=== PATIENT | male | born 1940 | race African-American/Black ===

== ENCOUNTER 2017-12-08 18:24 | Inpatient (IN) | payer OTHER, MEDICARE ==
[~2017-12-08] VITALS: Ht 175.3 cm; Wt 74.8 kg
[~2017-12-08 18:24] MED LIST: AMLO10TA2 PO; CLON0.1T PO; GABA300C5 PO; NALOXONE HCL 0.4 MG/ML AMP IV PUSH PRN; SODIUM CHLORIDE 0.9% FLUSH 10 ML FLUSH IV FLUSH PRN; WARF-18 PO
[2017-12-08] MEDS ORDERED: GADODIAMIDE PF 287 MG/ML 5 ML VIAL (for RAD MRI) IVCONTRAST ONE (18:35)
--- NOTE | 2017-12-08 19:28 | RADRPT ---
EXAM DATE/TIME: 12/08/2017 18:53 [facility] COMPARISON: No previous studies available for comparison. INDICATIONS : Bilateral leg swelling. MEDICAL HISTORY : Hypertension. Anticoagulant therapy, coumadin. SURGICAL HISTORY : None. ENCOUNTER: Initial ACUITY: 1 week PAIN SCORE: 2/10 LOCATION: Bilateral legs. TECHNIQUE: Venous ultrasound of the left and right leg was performed from the inguinal ligament to the proximal calf. Real-time, color Doppler and spectral tracing, compression and augmentation techniques were us ed. FINDINGS: RIGHT LEG: There is normal compressibility of the deep venous system from the inguinal region to the proximal ca lf. No echogenic clot is seen in the lumen of the common femoral, femoral, popliteal, and posterior tibial veins. There is a normal response of the venous system to proximal and distal augmentation an d respiration. LEFT LEG: There is normal compressibility of the deep venous system from the inguinal region to the proximal ca lf. No echogenic clot is seen in the lumen of the common femoral, femoral, popliteal, and posterior tibial veins. There is a normal response of the venous system to proximal and distal augmentation an d respiration. CONCLUSION: Normal examination. Manuel Perez MD on December 08, 2017 at 19:26 Board Certified Radiologist. This report was verified electronically.
--- NOTE | 2017-12-08 20:22 | HHI.HP ---
[facility] Non-Staff Admission Diagnosis Diagnoses: Travel History International Travel<30 Days: No Contact w/Intl Traveler <30 Da: No Traveled to Known Affected Are: No History of Present Illness hx from patient, at the bedside, daughter at the bedside, and review of records. pt is transferred here from [place] er reports headaches and dizziness for past 2 days poor historian closing his eyes during interview bp was high in [place] and here as well 189/85 vison problems over past few months no fever no neck pain urinary incontinence for past 1 yr or so denies missing his meds fell down today fell down last month once as well it wasnt witnessed , he told his he fell he stated he fell on his bottom did not hit head no syncope otherwise denies other symptoms but again, closing his eyes during interview likely due to headaches or photosensitivity though he denies when asked Review of Systems Except as stated in HPI: all other systems reviewed are Neg Past Family Social History Past Medical History htn chronic anticoagulation on coumadin- started 2weeks ago stated for circulation for his foot-was started only 2 weeks ago by new pcp who he saw 2 weeks ago Past Surgical History none Allergies: Coded Allergies: No Known Allergies (Unverified , 12/08/17) Family History none that he knows of Social History still smokes 1.5 pack a day drinks only if he has drinks at home - but not every day no drugs Physical Exam Physical Exam GENERAL: This is a well-nourished, well-developed patient, in no apparent distress. SKIN: No rashes, ecchymoses or lesions. Cool and dry. HEAD: Atraumatic. Normocephalic. No temporal or scalp tenderness. EYES: No scleral icterus. No injection or drainage. ENT: Nose without bleeding, purulent drainage or septal hematoma. Airway patent. NECK: Trachea midline. No JVD. Supple, nontender, no meningeal signs. CARDIOVASCULAR: Regular rate and rhythm without murmurs, gallops, or rubs. RESPIRATORY: Clear to auscultation. Breath sounds equal bilaterally. No wheezes , rales, or rhonchi. GASTROINTESTINAL: Abdomen soft, non-tender, nondistended. . No guarding. MUSCULOSKELETAL: Extremities without clubbing, cyanosis, or edema. No calf tenderness. NEUROLOGICAL: Awake and alert. Motor and sensory grossly within normal limits. Normal speech. Laboratory labs from [place] reviewed Imaging ct brain from [place] er reviewed Caprini VTE Risk Assessment Caprini VTE Risk Assessment: Mod/High Risk (score >= 2) Caprini Risk Assessment Model Point Value = 1 Point Value = 2 Point Value = 3 Point Value = 5 Age 41-60 Minor surgery BMI > 25 kg/m2 Swollen legs Varicose veins or History of unexplained or recurrent spontaneous Oral contraceptives or hormone replacement Sepsis (< 1 month) Serious lung disease, including pneumonia (< 1 month) Abnormal pulmonary function Acute myocardial infarction Congestive heart failure (< 1 month) History of inflammatory bowel disease Medical patient at bed rest Age 61-74 Arthroscopic surgery Major open surgery (> 45 min) Laparoscopic surgery (> 45 min) Malignancy Confined to bed (> 72 hours) Immobilizing plaster cast Central venous access Age >= 75 History of VTE Family history of VTE Factor V Leiden Prothrombin [id number] Lupus anticoagulant Anticardiolipin antibodies Elevated serum homocysteine Heparin-induced thrombocytopenia Other congenital or acquired thrombophilia Stroke (< 1 month) Elective arthroplasty Hip, pelvis, or leg fracture Acute spinal cord injury (< 1 month) Prophylaxis Regimen Total Risk Factor Score Risk Level Prophylaxis Regimen 0-1 Low Early ambulation 2 Moderate Order ONE of the following: *Sequential Compression Device (SCD) *Heparin 5000 units SQ BID 3-4 Higher Order ONE of the following medications: *Heparin 5000 units SQ TID *Enoxaparin/Lovenox 40 mg SQ daily (WT < 150 kg, CrCl > 30 mL/min) *Enoxaparin/Lovenox 30 mg SQ daily (WT < 150 kg, CrCl > 10-29 mL/min) *Enoxaparin/Lovenox 30 mg SQ BID (WT < 150 kg, CrCl > 30 mL/min) AND/OR *Sequential Compression Device (SCD) 5 or more Highest Order ONE of the following medications: *Heparin 5000 units SQ TID (Preferred with Epidurals) *Enoxaparin/Lovenox 40 mg SQ daily (WT < 150 kg, CrCl > 30 mL/min) *Enoxaparin/Lovenox 30 mg SQ daily (WT < 150 kg, CrCl > 10-29 mL/min) *Enoxaparin/Lovenox 30 mg SQ BID (WT < 150 kg, CrCl > 30 mL/min) AND *Sequential Compression Device (SCD) Assessment and Plan Assessment and Plan Impression: hypertensive urgency with headaches- requiring several doses of iv meds in ER and still high currently sellar mass on CT with visual disturbance/ dizziness/ falls chronic anticoagulation on coumadin LE swelling per ER chronic venous stasis on exam Plan: mri of brain US of LE - no dvt clonidine 0.1mg po qhs now hydralazine 10mg iv q30min PRN for BP>160/90 hold coumadin for now will get info from pcp re coumadin neurosx consult for sellar mass resume home meds scd change to full admit pt daisha Discussed Condition With patient, family at bedside Carmen Keller MD Dec 08, 2017 20:22
[2017-12-08] MEDS ORDERED: cloNIDine HCL 0.1 MG TAB PO SCH (21:00)
[2017-12-08] MEDS: GABAPENTIN 300 MG CAP PO SCH (21:04)
[2017-12-08] MEDS: SODIUM CHLORIDE 0.9% FLUSH 10 ML FLUSH IV FLUSH SCH (21:04)
[2017-12-08] MEDS: hydrALAZINE HCL 20 MG/ML VIAL IV PUSH PRN (21:04)
--- NOTE | 2017-12-08 21:08 | RADRPT ---
EXAM DATE/TIME: 12/08/2017 20:38 [facility] COMPARISON: CHEST SINGLE AP, December 08, 2017, 17:09. INDICATIONS : Dyspnea. MEDICAL HISTORY : Hypertension. SURGICAL HISTORY : None. ENCOUNTER: Initial ACUITY: 1 day PAIN SCORE: 0/10 LOCATION: Bilateral chest FINDINGS: A single view of the chest demonstrates no focal dense consolidation. Minimal scattered opacity proba kenyetta atelectasis. No effusion. No pneumothorax. Heart size within normal limits. Tortuous aorta. CONCLUSION: 1. No focal consolidation or significant effusion. Tortuous aorta. Manuel Perez MD on December 08, 2017 at 21:03 Board Certified Radiologist. This report was verified electronically.
[2017-12-08 21:12] VITALS: BP 199/88; PULSE 91; RESP 18; O2SAT 100
[2017-12-08] MEDS ORDERED: LABETALOL HCL 100 MG/20 ML VIAL IV PUSH ONE (22:00)
[2017-12-08 23:00] VITALS: BP 168/59; PULSE 78; RESP 18; O2SAT 92
--- NOTE | 2017-12-08 23:41 | RADRPT ---
EXAM DATE/TIME: 12/08/2017 21:51 [facility] COMPARISON: No previous studies available for comparison. INDICATIONS : Mass. Sellar mass. CONTRAST: 16 cc Omniscan (gadodiamide) IV MEDICAL HISTORY : Hypertension. SURGICAL HISTORY : None. ENCOUNTER: Initial ACUITY: 1 day PAIN SCORE: Nonresponsive. LOCATION: Basal ganglia lacunar infarcts. cranial TECHNIQUE: Multiplanar, multisequence MRI of the brain was performed both prior to and following the administrat ion of paramagnetic contrast. FINDINGS: CEREBRUM: The ventricles are normal for age. No evidence of midline shift, mass lesion, hemorrhage or acute in farction. No extraaxial fluid collections are seen. There is a large sellar/suprasellar mass which i s of mixed signal intensity and contains high T2 signal. This measures 2.6 x 1.7 cm and does abut the optic chiasm. No significant enhancement identified although there is some motion artifact limiting evaluation. WHITE MATTER: Scattered T2 bright signal abnormalities are seen in the white matter. POSTERIOR FOSSA: The cerebellum and brainstem are intact. The 4th ventricle is midline. The cerebellopontine angle is unremarkable. The cerebellar tonsils are normal in position. DIFFUSION IMAGING: No focal areas of restricted diffusion are seen. No evidence of acute infarction. EXTRACRANIAL: The visualized portions of the orbits and paranasal sinuses are unremarkable. POST-CONTRAST: No abnormal areas of parenchymal or dural enhancement. No evidence of blood-brain barrier breakdown. CONCLUSION: 1. 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 This is of mixed signal intensity. No definite enh ancement. 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 Followup study in 3 months recommended for kandice bone. 2. Cerebral atrophy with old bilateral basal ganglia lacunar infarcts. 3. The Sean Rodriguez MD on December 08, 2017 at 23:34 Board Certified Radiologist. This report was verified electronically.
[2017-12-09] VITALS (13 sets, daily range): BP systolic 139–208; BP diastolic 67–88; PULSE 85–125; RESP 16–30; TEMP 102.2–102.3; O2SAT 90–98
[2017-12-09] MEDS: hydrALAZINE HCL 20 MG/ML VIAL IV PUSH PRN ×3 (05:05→18:29)
[2017-12-09 06:40] LABS: BASOPHIL % 0.5 % (0.0-2.0); EOSINOPHIL # 0.1 TH/MM3 (0-0.4); EOSINOPHIL % 1.7 % (0.0-4.0); HEMATOCRIT 36.4 % (39.0-51.0); LYMPH % 22.4 % (9.0-44.0); LYMPHOCYTE # 1.5 TH/MM3 (1.0-4.8); MEAN CELL VOLUME 84.9 FL (80.0-100.0); MEAN CORPUSCULAR HEMOGLOBIN 28.1 PG (27.0-34.0); MEAN CORPUSCULAR HGB CONC 33.1 % (32.0-36.0); MEAN PLATELET VOLUME 7.9 FL (7.0-11.0); MONO % 16.1 % (0.0-8.0); MONOCYTE # 1.1 TH/MM3 (0-0.9); NEUT % 59.3 % (16.0-70.0); PLATELET COUNT 215 TH/MM3 (150-450); RED BLOOD COUNT 4.29 MIL/MM3 (4.50-5.90); WHITE BLOOD COUNT 6.8 TH/MM3 (4.0-11.0)
[2017-12-09 07:02] LABS: BICARBONATE 26.8 MEQ/L (21.0-32.0); CALCIUM 9.2 MG/DL (8.5-10.1); CREATININE 1.71 MG/DL (0.60-1.30)
[2017-12-09] MEDS: SODIUM CHLORIDE 0.9% FLUSH 10 ML FLUSH IV FLUSH SCH ×2 (09:30→20:13)
[2017-12-09] MEDS: GABAPENTIN 300 MG CAP PO SCH ×3 (09:30→21:00)
--- NOTE | 2017-12-09 09:38 | PD.CONS ---
HPI Service neurosurgery Consult Requested By Dr Smith Reason for Consult Mass Primary Care Physician Non-Staff History of Present Illness This is a 77 years old Black man who presented to the ER with the history of headaches and dizziness 2 days prior to admission His work up was significant for a suprasellar mass consistent with a macroadenoma. He is currently unable to provide a good history and in fact is only able to open his eyes but not able to answer questions. A sepsis alert was just released on him. He was also found to have high blood pressureas a hypertensive urgency. Past Family Social History Allergies: Coded Allergies: No Known Allergies (Unverified , 12/08/17) Past Medical History chronic anticoagulation on coumadin stated for circulation for his foot-was started only 2 weeks ago by new pcp who he saw 2 weeks ago Past Surgical History none Active Ordered Medications Current Medications Sodium Chloride (NS Flush) 2 ml UNSCH PRN IV FLUSH FLUSH AFTER USING IV ACCESS ; Start 12/08/17 at 15:45 Sodium Chloride (NS Flush) 2 ml BID IV FLUSH Last administered on 12/11/17at 21: 19; Start 12/08/17 at 21:00 Naloxone HCl (Narcan Inj) 0.4 mg UNSCH PRN IV PUSH SEE LABEL COMMENTS; Start at 15:45; Stop 12/10/17 at 13:16; Status DC Amlodipine Besylate (Norvasc) 10 mg DAILY PO Last administered on 12/11/17at 14: 19; Start 12/09/17 at 09:00 Clonidine (Catapres) 0.1 mg HS PO Last administered on 12/08/17at 21:04; Start at 21:00; Stop 12/09/17 at 16:09; Status DC Gabapentin (Neurontin) 300 mg BID PO Last administered on 12/11/17at 21:18; Start 12/08/17 at 21:00 Hydralazine HCl (Apresoline Inj) 10 mg Q30M PRN IV PUSH bp>160/70 Last administered on 12/09/17at 18:29; Start 12/08/17 at 20:45 Labetalol HCl (Trandate Inj) 20 mg ONCE ONCE IV PUSH Last administered on at 22:49; Start 12/08/17 at 22:00; Stop 12/08/17 at 22:01; Status DC Gadodiamide (Omniscan Pf Inj) 16 ml STK-MED ONCE IVCONTRAST Last administered on 12/08/17at 22:30; Start 12/08/17 at 18:35; Stop 12/08/17 at 22:18; Status DC Acetaminophen (Tylenol) 650 mg Q6HR PRN PO headache/fever/pain1-4 Last administered on 12/11/17at 21:18; Start 12/09/17 at 15:15 Doxazosin Mesylate (Cardura) 2 mg DAILY PO Last administered on 12/11/17at 14:19 ; Start 12/10/17 at 09:00 Doxazosin Mesylate (Cardura) 2 mg ONCE ONCE PO Last administered on 12/09/17at 17:02; Start 12/09/17 at 16:15; Stop 12/09/17 at 16:16; Status DC Clonidine (Catapres) 0.1 mg Q8HR PO ; Start 12/09/17 at 22:00; Stop 12/09/17 at 22:00; Status DC Clonidine (Catapres) 0.1 mg Q8HR PO Last administered on 12/12/17at 05:17; Start 12/09/17 at 16:15 Labetalol HCl (Trandate Inj) 10 mg Q6H PRN IV PUSH SYS BP GREATER THAN 170 MMHG Last administered on 12/10/17at 05:22; Start 12/09/17 at 16:15 Acetaminophen 100 ml @ 400 mls/hr ONCE ONCE IV Last administered on at 21:39; Start 12/09/17 at 21:30; Stop 12/09/17 at 21:44; Status DC Acetaminophen (Tylenol Supp) 650 mg Q6H PRN RECTAL fever Last administered on at 01:32; Start 12/10/17 at 04:45 Clonidine (Catapres-Tts 0.1mg Patch.7d) 1 patch Q7D T-DERMAL Last administered on 12/10/17at 12:38; Start 12/10/17 at 13:00 Morphine Sulfate (Morphine Inj) 2 mg Q3H PRN IV PUSH Pain 3-5; if unable to take PO; Start 12/10/17 at 11:45 Morphine Sulfate (Morphine Inj) 4 mg Q3H PRN IV PUSH Pain 6-10;if unable to take PO; Start 12/10/17 at 11:45 Morphine Sulfate (Morphine Inj) 4 mg Q3H PRN IV PUSH BREAKTHROUGH PAIN; Start 12/10/17 at 11:45 Naloxone HCl (Narcan Inj) 0.4 mg UNSCH PRN IV PUSH SEE LABEL COMMENTS; Start at 11:45 Miscellaneous Information 1 Q7D T-DERMAL ; Start 12/17/17 at 13:00 Piperacillin Sod/ Tazobactam Sod 50 ml @ 100 mls/hr Q8H IV Last administered on 12/12/17at 05:17; Start 12/10/17 at 14:00 Acetaminophen (Tylenol Supp) 650 mg NOW ONCE RECTAL Last administered on at 18:04; Start 12/10/17 at 18:00; Stop 12/10/17 at 18:01; Status DC Dextrose/Sodium Chloride 1,000 ml @ 100 mls/hr Q10H IV Last administered on 08/18at 21:20; Start 12/11/17 at 08:30 Sodium Chloride 500 ml @ 500 mls/hr BOLUS ONCE IV Last administered on at 08:30; Start 12/11/17 at 08:30; Stop 12/11/17 at 09:29; Status DC Nystatin (Mycostatin Liq) 5 ml QID SWISH-SWAL Last administered on 12/11/17at 21:18; Start 12/11/17 at 13:00 Family History His family history was reviewed and noncontriutory to his current condition Social History He smokes 1.5 pack a day drinks alcohol, but not every day no ilicit drug use Physical Exam Vital Signs Vital Signs Date Time Temp Pulse Resp B/P (MAP) Pulse Ox O2 Delivery O2 Flow Rate FiO2 12/09/17 09:07 89 18 168/71 (103) 97 Room Air 12/09/17 05:03 85 16 191/88 (122) 96 Room Air 12/08/17 23:00 78 18 168/59 (95) 92 Room Air 12/08/17 21:12 91 18 199/88 (125) 100 Physical Exam Well-nourished, well-developed patient, in no apparent distress. HEAD: Atraumatic. Normocephalic. No temporal or scalp tenderness. NECK: Trachea midline. No JVD or lymphadenopathy. Supple, nontender, no meningeal signs. CARDIOVASCULAR: Regular rate and rhythm without murmurs, gallops, or rubs. RESPIRATORY: Clear to auscultation. Breath sounds equal bilaterally. No wheezes , rales, or rhonchi. GASTROINTESTINAL: Abdomen soft, non-tender, nondistended. No hepato-splenomegaly , or palpable masses. No guarding. MUSCULOSKELETAL: Extremities without clubbing, cyanosis, or edema. No joint tenderness, effusion, or edema noted. No calf tenderness. Negative Homans sign bilaterally. SKIN: No rashes, ecchymoses or lesions. Warm and dry. Cranial nerve examination: pupils to be equal, round and reactive to light. Extra-ocular movements are intact. Facial motor and sensory function are normal and symmetrical. Gross hearing appears intact. Sternocleidomastoid and trapezius muscles are symmetrical. Other cranial nerves are intact. Muscle strength is normal in all muscle groups of both upper and lower extremities. Sensory examination is intact to light touch and pin prick in both the upper and lower extremities. Deep tendon reflexes are symmetrical in both upper and lower extremities. There is a bilateral plantar flexion response. Cerebellar examination is unremarkable, without deficits. Laboratory Laboratory Tests Test 12/09/17 04:12 White Blood Count 6.8 Red Blood Count 4.29 Hemoglobin 12.0 Hematocrit 36.4 Mean Corpuscular Volume 84.9 Mean Corpuscular Hemoglobin 28.1 Mean Corpuscular Hemoglobin Concent 33.1 Red Cell Distribution Width 14.0 Platelet Count 215 Mean Platelet Volume 7.9 Neutrophils (%) (Auto) 59.3 Lymphocytes (%) (Auto) 22.4 Monocytes (%) (Auto) 16.1 Eosinophils (%) (Auto) 1.7 Basophils (%) (Auto) 0.5 Neutrophils # (Auto) 4.0 Lymphocytes # (Auto) 1.5 Monocytes # (Auto) 1.1 Eosinophils # (Auto) 0.1 Basophils # (Auto) 0.0 CBC Comment DIFF FINAL Differential Comment Blood Urea Nitrogen 16 Creatinine 1.71 Random Glucose 91 Calcium Level 9.2 Sodium Level 136 Potassium Level 4.5 Chloride Level 101 Carbon Dioxide Level 26.8 Anion Gap 8 Estimat Glomerular Filtration Rate 48 Result Diagram: 12/09/1741112/09/17411 Imaging Last 48 hours Impressions Lower Extremity Ultrasound 12/08/171907 Signed Impressions: Service Date/Time: Friday, December 08, 2017 18:53 - CONCLUSION: Normal examination. Manuel Perez MD Brain MRI 12/08/171907 Signed Impressions: Service Date/Time: Friday, December 08, 2017 21:51 - CONCLUSION: 1. 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 This is of mixed signal intensity. No definite enhancement. 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 Followup study in 3 months recommended for stability. 2. Cerebral atrophy with old bilateral basal ganglia lacunar infarcts. 3. The Sean Rodriguez MD Chest X-Ray 12/08/17 0000 Signed Impressions: Service Date/Time: Friday, December 08, 2017 20:38 - CONCLUSION: 1. No focal consolidation or significant effusion. Tortuous aorta. Manuel Perez MD Attending Statement This is a 77 year old male with hypertensive urgency with headaches sellar mass chronic anticoagulation on coumadin LE swelling per ER, rule out DVT I reviewed her radiological studies Lower Extremity Ultrasound 12/08/171907 Signed Impressions: Service Date/Time: Friday, December 08, 2017 18:53 - CONCLUSION: Normal examination. Manuel Perez MD Brain MRI 12/08/171907 Signed Impressions: Service Date/Time: Friday, December 08, 2017 21:51 - CONCLUSION: 1. 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 This is of mixed signal intensity. No definite enhancement. 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 Followup study in 3 months recommended for stability. 2. Cerebral atrophy with old bilateral basal ganglia lacunar infarcts. 3. The Sean Rodriguez MD Chest X-Ray 12/08/17 0000 Signed Impressions: Service Date/Time: Friday, December 08, 2017 20:38 - CONCLUSION: 1. No focal consolidation or significant effusion. Tortuous aorta. Manuel Perez MD I do not see any evidence of pituitary apoplexy. Recommend neuro checks in a serial fashion. She will benefit by a formal ophalmological evaluation Consult endocrinilogy for eval of AM cortisol, TSH, T3, T4, ACTH, PROLACTINE, SOMATOMEDIN C, TESTOSTERONE, FSH, LH The patient is encephalopathic. In my opinion his encephalopathy is multifactorial. He has sepsis, likely urosepsis and encephalopathy related to hypertensive crisis In addition I suspect an aspiration pneumonia Hypertensive crisis. Aggressive treatment with intrtavenous meds,consider drip Consult endocrinology for full hormonal endocrinological workup He is on coumadin. Follow up PT and INR Pulmonary.aggressive pulmonary toilette, nasotracheal suction, and breathing treatments with nebulizers. Renal. monitor closely urine output, BUN and creatinine Endocrine. Monitor serial Acu checks and SSI as needed in detail ID Panculture and treat with antibiotics Protonix for stress ulcer prophylaxis Lower extremity ultrasound, rule out deep venous thrombosis Russell jones and SCD's for DVT prophylaxis Caprini VTE Risk Assessment Caprini Risk Assessment Model Point Value = 1 Point Value = 2 Point Value = 3 Point Value = 5 Age 41-60 Minor surgery BMI > 25 kg/m2 Swollen legs Varicose veins or History of unexplained or recurrent spontaneous Oral contraceptives or hormone replacement Sepsis (< 1 month) Serious lung disease, including pneumonia (< 1 month) Abnormal pulmonary function Acute myocardial infarction Congestive heart failure (< 1 month) History of inflammatory bowel disease Medical patient at bed rest Age 61-74 Arthroscopic surgery Major open surgery (> 45 min) Laparoscopic surgery (> 45 min) Malignancy Confined to bed (> 72 hours) Immobilizing plaster cast Central venous access Age >= 75 History of VTE Family history of VTE Factor V Leiden Prothrombin [id number] Lupus anticoagulant Anticardiolipin antibodies Elevated serum homocysteine Heparin-induced thrombocytopenia Other congenital or acquired thrombophilia Stroke (< 1 month) Elective arthroplasty Hip, pelvis, or leg fracture Acute spinal cord injury (< 1 month) Prophylaxis Regimen Total Risk Factor Score Risk Level Prophylaxis Regimen 0-1 Low Early ambulation 2 Moderate Order ONE of the following: *Sequential Compression Device (SCD) *Heparin 5000 units SQ BID 3-4 Higher Order ONE of the following medications: *Heparin 5000 units SQ TID *Enoxaparin/Lovenox 40 mg SQ daily (WT < 150 kg, CrCl > 30 mL/min) *Enoxaparin/Lovenox 30 mg SQ daily (WT < 150 kg, CrCl > 10-29 mL/min) *Enoxaparin/Lovenox 30 mg SQ BID (WT < 150 kg, CrCl > 30 mL/min) AND/OR *Sequential Compression Device (SCD) 5 or more Highest Order ONE of the following medications: *Heparin 5000 units SQ TID (Preferred with Epidurals) *Enoxaparin/Lovenox 40 mg SQ daily (WT < 150 kg, CrCl > 30 mL/min) *Enoxaparin/Lovenox 30 mg SQ daily (WT < 150 kg, CrCl > 10-29 mL/min) *Enoxaparin/Lovenox 30 mg SQ BID (WT < 150 kg, CrCl > 30 mL/min) AND *Sequential Compression Device (SCD) Aleksander Machado MD Dec 09, 2017 09:38
[2017-12-09] MEDS ORDERED: DOXAZOSIN MESYLATE 2 MG TAB PO ONE (16:15)
[2017-12-09] MEDS: cloNIDine HCL 0.1 MG TAB PO SCH ×3 (17:02→22:00)
--- NOTE | 2017-12-09 17:22 | HHI.PR ---
Subjective Remarks Patient denies cp/sob Denies headache BP severely elevated Objective Vitals Vital Signs Date Time Temp Pulse Resp B/P (MAP) Pulse Ox O2 Delivery O2 Flow Rate FiO2 12/09/17 16:06 78 18 170/70 (103) 97 12/09/17 15:53 104 18 196/86 (122) 98 Room Air 12/09/17 14:16 98 16 176/85 (115) 98 Room Air 12/09/17 09:07 89 18 168/71 (103) 97 Room Air 12/09/17 05:03 85 16 191/88 (122) 96 Room Air 12/08/17 23:00 78 18 168/59 (95) 92 Room Air 12/08/17 21:12 91 18 199/88 (125) 100 Result Diagram: 12/09/1741112/09/17411 Imaging Last Impressions Lower Extremity Ultrasound 12/08/171907 Signed Impressions: Service Date/Time: Friday, December 08, 2017 18:53 - CONCLUSION: Normal examination. Manuel Perez MD Brain MRI 12/08/171907 Signed Impressions: Service Date/Time: Friday, December 08, 2017 21:51 - CONCLUSION: 1. 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 This is of mixed signal intensity. No definite enhancement. 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 Followup study in 3 months recommended for stability. 2. Cerebral atrophy with old bilateral basal ganglia lacunar infarcts. 3. The Sean Rodriguez MD Chest X-Ray 12/08/17 0000 Signed Impressions: Service Date/Time: Friday, December 08, 2017 20:38 - CONCLUSION: 1. No focal consolidation or significant effusion. Tortuous aorta. Manuel Perez MD Objective Remarks Awake and alert nad PERRLA S1S2 RR, systolic III/ murmur, no rubs or gallops no edema in lower extremities Medications and IVs Current Medications Medications (Trade) Dose Ordered Sig/Karli Route Start Time Stop Time Status Last Admin (NS Flush) 2 ml UNSCH PRN IV FLUSH 12/08/17 15:45 (NS Flush) 2 ml BID IV FLUSH 12/08/17 21:00 12/09/17 09:30 (Narcan Inj) 0.4 mg UNSCH PRN IV PUSH 12/08/17 15:45 (Norvasc) 10 mg DAILY PO 12/09/17 09:00 12/09/17 09:30 (Neurontin) 300 mg BID PO 12/08/17 21:00 12/09/17 09:30 (Apresoline Inj) 10 mg Q30M PRN IV PUSH 12/08/17 20:45 12/09/17 15:52 (Tylenol) 650 mg Q6HR PRN PO 12/09/17 15:15 (Cardura) 2 mg DAILY PO 12/10/17 09:00 (Catapres) 0.1 mg Q8HR PO 12/09/17 16:15 12/09/17 17:02 (Trandate Inj) 10 mg Q6H PRN IV PUSH 12/09/17 16:15 A/P Assessment and Plan hypertensive urgency with headaches- requiring several doses of iv meds in ER and still high currently sellar mass with visual disturbance/ dizziness/ falls chronic anticoagulation on coumadin LE swelling per ER chronic venous stasis on exam JING Transfer patient to Step down/Intermediate care since BP severely elevated IV Labetalol and IV hydralazine as needed. avoid Patrice due to elevated creatinine no previous records of creatinine - monitor BUN Creatinine/avoid nephrotoxins. doppler negative ophtalmology consultation fu BMp - Creatinine elevated - no previous records available. Discharge Planning transfer patient to step down unit Mike Hennessy MD Dec 09, 2017 17:22
[2017-12-09] MEDS: ACETAMINOPHEN 325 MG TAB PO PRN ×2 (18:31→20:09)
[2017-12-09] MEDS: LABETALOL HCL 100 MG/20 ML VIAL IV PUSH PRN (20:10)
[2017-12-09] MEDS ORDERED: ACETAMINOPHEN 1000 MG/100 ML 100 ML IV ONE (21:30)
[2017-12-09] MEDS ORDERED: cloNIDine HCL 0.1 MG TAB PO SCH (22:00)
[2017-12-10] VITALS (27 sets, daily range): BP systolic 141–186; BP diastolic 58–81; PULSE 96–110; RESP 20–30; TEMP 99.9–101.8; O2SAT 94–99
[2017-12-10] MEDS: cloNIDine HCL 0.1 MG TAB PO SCH ×3 (05:16→22:10)
[2017-12-10] MEDS: LABETALOL HCL 100 MG/20 ML VIAL IV PUSH PRN (05:22)
[2017-12-10] MEDS: DOXAZOSIN MESYLATE 2 MG TAB PO SCH (09:00)
[2017-12-10] MEDS: GABAPENTIN 300 MG CAP PO SCH ×2 (09:00→22:10)
[2017-12-10] MEDS: SODIUM CHLORIDE 0.9% FLUSH 10 ML FLUSH IV FLUSH SCH ×2 (09:00→22:10)
[2017-12-10 11:25] LABS: AUTOMATED NEUTROPHIL # 6.3 TH/MM3 (1.8-7.7); BASOPHIL # 0.1 TH/MM3 (0-0.2); BASOPHIL % 0.7 % (0.0-2.0); EOSINOPHIL % 0.5 % (0.0-4.0); LYMPH % 13.3 % (9.0-44.0); LYMPHOCYTE # 1.2 TH/MM3 (1.0-4.8); MEAN CELL VOLUME 85.3 FL (80.0-100.0); MEAN CORPUSCULAR HEMOGLOBIN 28.3 PG (27.0-34.0); MEAN CORPUSCULAR HGB CONC 33.2 % (32.0-36.0); MEAN PLATELET VOLUME 8.1 FL (7.0-11.0); MONO % 14.4 % (0.0-8.0); MONOCYTE # 1.3 TH/MM3 (0-0.9); NEUT % 71.1 % (16.0-70.0); PLATELET COUNT 204 TH/MM3 (150-450); RED BLOOD COUNT 4.58 MIL/MM3 (4.50-5.90); RED CELL DISTRIBUTION WIDTH 14.1 % (11.6-17.2); WHITE BLOOD COUNT 8.8 TH/MM3 (4.0-11.0)
[2017-12-10] MEDS ORDERED: MORPHINE SULFATE 2 MG/ML SYRINGE IV PUSH PRN (11:45)
[2017-12-10] MEDS ORDERED: NALOXONE HCL 0.4 MG/ML AMP IV PUSH PRN (11:45)
[2017-12-10] MEDS ORDERED: MORPHINE SULFATE 4 MG/ML INJ IV PUSH PRN ×2 (11:45)
[2017-12-10 12:20] LABS: ALBUMIN 3.2 GM/DL (3.4-5.0); ALT (GPT) 30 U/L (12-78); AST (GOT) 67 U/L (15-37); BICARBONATE 21.5 MEQ/L (21.0-32.0); BLOOD UREA NITROGEN 22 MG/DL (7-18); CALCIUM 9.4 MG/DL (8.5-10.1); CHLORIDE 101 MEQ/L (98-107); CREATININE 2.19 MG/DL (0.60-1.30); GLOMERULAR FILTRATION RATE 36 ML/MIN (>89); GLUCOSE,RANDOM 100 MG/DL (74-106); MAGNESIUM 2.2 MG/DL (1.5-2.5); PHOSPHORUS 3.8 MG/DL (2.5-4.9); SODIUM (NA) 134 MEQ/L (136-145)
[2017-12-10] MEDS: ACETAMINOPHEN 650 MG SUPP RECTAL PRN (12:25)
[2017-12-10 12:29] LABS: ALKALINE PHOSPHATASE 74 U/L (45-117); FREE T4 1.06 NG/DL (0.76-1.46); TOTAL BILIRUBIN ADULT 1.4 MG/DL (0.2-1.0); TOTAL PROTEIN 7.7 GM/DL (6.4-8.2)
--- NOTE | 2017-12-10 12:40 | PD.CONS ---
History of Present Illness Service Ophthalmology Consult Requested By Reason for Consult visual disturbance Primary Care Physician Non-Staff Diagnoses: History of Present Illness 77 yo BM presented to ED with headaches x 2 days. Diagnosed with hypertensive urgency. Also c/o visual disturbance per notes. 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 Pt is currently not cooperative with questions or exam - refuses to wake up. Past Family Social History Allergies: Coded Allergies: No Known Allergies (Unverified , 12/08/17) Physical Exam Vital Signs Vital Signs Date Time Temp Pulse Resp B/P (MAP) Pulse Ox O2 Delivery O2 Flow Rate FiO2 12/10/17 07:37 100.3 102 24 160/77 (104) 96 12/10/17 06:50 96 12/10/17 06:00 101 12/10/17 05:29 101 141/75 (97) 97 12/10/17 05:18 100.6 106 20 186/79 (114) 96 12/10/17 05:00 106 12/10/17 04:00 101.8 107 30 148/70 (96) 94 12/10/17 04:00 106 12/10/17 03:00 106 12/10/17 02:00 100 12/10/17 01:00 104 12/10/17 00:00 100.7 101 20 149/58 (88) 99 12/10/17 00:00 98 12/09/17 23:00 104 12/09/17 22:00 104 12/09/17 21:00 106 12/09/17 20:15 102 20 139/67 (91) 96 12/09/17 20:00 121 12/09/17 20:00 102.2 125 30 169/79 (109) 95 12/09/17 18:11 117 20 182/77 (112) 12/09/17 17:15 108 12/09/17 16:16 102.3 104 19 208/88 (128) 90 12/09/17 16:06 78 18 170/70 (103) 97 12/09/17 15:53 104 18 196/86 (122) 98 Room Air 12/09/17 14:16 98 16 176/85 (115) 98 Room Air Physical Exam Va unable EOM unable CVF unable Pupils 2-1 no APD OU IOP normal to palpation OU Anterior exam OD - normal eyelid, C/S W&Q, K clear, AC deep, pupil round, cataract OS - normal eyelid, C/S W&Q, K clear, AC deep, pupil round, cataract Laboratory Laboratory Tests Test 12/10/17 09:45 White Blood Count 8.8 Red Blood Count 4.58 Hemoglobin 13.0 Hematocrit 39.0 Mean Corpuscular Volume 85.3 Mean Corpuscular Hemoglobin 28.3 Mean Corpuscular Hemoglobin Concent 33.2 Red Cell Distribution Width 14.1 Platelet Count 204 Mean Platelet Volume 8.1 Neutrophils (%) (Auto) 71.1 Lymphocytes (%) (Auto) 13.3 Monocytes (%) (Auto) 14.4 Eosinophils (%) (Auto) 0.5 Basophils (%) (Auto) 0.7 Neutrophils # (Auto) 6.3 Lymphocytes # (Auto) 1.2 Monocytes # (Auto) 1.3 Eosinophils # (Auto) 0.0 Basophils # (Auto) 0.1 CBC Comment DIFF FINAL Differential Comment Blood Urea Nitrogen 22 Creatinine 2.19 Random Glucose 100 Total Protein 7.7 Albumin 3.2 Calcium Level 9.4 Phosphorus Level 3.8 Magnesium Level 2.2 Alkaline Phosphatase 74 Aspartate Amino Transf (AST/SGOT) 67 Alanine Aminotransferase (ALT/SGPT) 30 Total Bilirubin 1.4 Sodium Level 134 Potassium Level 4.8 Chloride Level 101 Carbon Dioxide Level 21.5 Anion Gap 12 Estimat Glomerular Filtration Rate 36 Free Thyroxine 1.06 Thyroid Stimulating Hormone 3rd Gen 0.534 Result Diagram: 12/10/1745 12/10/1745 Assessment and Plan Problem List: (1) Suprasellar mass ICD Codes: R22.0 - Localized swelling, mass and lump, head Plan: Follow up as outpatient for dilated exam and formal Rivera visual field test. Office address and phone number given to family. Ximena Parada MD Dec 10, 2017 12:40
--- NOTE | 2017-12-10 12:51 | HHI.PR ---
Subjective Remarks headaches and dizziness for past 2 days poor historian closing his eyes during interview bp was high in [place] and here as well 189/85 vison problems over past few months no fever no neck pain urinary incontinence for past 1 yr or so denies missing his meds fell down today fell down last month once as well it wasn't witnessed , he told his he fell he stated he fell on his bottom did not hit head no syncope 4- Patient denies cp/sob Denies headache BP severely elevated 4- PATIENT REMAINS CONFUSED AND VERY LETHARGIC -NOT WAKING UP WELL DW RN AND PT AND CM AND FAMILY TO HAVE REPEAT CAT SCAN OF HEAD NOT ABLE TO SWALLOW WELL POCKETING FOOD DW FAMILY AT BEDSIDE PT AND OT AWAIT NEUROSURGERY CLEARANCE BP NOT AT GOAL YET ADD CATAPRES PATCH Q7D AM LABS Objective Vitals Vital Signs Date Time Temp Pulse Resp B/P (MAP) Pulse Ox O2 Delivery O2 Flow Rate FiO2 12/10/17 07:37 100.3 102 24 160/77 (104) 96 12/10/17 06:50 96 12/10/17 06:00 101 12/10/17 05:29 101 141/75 (97) 97 12/10/17 05:18 100.6 106 20 186/79 (114) 96 12/10/17 05:00 106 12/10/17 04:00 101.8 107 30 148/70 (96) 94 12/10/17 04:00 106 12/10/17 03:00 106 12/10/17 02:00 100 12/10/17 01:00 104 12/10/17 00:00 100.7 101 20 149/58 (88) 99 12/10/17 00:00 98 12/09/17 23:00 104 12/09/17 22:00 104 12/09/17 21:00 106 12/09/17 20:15 102 20 139/67 (91) 96 12/09/17 20:00 121 12/09/17 20:00 102.2 125 30 169/79 (109) 95 12/09/17 18:11 117 20 182/77 (112) 12/09/17 17:15 108 12/09/17 16:16 102.3 104 19 208/88 (128) 90 12/09/17 16:06 78 18 170/70 (103) 97 12/09/17 15:53 104 18 196/86 (122) 98 Room Air 12/09/17 14:16 98 16 176/85 (115) 98 Room Air I/O 12/09/17 12/09/17 12/09/17 12/10/17 12/10/17 12/10/17 07:00 15:00 23:00 07:00 15:00 23:00 Intake Total 240 ml Balance 240 ml Intake Oral 240 ml # Voids 2 Result Diagram: 12/10/17 0945 12/10/17 0945 Other Results Laboratory Tests Test 12/09/17 04:12 12/10/17 09:45 White Blood Count 6.8 TH/MM3 8.8 TH/MM3 Red Blood Count 4.29 MIL/MM3 4.58 MIL/MM3 Hemoglobin 12.0 GM/DL 13.0 GM/DL Hematocrit 36.4 % 39.0 % Mean Corpuscular Volume 84.9 FL 85.3 FL Mean Corpuscular Hemoglobin 28.1 PG 28.3 PG Mean Corpuscular Hemoglobin Concent 33.1 % 33.2 % Red Cell Distribution Width 14.0 % 14.1 % Platelet Count 215 TH/MM3 204 TH/MM3 Mean Platelet Volume 7.9 FL 8.1 FL Neutrophils (%) (Auto) 59.3 % 71.1 % Lymphocytes (%) (Auto) 22.4 % 13.3 % Monocytes (%) (Auto) 16.1 % 14.4 % Eosinophils (%) (Auto) 1.7 % 0.5 % Basophils (%) (Auto) 0.5 % 0.7 % Neutrophils # (Auto) 4.0 TH/MM3 6.3 TH/MM3 Lymphocytes # (Auto) 1.5 TH/MM3 1.2 TH/MM3 Monocytes # (Auto) 1.1 TH/MM3 1.3 TH/MM3 Eosinophils # (Auto) 0.1 TH/MM3 0.0 TH/MM3 Basophils # (Auto) 0.0 TH/MM3 0.1 TH/MM3 CBC Comment DIFF FINAL DIFF FINAL Differential Comment Blood Urea Nitrogen 16 MG/DL 22 MG/DL Creatinine 1.71 MG/DL 2.19 MG/DL Random Glucose 91 MG/DL 100 MG/DL Calcium Level 9.2 MG/DL 9.4 MG/DL Sodium Level 136 MEQ/L 134 MEQ/L Potassium Level 4.5 MEQ/L 4.8 MEQ/L Chloride Level 101 MEQ/L 101 MEQ/L Carbon Dioxide Level 26.8 MEQ/L 21.5 MEQ/L Anion Gap 8 MEQ/L 12 MEQ/L Estimat Glomerular Filtration Rate 48 ML/MIN 36 ML/MIN Total Protein 7.7 GM/DL Albumin 3.2 GM/DL Phosphorus Level 3.8 MG/DL Magnesium Level 2.2 MG/DL Alkaline Phosphatase 74 U/L Aspartate Amino Transf (AST/SGOT) 67 U/L Alanine Aminotransferase (ALT/SGPT) 30 U/L Total Bilirubin 1.4 MG/DL Free Thyroxine 1.06 NG/DL Thyroid Stimulating Hormone 3rd Gen 0.534 uIU/ML Imaging Last Impressions Lower Extremity Ultrasound 12/08/171907 Signed Impressions: Service Date/Time: Friday, December 08, 2017 18:53 - CONCLUSION: Normal examination. Manuel Perez MD Brain MRI [id number]/08/[id number] Signed Impressions: Service Date/Time: Friday, December 08, 2017 21:51 - CONCLUSION: 1. 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 This is of mixed signal intensity. No definite enhancement. 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 Followup study in 3 months recommended for stability. 2. Cerebral atrophy with old bilateral basal ganglia lacunar infarcts. 3. The Sean Rodriguez MD Chest X-Ray 12/08/17 0000 Signed Impressions: Service Date/Time: Friday, December 08, 2017 20:38 - CONCLUSION: 1. No focal consolidation or significant effusion. Tortuous aorta. Manuel Perez MD Objective Remarks GENERAL: Very lethargic only opens his left eye not very talkative and cooperative at this time we will get a CAT scan of his head SKIN: Warm and dry. HEAD: Atraumatic. Normocephalic. EYES: Pupils equal and round. No scleral icterus. No injection or drainage. OpenS left pupil ENT: No nasal bleeding or discharge. Mucous membranes pink and moist. NECK: Trachea midline. No JVD. CARDIOVASCULAR: Regular rate and rhythm. S1-S2 no S3 or S4 RESPIRATORY: No accessory muscle use. Clear to auscultation. Breath sounds equal bilaterally. GASTROINTESTINAL: Abdomen soft, non-tender, nondistended. Hepatic and splenic margins not palpable. MUSCULOSKELETAL: Extremities without clubbing, cyanosis, or edema. No obvious deformities. NEUROLOGICAL: NOT Awake and alert. No obvious cranial nerve deficits. Only opening left eye at this time. Motor grossly within normal limits. 3 out of 5 muscle strength in the arms and legs. ABNormal speech. PSYCHIATRIC: INAppropriate mood and affect; insight and judgment ABnormal. Medications and IVs Current Medications Sodium Chloride (NS Flush) 2 ml UNSCH PRN IV FLUSH FLUSH AFTER USING IV ACCESS ; Start 12/08/17 at 15:45 Sodium Chloride (NS Flush) 2 ml BID IV FLUSH Last administered on 12/09/17at 20: 13; Start 12/08/17 at 21:00 Naloxone HCl (Narcan Inj) 0.4 mg UNSCH PRN IV PUSH SEE LABEL COMMENTS; Start at 15:45 Amlodipine Besylate (Norvasc) 10 mg DAILY PO Last administered on 12/09/17 09: 30; Start 12/09/17 at 09:00 Clonidine (Catapres) 0.1 mg HS PO Last administered on 12/08/17at 21:04; Start at 21:00; Stop 12/09/17 at 16:09; Status DC Gabapentin (Neurontin) 300 mg BID PO Last administered on 12/09/17 09:30; Start 12/08/17 at 21:00 Hydralazine HCl (Apresoline Inj) 10 mg Q30M PRN IV PUSH bp>160/70 Last administered on 12/09/17at 18:29; Start 12/08/17 at 20:45 Labetalol HCl (Trandate Inj) 20 mg ONCE ONCE IV PUSH Last administered on at 22:49; Start 12/08/17 at 22:00; Stop 12/08/17 at 22:01; Status DC Gadodiamide (Omniscan Pf Inj) 16 ml STK-MED ONCE IVCONTRAST Last administered on 12/08/17at 22:30; Start 12/08/17 at 18:35; Stop 12/08/17 at 22:18; Status DC Acetaminophen (Tylenol) 650 mg Q6HR PRN PO headache/fever/pain1-4; Start at 15:15 Doxazosin Mesylate (Cardura) 2 mg DAILY PO ; Start 12/10/17 at 09:00 Doxazosin Mesylate (Cardura) 2 mg ONCE ONCE PO Last administered on 12/09/17at 17:02; Start 12/09/17 at 16:15; Stop 12/09/17 at 16:16; Status DC Clonidine (Catapres) 0.1 mg Q8HR PO ; Start 12/09/17 at 22:00; Stop 12/09/17 at 22:00; Status DC Clonidine (Catapres) 0.1 mg Q8HR PO Last administered on 12/09/17at 17:02; Start 12/09/17 at 16:15 Labetalol HCl (Trandate Inj) 10 mg Q6H PRN IV PUSH SYS BP GREATER THAN 170 MMHG Last administered on 12/10/17at 05:22; Start 12/09/17 at 16:15 Acetaminophen 100 ml @ 400 mls/hr ONCE ONCE IV Last administered on at 21:39; Start 12/09/17 at 21:30; Stop 12/09/17 at 21:44; Status DC Acetaminophen (Tylenol Supp) 650 mg Q6H PRN RECTAL fever Last administered on at 12:25; Start 12/10/17 at 04:45 Clonidine (Catapres-Tts 0.1mg Patch.7d) 1 patch Q7D T-DERMAL Last administered on 12/10/17at 12:38; Start 12/10/17 at 13:00 Morphine Sulfate (Morphine Inj) 2 mg Q3H PRN IV PUSH Pain 3-5; if unable to take PO; Start 12/10/17 at 11:45 Morphine Sulfate (Morphine Inj) 4 mg Q3H PRN IV PUSH Pain 6-10;if unable to take PO; Start 12/10/17 at 11:45 Morphine Sulfate (Morphine Inj) 4 mg Q3H PRN IV PUSH BREAKTHROUGH PAIN; Start 12/10/17 at 11:45 Naloxone HCl (Narcan Inj) 0.4 mg UNSCH PRN IV PUSH SEE LABEL COMMENTS; Start at 11:45 Miscellaneous Information 1 Q7D T-DERMAL ; Start 12/17/17 at 13:00 A/P Assessment and Plan hypertensive urgency with headaches- requiring several doses of iv meds in ER and still high currently sellar mass with visual disturbance/ dizziness/ falls chronic anticoagulation on coumadin LE swelling per ER chronic venous stasis on exam JING Fevers Transfer patient to Step down/Intermediate care since BP severely elevated IV Labetalol and IV hydralazine as needed. avoid Patrice due to elevated creatinine no previous records of creatinine - monitor BUN Creatinine/avoid nephrotoxins. doppler negative ophthalmology consultation fu BMp - Creatinine elevated - no previous records available. A.m. labs Physical therapy and occupational therapy to eval and treat discussed with family Speech for swallow evaluation appears to be pocketing food Discussed with patient and RN and case management Discharge Planning Full admission at this time not cleared for disc Bernardino Bonilla DO Dec 10, 2017 12:51
[2017-12-10] MEDS ORDERED: cloNIDine HCL 0.1 MG/24 HR PATCH T-DERMAL SCH (13:00)
--- NOTE | 2017-12-10 13:39 | RADRPT ---
EXAM DATE/TIME: 12/10/2017 12:58 [facility] COMPARISON: MRI BRAIN W & W/O CONTRAST, December 08, 2017, 21:51. CT BRAIN W/O CONTRAST, December 08, 2017, 13:05. INDICATIONS : Altered mental status RADIATION DOSE: 40.01 CTDIvol (mGy) MEDICAL HISTORY : Cardiovascular disease. Hypertension. SURGICAL HISTORY : None. ENCOUNTER: Initial ACUITY: 1 day PAIN SCALE: Non-responsive LOCATION: cranial TECHNIQUE: Multiple contiguous axial images were obtained of the head. Using automated exposure control and adj ustment of the mA and/or kV according to patient size, radiation dose was kept as low as reasonably a chievable to obtain optimal diagnostic quality images. DICOM format image data is available electro nically for review and comparison. FINDINGS: There is a sellar/suprasellar mass which has been described on recent studies including MRI of the br ain. Old lacunar infarcts are noted within the bilateral basal ganglia. Cerebral atrophy and moderate periventricular/subcortical white matter small vessel ischemic changes are stable. No acute infarct, acute hemorrhage or midline shift is noted. No extra-axial bleed is noted. CONCLUSION: 1. Sellar/suprasellar mass which has been described on recent studies including MRI of the brain. 2. Stable cerebral atrophy and moderate periventricular/subcortical white matter small vessel ischemi c changes bilaterally. 3. 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 4. No acute infarct, acute hemorrhage, midline shift or extra-axial bleed. Thien Elkins MD on December 10, 2017 at 13:34 Board Certified Radiologist. This report was verified electronically.
--- NOTE | 2017-12-10 13:52 | PD.CONS ---
History of Present Illness Service Endocrinology Consult Requested By Admitting Provider Reason for Consult Pituitary Tumor Primary Care Physician Non-Staff Diagnoses: History of Present Illness This is a 77 years old Black man who presented to the ER with the history of headaches and dizziness for the last 2 days prior to admission His work up was significant for a suprasellar mass consistent with a macroadenoma. He is currently unable to provide a good history and in fact is only able to open his eyes but not able to answer questions. His I understand has just left for lunch. Otherwise a sepsis allert was just released on him. He was also found to have high blood pressure readings in the emergency departmen wt whic his being handled as a hypertensive urgency. Review of Systems ROS Limitations: Unresponsive (patient is not able to give a history and there are no family members at the bedside at this point. ) Past Family Social History Allergies: Coded Allergies: No Known Allergies (Unverified , 12/08/17) Past Medical History Per chart review the patient has a history of HTN, chronic anticoagulation and venous stasis. Past Surgical History Per chart review negative/unknown Reported Medications Patient unable to give history at this point. Per chart review was on Coumadin at home. Active Ordered Medications Please see chart Family History Unknown. Patient unable to provide history and family member not available at this point Social History patient is . His is currently not available. Per chart review he still smokes about 1 and 1/2 packs per day and otherwise history of ETOH abuse or recreational drug use is not available. Unknown if he is currently or what type of previous employment he had. Physical Exam Vital Signs Vital Signs Date Time Temp Pulse Resp B/P (MAP) Pulse Ox O2 Delivery O2 Flow Rate FiO2 12/10/17 07:37 100.3 102 24 160/77 (104) 96 12/10/17 06:50 96 12/10/17 06:00 101 12/10/17 05:29 101 141/75 (97) 97 12/10/17 05:18 100.6 106 20 186/79 (114) 96 12/10/17 05:00 106 12/10/17 04:00 101.8 107 30 148/70 (96) 94 12/10/17 04:00 106 12/10/17 03:00 106 12/10/17 02:00 100 12/10/17 01:00 104 12/10/17 00:00 100.7 101 20 149/58 (88) 99 12/10/17 00:00 98 12/09/17 23:00 104 12/09/17 22:00 104 12/09/17 21:00 106 12/09/17 20:15 102 20 139/67 (91) 96 12/09/17 20:00 121 12/09/17 20:00 102.2 125 30 169/79 (109) 95 12/09/17 18:11 117 20 182/77 (112) 12/09/17 17:15 108 12/09/17 16:16 102.3 104 19 208/88 (128) 90 12/09/17 16:06 78 18 170/70 (103) 97 12/09/17 15:53 104 18 196/86 (122) 98 Room Air 12/09/17 14:16 98 16 176/85 (115) 98 Room Air Physical Exam GENERAL: This is a somnolent Black man not able to provide a history. He is not able to answer questions and when I wake him up he goes back to sleep. Otherwise he does not seem to be in no apparent distress. SKIN: No rashes, ecchymoses or lesions. Cool and dry. HEAD: Atraumatic. Normocephalic. There is a foul smell when he opens his mouth. EYES: extraocular movements are hard to evaluate. No scleral icterus. No injection or drainage. ENT: Nose without bleeding, purulent drainage. Throat: patient unable to cooperate. NECK: Trachea midline. No JVD or lymphadenopathy. . CARDIOVASCULAR: Regular rate and rhythm. The patient has a systolic murmur on the left precordium 2/6 but has no gallops or rubs. RESPIRATORY: Clear to auscultation. Breath sounds equal bilaterally. No wheezes , rales, or rhonchi. GASTROINTESTINAL: Abdomen soft, non-tender, nondistended. No hepato-splenomegaly , or palpable masses. No guarding. MUSCULOSKELETAL: Extremities without clubbing, cyanosis, or edema. No joint tenderness, effusion, or edema noted. The lower extremities show very significant hyperpigmented discoloration reminiscent of venous insufficiency. . NEUROLOGICAL: patient is somnolent not able to give a history. His deep tendon reflexes on his upper extremities are present and normal. He is not able to cooperate with the rest of the examination. Laboratory Laboratory Tests Test 12/10/17 09:45 White Blood Count 8.8 Red Blood Count 4.58 Hemoglobin 13.0 Hematocrit 39.0 Mean Corpuscular Volume 85.3 Mean Corpuscular Hemoglobin 28.3 Mean Corpuscular Hemoglobin Concent 33.2 Red Cell Distribution Width 14.1 Platelet Count 204 Mean Platelet Volume 8.1 Neutrophils (%) (Auto) 71.1 Lymphocytes (%) (Auto) 13.3 Monocytes (%) (Auto) 14.4 Eosinophils (%) (Auto) 0.5 Basophils (%) (Auto) 0.7 Neutrophils # (Auto) 6.3 Lymphocytes # (Auto) 1.2 Monocytes # (Auto) 1.3 Eosinophils # (Auto) 0.0 Basophils # (Auto) 0.1 CBC Comment DIFF FINAL Differential Comment Blood Urea Nitrogen 22 Creatinine 2.19 Random Glucose 100 Total Protein 7.7 Albumin 3.2 Calcium Level 9.4 Phosphorus Level 3.8 Magnesium Level 2.2 Alkaline Phosphatase 74 Aspartate Amino Transf (AST/SGOT) 67 Alanine Aminotransferase (ALT/SGPT) 30 Total Bilirubin 1.4 Sodium Level 134 Potassium Level 4.8 Chloride Level 101 Carbon Dioxide Level 21.5 Anion Gap 12 Estimat Glomerular Filtration Rate 36 Free Thyroxine 1.06 Thyroid Stimulating Hormone 3rd Gen 0.534 Result Diagram: 12/10/1794412/10/17944 Assessment and Plan Assessment and Plan Suprasellar Pituitary Mass Hyponatremia Abnormal BMP Mental status changes History of Headaches In his case the patient seems to be euthyroid at the moment. I will obtain a IGF -1, prolactiin level, total and free testosterone, LH, FSH and morning cortisol for evaluation. From an endocrine perspective recommend to continue with general medicine work up and supportive management. Will follow. Edmar Perez MD Dec 10, 2017 13:52
--- NOTE | 2017-12-10 13:56 | RADRPT ---
EXAM DATE/TIME: 12/10/2017 13:30 [facility] COMPARISON: CHEST SINGLE AP, December 08, 2017, 20:38. INDICATIONS : Shortness of breath. MEDICAL HISTORY : Cardiovascular disease. Hypertension. SURGICAL HISTORY : None. ENCOUNTER: Subsequent ACUITY: 3 days PAIN SCORE: Non-responsive. LOCATION: Bilateral chest FINDINGS: Minimal parenchymal changes left base new from the interval. Right lung clear.. The cardiomediastin al contours are unremarkable. Osseous structures are intact. CONCLUSION: New parenchymal changes right base Bernardino Santo MD FACR on December 10, 2017 at 13:52 Board Certified Radiologist. This report was verified electronically.
[2017-12-10] MEDS: PIPERACIL-TAZO 3.375 GM PREMIX 50 ML IV SCH ×2 (15:37→22:10)
--- NOTE | 2017-12-10 16:12 | HHI.NSPN ---
(Jeanie Llanes) Note Status Status: Progress Note (Jeanie Llanes) Interval History Interval History This is a 77 years old Black man who presented to the ER with the history of headaches and dizziness 2 days prior to admission His work up was significant for a suprasellar mass consistent with a macroadenoma. He is currently unable to provide a good history and in fact is only able to open his eyes but not able to answer questions. A sepsis alert was just released on him. He was also found to have high blood pressure a hypertensive urgency. 12/10: continues to appear lethargic, opens eyes and follows intermittent only few simple commands then falls back asleep. (Jeanie Llanes) Labs, Micro, & Vital Signs Results Date Time Temp Pulse Resp B/P (MAP) Pulse Ox O2 Delivery O2 Flow Rate FiO2 12/10/17 15:00 101.0 102 24 164/81 (108) 99 12/10/17 14:00 102 12/10/17 13:00 110 12/10/17 11:37 100.2 109 24 160/79 (106) 96 12/10/17 11:00 100 12/10/17 10:00 108 12/10/17 09:00 106 12/10/17 08:00 104 12/10/17 07:37 100.3 102 24 160/77 (104) 96 12/10/17 07:00 96 12/10/17 06:50 96 12/10/17 06:00 101 12/10/17 05:29 101 141/75 (97) 97 12/10/17 05:18 100.6 106 20 186/79 (114) 96 12/10/17 05:00 106 12/10/17 04:00 101.8 107 30 148/70 (96) 94 12/10/17 04:00 106 12/10/17 03:00 106 12/10/17 02:00 100 12/10/17 01:00 104 12/10/17 00:00 100.7 101 20 149/58 (88) 99 12/10/17 00:00 98 12/09/17 23:00 104 12/09/17 22:00 104 12/09/17 21:00 106 12/09/17 20:15 102 20 139/67 (91) 96 12/09/17 20:00 121 12/09/17 20:00 102.2 125 30 169/79 (109) 95 12/09/17 18:11 117 20 182/77 (112) 12/09/17 17:15 108 12/09/17 16:16 102.3 104 19 208/88 (128) 90 12/09/17 16:06 78 18 170/70 (103) 97 Constitutional Vital Signs Date Time Temp Pulse Resp B/P (MAP) Pulse Ox O2 Delivery O2 Flow Rate FiO2 12/10/17 15:00 101.0 102 24 164/81 (108) 99 12/10/17 14:00 102 12/10/17 13:00 110 12/10/17 11:37 100.2 109 24 160/79 (106) 96 12/10/17 11:00 100 12/10/17 10:00 108 12/10/17 09:00 106 12/10/17 08:00 104 12/10/17 07:37 100.3 102 24 160/77 (104) 96 12/10/17 07:00 96 12/10/17 06:50 96 12/10/17 06:00 101 12/10/17 05:29 101 141/75 (97) 97 12/10/17 05:18 100.6 106 20 186/79 (114) 96 12/10/17 05:00 106 12/10/17 04:00 101.8 107 30 148/70 (96) 94 12/10/17 04:00 106 12/10/17 03:00 106 12/10/17 02:00 100 12/10/17 01:00 104 12/10/17 00:00 100.7 101 20 149/58 (88) 99 12/10/17 00:00 98 12/09/17 23:00 104 12/09/17 22:00 104 12/09/17 21:00 106 12/09/17 20:15 102 20 139/67 (91) 96 12/09/17 20:00 121 12/09/17 20:00 102.2 125 30 169/79 (109) 95 12/09/17 18:11 117 20 182/77 (112) 12/09/17 17:15 108 12/09/17 16:16 102.3 104 19 208/88 (128) 90 12/09/17 16:06 78 18 170/70 (103) 97 (Jeanie Llanes) Review of Systems ROS Limitations: Altered Mental Status (Jeanie Llanes) Physical Exam Mr. Molina is an elderly -[place] male. HEENT: Normocephalic, nonicteric sclera Neuro: lethargic, drowsy, only says few words, not really answering questions nor consistently following commands. Cranial nerve examination: pupils equal, round. Facial motor function appears symmetrical at rest. Right ptosis. Face sensation, hearing, visual thacker, and olfaction can not be assessed properly due to the patients condition. Neck is soft and supple. Motor: raised his arms above the bed to command, withdrew his legs to pain stimuli. Otherwise exam limited due to his clinical condition Cerebellar examination is limited due to the patient condition, but no obvious deficits are noted. Heart: Regular rate rhythm Lungs: Clear no wheezes (Jeanie Llanes) Mr. Molina is an elderly -[place] male. HEENT: Normocephalic, nonicteric sclera Neuro: lethargic, drowsy, only says few words, not really answering questions nor consistently following commands. Cranial nerve examination: pupils equal, round. Facial motor function appears symmetrical at rest. Right ptosis. Face sensation, hearing, visual thacker, and olfaction can not be assessed properly due to the patients condition. Neck is soft and supple. Motor: raised his arms above the bed to command, withdrew his legs to pain stimuli. Otherwise exam limited due to his clinical condition Cerebellar examination is limited due to the patient condition, but no obvious deficits are noted. Heart: Regular rate rhythm Lungs: Clear no wheezes (Aleksander Machado MD) Medications Current Medications Current Medications Medications (Trade) Dose Ordered Sig/Karli Route PRN Reason Start Time Stop Time Status Last Admin Dose Admin Sodium Chloride (NS Flush) 2 ml UNSCH PRN IV FLUSH FLUSH AFTER USING IV ACCESS 12/08/17 15:45 Sodium Chloride (NS Flush) 2 ml BID IV FLUSH 12/08/17 21:00 12/10/17 09:00 Amlodipine Besylate (Norvasc) 10 mg DAILY PO 12/09/17 09:00 12/09/17 09:30 Gabapentin (Neurontin) 300 mg BID PO 12/08/17 21:00 12/09/17 09:30 Hydralazine HCl (Apresoline Inj) 10 mg Q30M PRN IV PUSH bp>160/70 12/08/17 20:45 12/09/17 18:29 Acetaminophen (Tylenol) 650 mg Q6HR PRN PO headache/fever/pain1-4 12/09/17 15:15 Doxazosin Mesylate (Cardura) 2 mg DAILY PO 12/10/17 09:00 Clonidine (Catapres) 0.1 mg Q8HR PO 12/09/17 16:15 12/09/17 17:02 Labetalol HCl (Trandate Inj) 10 mg Q6H PRN IV PUSH SYS BP GREATER THAN 170 MMHG 12/09/17 16:15 12/10/17 05:22 Acetaminophen (Tylenol Supp) 650 mg Q6H PRN RECTAL fever 12/10/17 04:45 12/10/17 12:25 Clonidine (Catapres-Tts 0.1mg Patch.7d) 1 patch Q7D T-DERMAL 12/10/17 13:00 12/10/17 12:38 Morphine Sulfate (Morphine Inj) 2 mg Q3H PRN IV PUSH Pain 3-5; if unable to take PO 12/10/17 11:45 Morphine Sulfate (Morphine Inj) 4 mg Q3H PRN IV PUSH Pain 6-10;if unable to take PO 12/10/17 11:45 Morphine Sulfate (Morphine Inj) 4 mg Q3H PRN IV PUSH BREAKTHROUGH PAIN 12/10/17 11:45 Naloxone HCl (Narcan Inj) 0.4 mg UNSCH PRN IV PUSH SEE LABEL COMMENTS 12/10/17 11:45 Miscellaneous Information 1 Q7D T-DERMAL 12/17/17 13:00 Piperacillin Sod/ Tazobactam Sod 50 ml @ 100 mls/hr Q8H IV 12/10/17 14:00 12/10/17 15:37 (Jeanie Llanes) Current Medications Current Medications Sodium Chloride (NS Flush) 2 ml UNSCH PRN IV FLUSH FLUSH AFTER USING IV ACCESS ; Start 12/08/17 at 15:45 Sodium Chloride (NS Flush) 2 ml BID IV FLUSH Last administered on 12/14/17at 08: 37; Start 12/08/17 at 21:00 Naloxone HCl (Narcan Inj) 0.4 mg UNSCH PRN IV PUSH SEE LABEL COMMENTS; Start at 15:45; Stop 12/10/17 at 13:16; Status DC Amlodipine Besylate (Norvasc) 10 mg DAILY PO Last administered on 12/14/17at 08: 37; Start 12/09/17 at 09:00 Clonidine (Catapres) 0.1 mg HS PO Last administered on 12/08/17at 21:04; Start at 21:00; Stop 12/09/17 at 16:09; Status DC Gabapentin (Neurontin) 300 mg BID PO Last administered on 12/14/17at 08:37; Start 12/08/17 at 21:00 Hydralazine HCl (Apresoline Inj) 10 mg Q30M PRN IV PUSH bp>160/70 Last administered on 12/13/17at 18:06; Start 12/08/17 at 20:45 Labetalol HCl (Trandate Inj) 20 mg ONCE ONCE IV PUSH Last administered on at 22:49; Start 12/08/17 at 22:00; Stop 12/08/17 at 22:01; Status DC Gadodiamide (Omniscan Pf Inj) 16 ml STK-MED ONCE IVCONTRAST Last administered on 12/08/17at 22:30; Start 12/08/17 at 18:35; Stop 12/08/17 at 22:18; Status DC Acetaminophen (Tylenol) 650 mg Q6HR PRN PO headache/fever/pain1-4 Last administered on 12/14/17at 12:38; Start 12/09/17 at 15:15 Doxazosin Mesylate (Cardura) 2 mg DAILY PO Last administered on 12/14/17at 08:37 ; Start 12/10/17 at 09:00 Doxazosin Mesylate (Cardura) 2 mg ONCE ONCE PO Last administered on 12/09/17at 17:02; Start 12/09/17 at 16:15; Stop 12/09/17 at 16:16; Status DC Clonidine (Catapres) 0.1 mg Q8HR PO ; Start 12/09/17 at 22:00; Stop 12/09/17 at 22:00; Status DC Clonidine (Catapres) 0.1 mg Q8HR PO Last administered on 12/12/17at 14:37; Start 12/09/17 at 16:15; Stop 12/12/17 at 15:46; Status DC Labetalol HCl (Trandate Inj) 10 mg Q6H PRN IV PUSH SYS BP GREATER THAN 170 MMHG Last administered on 12/13/17at 18:49; Start 12/09/17 at 16:15 Acetaminophen 100 ml @ 400 mls/hr ONCE ONCE IV Last administered on at 21:39; Start 12/09/17 at 21:30; Stop 12/09/17 at 21:44; Status DC Acetaminophen (Tylenol Supp) 650 mg Q6H PRN RECTAL fever Last administered on at 01:32; Start 12/10/17 at 04:45 Clonidine (Catapres-Tts 0.1mg Patch.7d) 1 patch Q7D T-DERMAL Last administered on 12/10/17at 12:38; Start 12/10/17 at 13:00; Stop 12/12/17 at 15:47; Status DC Morphine Sulfate (Morphine Inj) 2 mg Q3H PRN IV PUSH Pain 3-5; if unable to take PO; Start 12/10/17 at 11:45; Status Cancel Morphine Sulfate (Morphine Inj) 4 mg Q3H PRN IV PUSH Pain 6-10;if unable to take PO; Start 12/10/17 at 11:45; Status Cancel Morphine Sulfate (Morphine Inj) 4 mg Q3H PRN IV PUSH BREAKTHROUGH PAIN; Start 12/10/17 at 11:45; Status Cancel Naloxone HCl (Narcan Inj) 0.4 mg UNSCH PRN IV PUSH SEE LABEL COMMENTS; Start at 11:45; Status Cancel Miscellaneous Information 1 Q7D T-DERMAL ; Start 12/17/17 at 13:00; Status Cancel Piperacillin Sod/ Tazobactam Sod 50 ml @ 100 mls/hr Q8H IV Last administered on 12/14/17at 12:38; Start 12/10/17 at 14:00 Acetaminophen (Tylenol Supp) 650 mg NOW ONCE RECTAL Last administered on at 18:04; Start 12/10/17 at 18:00; Stop 12/10/17 at 18:01; Status DC Dextrose/Sodium Chloride 1,000 ml @ 50 mls/hr Q20H IV Last administered on at 05:09; Start 12/11/17 at 08:30 Sodium Chloride 500 ml @ 500 mls/hr BOLUS ONCE IV Last administered on at 08:30; Start 12/11/17 at 08:30; Stop 12/11/17 at 09:29; Status DC Nystatin (Mycostatin Liq) 5 ml QID SWISH-SWAL Last administered on 12/14/17at 16:09; Start 12/11/17 at 13:00 Metoprolol Tartrate (Lopressor) 25 mg Q8H PO Last administered on 12/14/17at 16: 08; Start 12/12/17 at 16:00 Clonidine (Catapres) 0.1 mg Q6H PRN PO SBP>160, DBP>90 Last administered on at 08:51; Start 12/12/17 at 15:45 (Aleksander Machado MD) Medical Decision Making MDM Remarks 77-year-old male who presented with headaches, altered mental status MRI showed pituitary macroadenoma (Jeanie Llanes) Plan Plan Remarks Continue nonsurgical management of pituitary macroadenoma Evaluation with ophthalmology and endocrinology Dr. Machado also request evaluation with neurologist for headaches (Jeanie Llanes) Attending Statement 77-year-old male who presented with headaches, altered mental status MRI showed pituitary macroadenoma Toxic Metabolic Encephalopathy due to multifactorial- Sepsis, UTI, aspiration pneumonia continue nonsurgical management of pituitary macroadenoma Evaluation with ophthalmology pending Fever and abnormal urinalysis in a patient presenting with headache and dizziness. His lumbar puncture revealing 3 white cells and normal glucose with elevated protein. known pituitary massconsistent with a pituitary adenoma. Continue nonoperative management. Endocrinological workup in progress Pneumonia based on abnormal chest x-ray with parenchymal changes at the right base. Possibly this could be from aspiration pneumonia. Acute renal disease careful fluid hydration, monitor BUN and creatinine ID Continue piperacillin/tazobactam. Repeat the urine culture since the current culture just shows mixed organisms. Continue Protonix for stress ulcer prophylaxis HANNY hose and SCDs for DVT prophylaxis 77-year-old male who presented with headaches, altered mental status MRI showed pituitary macroadenoma Toxic Metabolic Encephalopathy due to multifactorial- Sepsis, UTI, aspiration pneumonia continue nonsurgical management of pituitary macroadenoma Evaluation with ophthalmology pending Fever and abnormal urinalysis in a patient presenting with headache and dizziness. His lumbar puncture revealing 3 white cells and normal glucose with elevated protein. known pituitary massconsistent with a pituitary adenoma. Continue nonoperative management. Endocrinological workup in progress Pneumonia based on abnormal chest x-ray with parenchymal changes at the right base. Possibly this could be from aspiration pneumonia. Acute renal disease careful fluid hydration, monitor BUN and creatinine ID Continue piperacillin/tazobactam. Repeat the urine culture since the current culture just shows mixed organisms. Continue Protonix for stress ulcer prophylaxis HANNY hose and SCDs for DVT prophylaxis The exam, history, and the medical decision-making described in the above note were completed with the assistance of the mid-level provider. I reviewed and agree with the findings presented. I attest that I had a [id number] encounter with the patient on the same day, and personally performed and documented my assessment and findings in the medical record. (Aleksander Machado MD) Jeanie Llanes Dec 10, 2017 16:12 Aleksander Machado MD Dec 14, 2017 21:02
--- NOTE | 2017-12-10 16:19 | MB ---
cc: Spencer Rodney MD DATE: 12/10/2017 HISTORY OF PRESENT ILLNESS: He is a 77-year-old seen in neurological consultation in regards to altered mental status. The patient was brought to the hospital, apparently with a few day history of headaches, dizziness and some visual complaints going on for months. He is unable to provide history. Cooperation is limited. His was at bedside and provided some additional information, though she is not a good historian either. The patient apparently smokes but no longer drinking, says his last drink was months ago. He does not drive. He walks without assistive device. He came in with hypertensive urgency. He was treated emergently in the emergency room. A sellar mass was discovered, unclear if this is new or old. He takes Coumadin, was vague about this, unclear if he takes it for DVTs or not. No apparent history of stroke. When questioning the admits that he usually uses diapers as he is unable to control his bladder well. NEUROLOGIC EXAM: Shows the patient to be asleep, somewhat lethargic, poor participant. Upon awakening with moderate stimulation he often was quiet but sometimes randomly answered questions that his asked or the nurse and I really needed to stimulate his chest moderately in order to get some response. He did follow some commands. He moves all 4 extremities. His reflexes were trace but present at the elbows and knees, probably absent at the ankles. Plantar responses are equivocal versus flexor. His pupils seem to be reactive. He will not open his eyes enough to respond or to follow commands about any visual field testing. No obvious facial asymmetry. Neck appeared to be free when I did range of motion. LABORATORY DATA: He had an MRI brain and CT brain showing a suprasellar mass measuring 2.6 versus 1.7 cm without distinct enhancement. The bilateral basal ganglia lacunar, is old. Labs include moderate elevation of BUN and creatinine, 22 and 2.19 today. Sodium 134 today, glucose 100. Blood cultures drawn and pending. ASSESSMENT AND PLAN: Encephalopathy. Very poor historian and also does not provide a lot of information. A suprasellar mass. The headaches, dizziness and some visual complaints. The visual symptoms apparently have been present for months and may be from the suprasellar mass. The neurosurgeon is following him. I am going to check an INR and if in normal range, we will suggest a lumbar puncture for completeness of the evaluation. He is on antibiotics for possible sepsis and blood cultures are pending. It does not appear to be meningitis per se but a lumbar puncture will be of value in excluding this possibility. Thank you for asking us to assist in his care. Spencer Rodney MD OFC/TL , 03:47 PM , 04:18 PM
[2017-12-10 17:07] LABS: HEMOGLOBIN A1C 5.7 % (4.3-6.0)
[2017-12-10] MEDS ORDERED: ACETAMINOPHEN 650 MG SUPP RECTAL ONE (18:00)
[2017-12-10 18:09] LABS: AMORPHOUS SEDIMENT, URINE RARE; BACTERIA, URINE FEW /hpf; BILIRUBIN, URINE NEG (NEG); BLOOD, URINE MOD (NEG); GLUCOSE,URINE NEG (NEG); KETONE, URINE NEG (NEG); MUCUS URINE FEW /lpf (OCC); NITRITE,URINE NEG (NEG); PH, URINE 6.5 (5.0-8.5); SQUAMOUS EPITHELIAL CELL URINE <1 /hpf (0-5); URINE COLOR YELLOW (YELLW/STRAW); URINE LEUKOCYTE ESTERASE MOD (NEG)
[2017-12-10 19:16] LABS: INTERNATIONAL NORMALIZED RATIO 1.1 RATIO; PROTHROMBIN TIME - PATIENT 11.5 SEC (9.8-11.6)
[2017-12-11] VITALS (19 sets, daily range): BP systolic 143–165; BP diastolic 69–82; PULSE 90–109; RESP 18–24; TEMP 99.3–101.7; O2SAT 94–100
[2017-12-11] MEDS: ACETAMINOPHEN 650 MG SUPP RECTAL PRN (04:46)
[2017-12-11] MEDS: cloNIDine HCL 0.1 MG TAB PO SCH ×3 (04:52→21:18)
[2017-12-11] MEDS: PIPERACIL-TAZO 3.375 GM PREMIX 50 ML IV SCH ×3 (04:52→22:45)
[2017-12-11 07:39] LABS: AUTOMATED NEUTROPHIL # 5.5 TH/MM3 (1.8-7.7); BASOPHIL % 0.5 % (0.0-2.0); EOSINOPHIL # 0.1 TH/MM3 (0-0.4); EOSINOPHIL % 1.2 % (0.0-4.0); HEMATOCRIT 34.1 % (39.0-51.0); HEMOGLOBIN 11.5 GM/DL (13.0-17.0); LYMPH % 12.3 % (9.0-44.0); LYMPHOCYTE # 0.9 TH/MM3 (1.0-4.8); MEAN CELL VOLUME 83.9 FL (80.0-100.0); MEAN CORPUSCULAR HEMOGLOBIN 28.4 PG (27.0-34.0); MEAN CORPUSCULAR HGB CONC 33.8 % (32.0-36.0); MEAN PLATELET VOLUME 7.6 FL (7.0-11.0); MONO % 11.7 % (0.0-8.0); MONOCYTE # 0.9 TH/MM3 (0-0.9); NEUT % 74.3 % (16.0-70.0); PLATELET COUNT 217 TH/MM3 (150-450); RED BLOOD COUNT 4.06 MIL/MM3 (4.50-5.90); RED CELL DISTRIBUTION WIDTH 13.7 % (11.6-17.2); WHITE BLOOD COUNT 7.4 TH/MM3 (4.0-11.0)
[2017-12-11 07:58] LABS: ALBUMIN 3.1 GM/DL (3.4-5.0); AST (GOT) 93 U/L (15-37); BICARBONATE 27.3 MEQ/L (21.0-32.0); BLOOD UREA NITROGEN 25 MG/DL (7-18); CALCIUM 8.7 MG/DL (8.5-10.1); CHLORIDE 100 MEQ/L (98-107); CREATININE 2.39 MG/DL (0.60-1.30); GLOMERULAR FILTRATION RATE 32 ML/MIN (>89); GLUCOSE,RANDOM 108 MG/DL (74-106); MAGNESIUM 2.5 MG/DL (1.5-2.5); SODIUM (NA) 136 MEQ/L (136-145)
[2017-12-11 08:07] LABS: ALKALINE PHOSPHATASE 67 U/L (45-117); ALT (GPT) 40 U/L (12-78); FREE T4 1.03 NG/DL (0.76-1.46); LUTEINIZING HORMONE 2.2 mIU/mL (1.2-10.6); PHOSPHORUS 4.2 MG/DL (2.5-4.9); TOTAL BILIRUBIN ADULT 1.7 MG/DL (0.2-1.0); TOTAL PROTEIN 7.5 GM/DL (6.4-8.2)
[2017-12-11] MEDS ORDERED: SODIUM CHLORID 0.9% 500 ML INJ 500 ML IV ONE (08:30)
--- NOTE | 2017-12-11 09:05 | HHI.PR ---
Subjective Remarks awake but kept eyes closed during exam, complains of thirst oriented to person and place and year denies any headache , neck pain, ear ache Objective Vitals Vital Signs Date Time Temp Pulse Resp B/P (MAP) Pulse Ox O2 Delivery O2 Flow Rate FiO2 12/11/17 07:30 101.2 101 18 143/82 (102) 98 12/11/17 06:00 101 12/11/17 05:42 109 12/11/17 04:00 101.7 109 20 160/73 (102) 100 12/11/17 04:00 109 12/11/17 01:00 109 12/11/17 00:00 109 12/11/17 00:00 100.1 107 20 143/75 (97) 100 12/10/17 20:00 102 12/10/17 20:00 99.9 102 20 170/71 (104) 99 12/10/17 19:00 102 12/10/17 18:00 100 12/10/17 17:20 101.1 12/10/17 17:00 106 12/10/17 16:00 100 12/10/17 15:37 101.0 102 24 164/81 (108) 99 12/10/17 15:00 101.0 102 24 164/81 (108) 99 12/10/17 15:00 104 12/10/17 14:00 102 12/10/17 13:00 110 12/10/17 11:37 100.2 109 24 160/79 (106) 96 12/10/17 11:00 100 12/10/17 10:00 108 12/10/17 09:00 106 I/O 12/10/17 12/10/17 12/10/17 12/11/17 12/11/17 12/11/17 07:00 15:00 23:00 07:00 15:00 23:00 Intake Total 240 ml 670 ml 50 ml Output Total 200 ml Balance 240 ml 670 ml -150 ml Intake Oral 240 ml 620 ml 50 ml IV Total 50 ml Output Urine Total 200 ml # Voids 2 3 2 Result Diagram: 12/11/17 0651 12/11/17 0651 Imaging Last Impressions Head CT 12/10/17 0000 Signed Impressions: Service Date/Time: Sunday, December 10, 2017 12:58 - CONCLUSION: 1. Sellar/suprasellar mass which has been described on recent studies including MRI of the brain. 2. Stable cerebral atrophy and moderate periventricular/subcortical white matter small vessel ischemic changes bilaterally. 3. 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 4. No acute infarct, acute hemorrhage, midline shift or extra-axial bleed. Thien Elkins MD Chest X-Ray 12/10/17 0000 Signed Impressions: Service Date/Time: Sunday, December 10, 2017 13:30 - CONCLUSION: New parenchymal changes right base Bernardino Santo MD FACR Lower Extremity Ultrasound [id number]/08/171907 Signed Impressions: Service Date/Time: Friday, December 08, 2017 18:53 - CONCLUSION: Normal examination. Manuel Perez MD Brain MRI [id number]/08/171907 Signed Impressions: Service Date/Time: Friday, December 08, 2017 21:51 - CONCLUSION: 1. 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 This is of mixed signal intensity. No definite enhancement. 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 Followup study in 3 months recommended for stability. 2. Cerebral atrophy with old bilateral basal ganglia lacunar infarcts. 3. The Sean Rodriguez MD Objective Remarks oriented to place , person and year, responds appropraitely but kept eyes close most of the time speech soft but clear anicteric, pupils equally reactive very dry oral mucosa, + oral thrush neck supple, no resistance to flexion no rales or wheezes regular rhythm- occasional PACs abdomen soft, nontender extremities no edema neuro exam_ awake, oriented c 3, speech sfot but clear pupils equally reactive no facial asymmetry + gag moves all extremities spontaneously grossly no sensory deficit absent Babinski DTrs + A/P Assessment and Plan 77 male Sepsis with encephalopathy- multiple etiology Urinary tract Infection New Lung infiltrate possible aspiration r/o encephalitis - for stat LP with studies - ff Blood cultures - lactic acid protocol - ID consult. d/w Neurology - continue on zosyn Acute Kidney insury secondary to Sepsis and poor po -start IVF hypertensive urgency with headaches- requiring several doses of iv meds - on admission - monitor - prn Labetalol Oral thrush - Nystatin qid sellar mass with visual disturbance/ dizziness/ falls chronic anticoagulation on coumadin - INR 1.1 on admission - neurology ff ? History of arrhytmia- ? a fib vs SR with freq PACs On coumadin on med review- -get EKG now Speech for swallow evaluation appears to be pocketing food Teds/SCDs PT eval and treat in am- after work up/LP no chemical prophylaxis - plan for LP Prabhjot Armenta MD Dec 11, 2017 09:05
[2017-12-11] MEDS: DEXT 5%-NACL 0.9% 1000 ML INJ 1,000 ML IV SCH ×2 (10:00→21:20)
[2017-12-11] MEDS: SODIUM CHLORIDE 0.9% FLUSH 10 ML FLUSH IV FLUSH SCH ×2 (10:00→21:19)
--- NOTE | 2017-12-11 11:54 | RADRPT ---
EXAM DATE/TIME: 12/11/2017 11:03 [facility] COMPARISON: No previous studies available for comparison. INDICATIONS : Patient presents with altered mental status and fever in need of lumbar puncture to rule out meningi tis. MEDICAL HISTORY : HTN Chronic anticoagulation on coumadin stated for circulation for his foot-was started only 2 weeks ago by new pcp who he saw 2 weeks ago SURGICAL HISTORY : N/A ENCOUNTER: Initial ACUITY: 3 days PAIN SCORE: Non-responsive LOCATION: N/A LUMBAR PUNCTURE TIME: 10:58 hours FLUORO TIME: 0.3 minutes 0 ACCESS LEVEL: L3-4 OPENING PRESSURE: 24.5 cm of water CLOSING PRESSURE: Not requested. FLUID: 10 cc of clear CSF was collected and sent to the laboratory for analysis. PROCEDURE : 1. Fluoroscopic guided lumbar puncture. 2. Recording of opening pressure. The risks, benefits and alternatives to the procedure were explained and verbal and written consent w as obtained. The site was prepped in sterile fashion. Full sterile technique was used, including ca p, mask, sterile gloves and gown and a large sterile sheet. Hand hygiene and 2% chlorhexidine and/or betadine/alcohol prep was utilized per protocol for cutaneous antisepsis. The skin and subcutaneous tissues were infiltrated with local anesthetic solution. With fluoroscopic guidance the lumbar thecal sac was punctured at the above level described above and the opening pressure was recorded. The above described fluid was removed without difficulty. The patient tolerated the procedure well and there were no complications. CONCLUSION: Uncomplicated fluoroscopically guided lumbar puncture with pressures as above. Michael Eisenberg MD on December 11, 2017 at 11:51 Board Certified Radiologist. This report was verified electronically.
[2017-12-11 12:19] LABS: TOTAL PROTEIN,CSF 91.4 MG/DL (15.0-45.0)
[2017-12-11 12:41] LABS: RBC TUBE #1 46 /MM3; SUPERNATE COLOR TUBE #1 CLEAR (CLEAR); VOLUME TUBE # 1 2.1 ML; WBC TUBE #1 3 /MM3 (0-10)
[2017-12-11 12:42] LABS: CSF HISTIOCYTES 8 %; CSF LYMPHOCYTES 10 %; CSF NEUTROPHILS 82 %
[2017-12-11 12:43] LABS: CSF HISTIOCYTES 7 %; CSF LYMPHOCYTES 17 %; CSF NEUTROPHILS 76 %; RBC TUBE #4 31 /MM3; WBC TUBE #4 3 /MM3 (0-10)
--- NOTE | 2017-12-11 13:25 | HHI.PR ---
Subjective Remarks Patient is still unable to give a history. Per his he seems to be doing better. Per chart review is being suspected of encephalopathy due to sepsis with UTI and possible new lung infiltrate. Otherwise the rest of the endocrine work up is still pending. Objective Vital Signs Date Time Temp Pulse Resp B/P (MAP) Pulse Ox O2 Delivery O2 Flow Rate FiO2 12/11/17 12:05 99.3 100 20 157/69 (98) 100 12/11/17 08:00 101.2 101 18 143/82 (102) 98 12/11/17 07:30 101.2 101 18 143/82 (102) 98 12/11/17 07:00 100 12/11/17 06:00 101 12/11/17 05:42 109 12/11/17 04:00 101.7 109 20 160/73 (102) 100 12/11/17 04:00 109 12/11/17 01:00 109 12/11/17 00:00 109 12/11/17 00:00 100.1 107 20 143/75 (97) 100 12/10/17 20:00 102 12/10/17 20:00 99.9 102 20 170/71 (104) 99 12/10/17 19:00 102 12/10/17 18:00 100 12/10/17 17:20 101.1 12/10/17 17:00 106 12/10/17 16:00 100 12/10/17 15:37 101.0 102 24 164/81 (108) 99 12/10/17 15:00 101.0 102 24 164/81 (108) 99 12/10/17 15:00 104 12/10/17 14:00 102 I/O 12/10/17 12/10/17 12/10/17 12/11/17 12/11/17 12/11/17 07:00 15:00 23:00 07:00 15:00 23:00 Intake Total 240 ml 670 ml 50 ml 550 ml Output Total 200 ml Balance 240 ml 670 ml -150 ml 550 ml Intake Oral 240 ml 620 ml 50 ml IV Total 50 ml 550 ml Output Urine Total 200 ml # Voids 2 3 2 Result Diagram: 12/11/1751 12/11/17 0651 Objective Remarks Patient in bed sleeping with eyes closed. at bedside. Assessment and Plan Assessment and Plan Suprasellar Pituitary Mass Hyponatremia Abnormal BMP Mental status changes History of Headaches Currently he is being treated for encephalopathy due to infectious process. His TSH is slightly low but his Free T4 continues to be normal. Otherwise his Cortisol is in a normal range. Currently the rest of his labs are pending. I have discussed the pituitary findings with his today and the endocrine work up that is pending including the possibility of medical therapy may this nocturnist to be a functional adenoma. At this point will continue to wait for the rest of the results of his labs. Otherwise will follow. His electrolyte abnormalities have resolved. His cortisol is normal. Edmar Perez MD Dec 11, 2017 13:25
[2017-12-11] MEDS: GABAPENTIN 300 MG CAP PO SCH ×2 (14:19→21:18)
[2017-12-11] MEDS: NYSTATIN SUSP 500,000 U/5 ML CUP SWISH-SWAL SCH ×3 (14:19→21:18)
[2017-12-11] MEDS: DOXAZOSIN MESYLATE 2 MG TAB PO SCH (14:19)
[2017-12-11] MEDS: ACETAMINOPHEN 325 MG TAB PO PRN ×2 (14:20→21:18)
[2017-12-11 15:31] LABS: HEMOGLOBIN A1C 5.6 % (4.3-6.0)
--- NOTE | 2017-12-11 16:08 | HHI.NSPN ---
(Jeanie Llanes) Note Status Status: Progress Note (Jeanie Llanes) Status: Progress Note (Aleksander Machado MD) Interval History Interval History This is a 77 years old Black man who presented to the ER with the history of headaches and dizziness 2 days prior to admission His work up was significant for a suprasellar mass consistent with a macroadenoma. He is currently unable to provide a good history and in fact is only able to open his eyes but not able to answer questions. A sepsis alert was just released on him. He was also found to have high blood pressure a hypertensive urgency. 12/10: continues to appear lethargic, opens eyes and follows intermittent only few simple commands then falls back asleep. 12/11: s/p LP, currently flat in bed following procedure. repeat CT Brain yesterday with stable findings. (Jeanie Llanes) Diagnosis Sepsis Interval History This is a 77 years old Black man who presented to the ER with the history of headaches and dizziness 2 days prior to admission His work up was significant for a suprasellar mass consistent with a macroadenoma. He is currently unable to provide a good history and in fact is only able to open his eyes but not able to answer questions. A sepsis alert was just released on him. He was also found to have high blood pressure a hypertensive urgency. 12/10: continues to appear lethargic, opens eyes and follows intermittent only few simple commands then falls back asleep. 12/11: s/p LP, currently flat in bed following procedure. repeat CT Brain yesterday with stable findings. (Aleksander Machado MD) Labs, Micro, & Vital Signs Results Date Time Temp Pulse Resp B/P (MAP) Pulse Ox O2 Delivery O2 Flow Rate FiO2 12/11/17 12:05 99.3 100 20 157/69 (98) 100 12/11/17 08:00 101.2 101 18 143/82 (102) 98 12/11/17 07:30 101.2 101 18 143/82 (102) 98 12/11/17 07:00 100 12/11/17 06:00 101 12/11/17 05:42 109 12/11/17 04:00 101.7 109 20 160/73 (102) 100 12/11/17 04:00 109 12/11/17 01:00 109 12/11/17 00:00 109 12/11/17 00:00 100.1 107 20 143/75 (97) 100 12/10/17 20:00 102 12/10/17 20:00 99.9 102 20 170/71 (104) 99 12/10/17 19:00 102 12/10/17 18:00 100 12/10/17 17:20 101.1 12/10/17 17:00 106 12/12/17 07:00 Intake Total 550 ml Balance 550 ml Constitutional Vital Signs Date Time Temp Pulse Resp B/P (MAP) Pulse Ox O2 Delivery O2 Flow Rate FiO2 12/11/17 12:05 99.3 100 20 157/69 (98) 100 12/11/17 08:00 101.2 101 18 143/82 (102) 98 12/11/17 07:30 101.2 101 18 143/82 (102) 98 12/11/17 07:00 100 12/11/17 06:00 101 12/11/17 05:42 109 12/11/17 04:00 101.7 109 20 160/73 (102) 100 12/11/17 04:00 109 12/11/17 01:00 109 12/11/17 00:00 109 12/11/17 00:00 100.1 107 20 143/75 (97) 100 12/10/17 20:00 102 12/10/17 20:00 99.9 102 20 170/71 (104) 99 12/10/17 19:00 102 12/10/17 18:00 100 12/10/17 17:20 101.1 12/10/17 17:00 106 12/12/17 07:00 Intake Total 550 ml Balance 550 ml (Jeanie Llanes) Physical Exam Mr. Molina is an elderly -[place] male. HEENT: Normocephalic, nonicteric sclera Neuro: lethargic, drowsy, only says few words, not really answering questions nor consistently following commands. Cranial nerve examination: pupils equal, round. Facial motor function appears symmetrical at rest. Right ptosis. Face sensation, hearing, visual thacker, and olfaction can not be assessed properly due to the patients condition. Neck is soft and supple. Motor: raised his arms above the bed to command, withdrew his legs to pain stimuli. Otherwise exam limited due to his clinical condition Cerebellar examination is limited due to the patient condition, but no obvious deficits are noted. Heart: Regular rate rhythm Lungs: Clear no wheezes (Jeanie Llanes) Mr. Molina is an elderly -[place] male in no acute distress. HEENT: Normocephalic, nonicteric sclera Neuro: lethargic, drowsy, only says few words, not really answering questions nor consistently following commands. Cranial nerve examination: pupils equal, round. Facial motor function appears symmetrical at rest. Right ptosis. Face sensation, hearing, visual thacker, and olfaction can not be assessed properly due to the patients condition. Neck is soft and supple. Motor: raised his arms above the bed to command, withdrew his legs to pain stimuli. Otherwise exam limited due to his clinical condition Cerebellar examination is limited due to the patient condition, but no obvious deficits are noted. Heart: Regular rate rhythm Lungs: Clear no wheezes (Aleksander Machado MD) Medications Current Medications Current Medications Medications (Trade) Dose Ordered Sig/Karli Route PRN Reason Start Time Stop Time Status Last Admin Dose Admin Sodium Chloride (NS Flush) 2 ml UNSCH PRN IV FLUSH FLUSH AFTER USING IV ACCESS 12/08/17 15:45 Sodium Chloride (NS Flush) 2 ml BID IV FLUSH 12/08/17 21:00 12/11/17 10:00 Amlodipine Besylate (Norvasc) 10 mg DAILY PO 12/09/17 09:00 12/11/17 14:19 Gabapentin (Neurontin) 300 mg BID PO 12/08/17 21:00 12/11/17 14:19 Hydralazine HCl (Apresoline Inj) 10 mg Q30M PRN IV PUSH bp>160/70 12/08/17 20:45 12/09/17 18:29 Acetaminophen (Tylenol) 650 mg Q6HR PRN PO headache/fever/pain1-4 12/09/17 15:15 12/11/17 14:20 Doxazosin Mesylate (Cardura) 2 mg DAILY PO 12/10/17 09:00 12/11/17 14:19 Clonidine (Catapres) 0.1 mg Q8HR PO 12/09/17 16:15 12/11/17 14:20 Labetalol HCl (Trandate Inj) 10 mg Q6H PRN IV PUSH SYS BP GREATER THAN 170 MMHG 12/09/17 16:15 12/10/17 05:22 Acetaminophen (Tylenol Supp) 650 mg Q6H PRN RECTAL fever 12/10/17 04:45 12/11/17 04:46 Clonidine (Catapres-Tts 0.1mg Patch.7d) 1 patch Q7D T-DERMAL 12/10/17 13:00 12/10/17 12:38 Morphine Sulfate (Morphine Inj) 2 mg Q3H PRN IV PUSH Pain 3-5; if unable to take PO 12/10/17 11:45 Morphine Sulfate (Morphine Inj) 4 mg Q3H PRN IV PUSH Pain 6-10;if unable to take PO 12/10/17 11:45 Morphine Sulfate (Morphine Inj) 4 mg Q3H PRN IV PUSH BREAKTHROUGH PAIN 12/10/17 11:45 Naloxone HCl (Narcan Inj) 0.4 mg UNSCH PRN IV PUSH SEE LABEL COMMENTS 12/10/17 11:45 Miscellaneous Information 1 Q7D T-DERMAL 12/17/17 13:00 Piperacillin Sod/ Tazobactam Sod 50 ml @ 100 mls/hr Q8H IV 12/10/17 14:00 12/11/17 14:20 Dextrose/Sodium Chloride 1,000 ml @ 100 mls/hr Q10H IV 12/11/17 08:30 12/11/17 10:00 Nystatin (Mycostatin Liq) 5 ml QID SWISH-SWAL 12/11/17 13:00 12/11/17 14:19 (Jeaine Llanes) Current Medications Current Medications Sodium Chloride (NS Flush) 2 ml UNSCH PRN IV FLUSH FLUSH AFTER USING IV ACCESS ; Start 12/08/17 at 15:45 Sodium Chloride (NS Flush) 2 ml BID IV FLUSH Last administered on 12/13/17at 09: 21; Start 12/08/17 at 21:00 Naloxone HCl (Narcan Inj) 0.4 mg UNSCH PRN IV PUSH SEE LABEL COMMENTS; Start at 15:45; Stop 12/10/17 at 13:16; Status DC Amlodipine Besylate (Norvasc) 10 mg DAILY PO Last administered on 12/13/17at 09: 21; Start 12/09/17 at 09:00 Clonidine (Catapres) 0.1 mg HS PO Last administered on 12/08/17at 21:04; Start at 21:00; Stop 12/09/17 at 16:09; Status DC Gabapentin (Neurontin) 300 mg BID PO Last administered on 12/13/17at 09:21; Start 12/08/17 at 21:00 Hydralazine HCl (Apresoline Inj) 10 mg Q30M PRN IV PUSH bp>160/70 Last administered on 12/09/17at 18:29; Start 12/08/17 at 20:45 Labetalol HCl (Trandate Inj) 20 mg ONCE ONCE IV PUSH Last administered on at 22:49; Start 12/08/17 at 22:00; Stop 12/08/17 at 22:01; Status DC Gadodiamide (Omniscan Pf Inj) 16 ml STK-MED ONCE IVCONTRAST Last administered on 12/08/17at 22:30; Start 12/08/17 at 18:35; Stop 12/08/17 at 22:18; Status DC Acetaminophen (Tylenol) 650 mg Q6HR PRN PO headache/fever/pain1-4 Last administered on 12/13/17at 03:23; Start 12/09/17 at 15:15 Doxazosin Mesylate (Cardura) 2 mg DAILY PO Last administered on 12/13/17at 09:21 ; Start 12/10/17 at 09:00 Doxazosin Mesylate (Cardura) 2 mg ONCE ONCE PO Last administered on 12/09/17at 17:02; Start 12/09/17 at 16:15; Stop 12/09/17 at 16:16; Status DC Clonidine (Catapres) 0.1 mg Q8HR PO ; Start 12/09/17 at 22:00; Stop 12/09/17 at 22:00; Status DC Clonidine (Catapres) 0.1 mg Q8HR PO Last administered on 12/12/17at 14:37; Start 12/09/17 at 16:15; Stop 12/12/17 at 15:46; Status DC Labetalol HCl (Trandate Inj) 10 mg Q6H PRN IV PUSH SYS BP GREATER THAN 170 MMHG Last administered on 12/10/17at 05:22; Start 12/09/17 at 16:15 Acetaminophen 100 ml @ 400 mls/hr ONCE ONCE IV Last administered on at 21:39; Start 12/09/17 at 21:30; Stop 12/09/17 at 21:44; Status DC Acetaminophen (Tylenol Supp) 650 mg Q6H PRN RECTAL fever Last administered on at 01:32; Start 12/10/17 at 04:45 Clonidine (Catapres-Tts 0.1mg Patch.7d) 1 patch Q7D T-DERMAL Last administered on 12/10/17at 12:38; Start 12/10/17 at 13:00; Stop 12/12/17 at 15:47; Status DC Morphine Sulfate (Morphine Inj) 2 mg Q3H PRN IV PUSH Pain 3-5; if unable to take PO; Start 12/10/17 at 11:45; Status Cancel Morphine Sulfate (Morphine Inj) 4 mg Q3H PRN IV PUSH Pain 6-10;if unable to take PO; Start 12/10/17 at 11:45; Status Cancel Morphine Sulfate (Morphine Inj) 4 mg Q3H PRN IV PUSH BREAKTHROUGH PAIN; Start 12/10/17 at 11:45; Status Cancel Naloxone HCl (Narcan Inj) 0.4 mg UNSCH PRN IV PUSH SEE LABEL COMMENTS; Start at 11:45; Status Cancel Miscellaneous Information 1 Q7D T-DERMAL ; Start 12/17/17 at 13:00; Status Cancel Piperacillin Sod/ Tazobactam Sod 50 ml @ 100 mls/hr Q8H IV Last administered on 12/13/17at 13:09; Start 12/10/17 at 14:00 Acetaminophen (Tylenol Supp) 650 mg NOW ONCE RECTAL Last administered on at 18:04; Start 12/10/17 at 18:00; Stop 12/10/17 at 18:01; Status DC Dextrose/Sodium Chloride 1,000 ml @ 50 mls/hr Q20H IV Last administered on at 13:11; Start 12/11/17 at 08:30 Sodium Chloride 500 ml @ 500 mls/hr BOLUS ONCE IV Last administered on at 08:30; Start 12/11/17 at 08:30; Stop 12/11/17 at 09:29; Status DC Nystatin (Mycostatin Liq) 5 ml QID SWISH-SWAL Last administered on 12/13/17at 13:09; Start 12/11/17 at 13:00 Metoprolol Tartrate (Lopressor) 25 mg Q8H PO Last administered on 12/13/17at 09: 21; Start 12/12/17 at 16:00 Clonidine (Catapres) 0.1 mg Q6H PRN PO SBP>160, DBP>90; Start 12/12/17 at 15:45 (Aleksander Machado MD) Medical Decision Making MDM Remarks 77-year-old male who presented with headaches, altered mental status MRI showed pituitary macroadenoma Toxic Metabolic Encephalopathy due to multifactorial- Sepsis, UTI, aspiration pneumonia (Jeanie Llanes) Plan Plan Remarks continue nonsurgical management of pituitary macroadenoma Evaluation with ophthalmology and endocrinology LP cultures pending ID consulted (Jeanie Llanes) Attending Statement Assessment 77-year-old male who presented with headaches, altered mental status MRI showed pituitary macroadenoma Toxic Metabolic Encephalopathy due to multifactorial- Sepsis, UTI, aspiration pneumonia Fever and abnormal urinalysis in a patient presenting with headache and dizziness. His lumbar puncture revealing 3 white cells and normal glucose with elevated protein. Initial cultures negative known pituitary massconsistent with a pituitary adenoma. Continue nonoperative management. Endocrinological workup in progress Pneumonia based on abnormal chest x-ray with parenchymal changes at the right base. Possibly this could be from aspiration pneumonia. Acute renal disease careful fluid hydration, monitor BUN and creatinine ID Continue piperacillin/tazobactam. Repeat the urine culture since the current culture just shows mixed organisms. s continue nonsurgical management of pituitary macroadenoma Evaluation with ophthalmology pending Continue Protonix for stress ulcer prophylaxis HANNY hose and SCDs for DVT prophylaxis The exam, history, and the medical decision-making described in the above note were completed with the assistance of the mid-level provider. I reviewed and agree with the findings presented. I attest that I had a [id number] encounter with the patient on the same day, and personally performed and documented my assessment and findings in the medical record. (Aleksander Machado MD) Jeanie lLanes Dec 11, 2017 16:08 Aleksander Machado MD Dec 13, 2017 13:35
--- NOTE | 2017-12-11 16:47 | MB ---
cc: Ghulam Ascnecio MD DATE: 12/11/2017 REQUESTING PHYSICIAN: Dr. Armenta REASON: High fever. Change in mental status. Sellar mass. Urinary tract infection/pneumonia. Questionable encephalitis. HISTORY OF PRESENT ILLNESS: This is a 77-year-old white male who was admitted to the hospital after he presented with altered mental status. The patient's notes that he was having difficulty with ambulation and he fell at home. He was initially brought to [facility] ED and then over to [facility]. He was evaluated on 12/08/2017. The patient apparently was having headache and dizziness for 2 days. When he first arrived, he was noted to be closing his eyes during the interview and that he was a poor historian. He also was noted to have a high systolic blood pressure. The patient is a poor historian and therefore I cannot get adequate information from him. His is in the room and she was able to give me information regarding his recent physical and clinical condition. She notes that he had complained of headaches off and on, but that he had at most sustained headaches for a couple days before admission and that he was starting to develop dizziness. She also reports that he was having frequent urination, although he wears a diaper. On admission, he had temperature of 102.3 degrees. His white count was normal. Urinalysis revealed 66 white cells and 32 red cells. He also has acute renal failure based on laboratory information on admission. His heart rate was 91 when he presented and the lactic acid level was 1.2. Urine culture was obtained and it shows 50,000 to 100,000 colonies of mixed gram-positive mathew. Blood cultures obtained on 12/10/[address] scan of the brain was performed on 12/08/2017 and it showed suprasellar/sellar mass measuring 2.1 x 1.7 cm, likely related to a microadenoma. Cerebral atrophy with old bilateral basal ganglia lacunar infarct was noted. Lumbar puncture was performed today. The CSF reveals 3 white cells, 46 red cells, 82% neutrophils, 10% lymphocytes. Total protein was 91 and CSF glucose 61. Gram's stain showed a few white cells and no organisms. CSF culture and HSV and other studies are pending. Chest x-ray shows new parenchymal changes at the right base. Chest x-ray from 12/08/2017 showed no focal consolidation or effusion. The patient's tells me that she did not notice any problems with agitated behavior or unusual social behavior in the patient before he was brought to the emergency department. She states that he is usually alert and that he keeps up with the news and watches television without difficulty. She does not recall him having any complaints of vision. He was felt to have hypertensive urgency and has been treated for that. The patient was noted to have much difficulty awakening including this morning before he went for the lumbar puncture. When I evaluated him, he was attempting to answer my questions and seemed appropriate with his short answers. He is waking up to me and answering my questions appropriately. He keeps his right eye closed. His notes that he has been doing so since he had a fall and was mostly doing so for convenience. When I asked him to open his eyes, I finally was able to get it open with my fingers and he tells me that his vision in the right eye was okay. He denies pain. He states that he has a slight headache, approximately 2/10 scale currently. He has had no nausea or vomiting and no shortness of breath. His notes that when he would walk, he would have some difficulty because he has calluses at the bottoms of his feet, which cause him to walk slowly, but he has had no problems with his gait otherwise. The notes that he did not have any trouble with fevers, but that he was having episodes of sweating in the days prior to admission. PAST MEDICAL HISTORY: Unremarkable per the patient's . Hypertension. Noted to be on chronic anticoagulation which reportedly started within the recent weeks. ALLERGIES: No known drug allergies. MEDICATIONS: 1. Nystatin swish and swallow. 2. Piperacillin/tazobactam. 3. Clonidine patch. 4. Cardura. 5. Tylenol. 6. Norvasc. 7. Neurontin. SOCIAL HISTORY: The patient was born in [place]. Positive tobacco use, 1 pack a day. No alcohol. No illicit drugs. The patient is . FAMILY HISTORY: Noncontributory. REVIEW OF SYSTEMS: Difficult to obtain. The patient awakens but does not stay fully alert for a significant length of time. PHYSICAL EXAMINATION: GENERAL: This is a slender, well-developed male in no acute distress. He awakens easily, but does not remain fully awake on arousal. However, he does answer my questions appropriately when awakened. He is in no acute distress. The patient is oriented to person and place, but not oriented to time. VITAL SIGNS: Temperature 99.3, BP 157/69, respirations 20, heart rate 100. HEENT: The head reveals mild ecchymosis at the superior orbital region at the right frontal aspect of the head and also at the area below the right orbit. Extraocular movements appear grossly intact. Pupils reactive to light. No icterus. Oropharynx : Positive thrush. No other lesions. The mucosa is slightly dry. NECK: Supple without adenopathy or swelling. LUNGS: Decreased breath sounds throughout. HEART: Regular S1, S2, without murmurs, rubs or gallops. ABDOMEN: Bowel sounds diminished but present. Soft, no tenderness appreciated. RECTAL: Not performed. EXTREMITIES: No clubbing, no cyanosis, no edema. The patient has dry skin of the lower extremities. He has several calluses at the plantar aspect of the foot. On the left side, he has one lateral at the base of the fifth toe and then there is one at the base of the great toe and on the right side he also has one at the base of the great toe and these at the plantar aspect. SKIN: No diffuse rash. NEUROLOGIC: No gross focal finding. The patient responds appropriately. [id number] is intact. He moves all extremities. Decreased strength in all extremities. PSYCHIATRIC: The patient is calm and cooperative. LABORATORY DATA: WBC 7.4, platelets 217, 74% neutrophils, hemoglobin 11.5. Creatinine 2.39, BUN 25, sodium 136, estimated GFR 32, AST 93, ALT 40, alkaline phosphatase 67. IMPRESSION: 1. Fever and abnormal urinalysis in a patient presenting with headache and dizziness. 2. Lumbar puncture revealing 3 white cells and normal glucose with elevated protein. 3. Abnormality on MRI. The patient with known pituitary mass. This is felt to be a pituitary adenoma. 4. Pneumonia based on abnormal chest x-ray with parenchymal changes at the right base. However, the patient does not appear to be coughing or producing sputum and possibly this could be from aspiration. 5. Acute renal disease based on chemistry studies. It appears that changes in the spinal fluid may not reflect infection. However, we should continue to monitor the Gram's stain and culture from the CSF. RECOMMENDATIONS: 1. Continue piperacillin/tazobactam. 2. Repeat the urine culture since the current culture just shows mixed organisms. 3. Monitor temperature. 4. Monitor clinical status. 5. Monitor the chest x-ray periodically. 6. Continue to monitor the patient's clinical response. From my evaluation, it appears that he is more awake than previously and possibly could be responding to the current treatment with antibiotics for infection. Thank you for this consultation. I will monitor the patient's progress with you. I have discussed the plans with the patient's at bedside. MD LOULOU Michaud/OTF , 02:06 PM , 04:46 PM
--- NOTE | 2017-12-11 18:26 | HHI.PR ---
Review/Management Daily Summary 12/[address] Kathi arthuris am spoke to his this evening spoke to RN CSF just reviewed, essentially negative sepsis management, call neuro prn Subjective Subjective Comments LP done Active Medications Current Medications Medications (Trade) Dose Ordered Sig/Karli Route Start Time Stop Time Status Last Admin (NS Flush) 2 ml UNSCH PRN IV FLUSH 12/08/17 15:45 (NS Flush) 2 ml BID IV FLUSH 12/08/17 21:00 12/11/17 10:00 (Norvasc) 10 mg DAILY PO 12/09/17 09:00 12/11/17 14:19 (Neurontin) 300 mg BID PO 12/08/17 21:00 12/11/17 14:19 (Apresoline Inj) 10 mg Q30M PRN IV PUSH 12/08/17 20:45 12/09/17 18:29 (Tylenol) 650 mg Q6HR PRN PO 12/09/17 15:15 12/11/17 14:20 (Cardura) 2 mg DAILY PO 12/10/17 09:00 12/11/17 14:19 (Catapres) 0.1 mg Q8HR PO 12/09/17 16:15 12/11/17 14:20 (Trandate Inj) 10 mg Q6H PRN IV PUSH 12/09/17 16:15 12/10/17 05:22 (Tylenol Supp) 650 mg Q6H PRN RECTAL 12/10/17 04:45 12/11/17 04:46 (Catapres-Tts 0.1mg Patch.7d) 1 patch Q7D T-DERMAL 12/10/17 13:00 12/10/17 12:38 (Morphine Inj) 2 mg Q3H PRN IV PUSH 12/10/17 11:45 (Morphine Inj) 4 mg Q3H PRN IV PUSH 12/10/17 11:45 (Morphine Inj) 4 mg Q3H PRN IV PUSH 12/10/17 11:45 (Narcan Inj) 0.4 mg UNSCH PRN IV PUSH 12/10/17 11:45 Miscellaneous Information 1 Q7D T-DERMAL 12/17/17 13:00 Piperacillin Sod/ Tazobactam Sod 50 ml @ 100 mls/hr Q8H IV 4/11/18 14:00 12/11/17 14:20 Dextrose/Sodium Chloride 1,000 ml @ 100 mls/hr Q10H IV 12/11/17 08:30 12/11/17 10:00 (Mycostatin Liq) 5 ml QID SWISH-SWAL 12/11/17 13:00 12/11/17 18:18 Allergies Allergies Coded Allergies No Known Allergies (Unverified12/08/17) Exam I&O / VS 12/11/17 12/11/17 12/12/17 15:00 23:00 07:00 Intake Total 550 ml Balance 550 ml IV Total 550 ml Vital Signs Date Time Temp Pulse Resp B/P (MAP) Pulse Ox O2 Delivery O2 Flow Rate FiO2 12/11/17 12:05 99.3 100 20 157/69 (98) 100 12/11/17 08:00 101.2 101 18 143/82 (102) 98 12/11/17 07:30 101.2 101 18 143/82 (102) 98 12/11/17 07:00 100 12/11/17 06:00 101 12/11/17 05:42 109 12/11/17 04:00 101.7 109 20 160/73 (102) 100 12/11/17 04:00 109 12/11/17 01:00 109 12/11/17 00:00 109 12/11/17 00:00 100.1 107 20 143/75 (97) 100 12/10/17 20:00 102 12/10/17 20:00 99.9 102 20 170/71 (104) 99 12/10/17 19:00 102 Objective Micro and Labs Laboratory Tests Test 12/10/17 18:30 12/11/17 06:51 12/11/17 08:25 12/11/17 09:30 Prothrombin Time 11.5 Prothromb Time International Ratio 1.1 Activated Partial Thromboplast Time 24.7 White Blood Count 7.4 Red Blood Count 4.06 Hemoglobin 11.5 Hematocrit 34.1 Mean Corpuscular Volume 83.9 Mean Corpuscular Hemoglobin 28.4 Mean Corpuscular Hemoglobin Concent 33.8 Red Cell Distribution Width 13.7 Platelet Count 217 Mean Platelet Volume 7.6 Neutrophils (%) (Auto) 74.3 Lymphocytes (%) (Auto) 12.3 Monocytes (%) (Auto) 11.7 Eosinophils (%) (Auto) 1.2 Basophils (%) (Auto) 0.5 Neutrophils # (Auto) 5.5 Lymphocytes # (Auto) 0.9 Monocytes # (Auto) 0.9 Eosinophils # (Auto) 0.1 Basophils # (Auto) 0.0 CBC Comment DIFF FINAL Differential Comment Blood Urea Nitrogen 25 Creatinine 2.39 Random Glucose 108 Total Protein 7.5 Albumin 3.1 Calcium Level 8.7 Phosphorus Level 4.2 Magnesium Level 2.5 Alkaline Phosphatase 67 Aspartate Amino Transf (AST/SGOT) 93 Alanine Aminotransferase (ALT/SGPT) 40 Total Bilirubin 1.7 Sodium Level 136 Potassium Level 4.2 Chloride Level 100 Carbon Dioxide Level 27.3 Anion Gap 9 Estimat Glomerular Filtration Rate 32 Hemoglobin A1c 5.6 Free Thyroxine 1.03 Thyroid Stimulating Hormone 3rd Gen 0.249 Follicle Stimulating Hormone 4.3 Luteinizing Hormone 2.2 Random Cortisol 15.6 Blood Gas Puncture Site RT RADIAL Blood Gas Patient Temperature 98.6 Blood Gas HCO3 25 Blood Gas Base Excess 1.6 Blood Gas Oxygen Saturation 94 Arterial Blood pH 7.45 Arterial Blood Partial Pressure CO2 37 Arterial Blood Partial Pressure O2 86 Arterial Blood Oxygen Content 15.2 Arterial Blood Carboxyhemoglobin 1.0 Arterial Blood Methemoglobin 1.3 Blood Gas Hemoglobin 11.4 Oxygen Delivery Device NASAL CANNULA Blood Gas Liter Flow 2 Lactic Acid Level 1.2 Test 12/11/17 10:58 CSF Volume (Tube 1) 2.1 CSF Supernatant Color (tube 1) CLEAR CSF Gross Blood (Tube 1) TRACE CSF WBC (Tube 1) 3 CSF RBC (Tube 1) 46 CSF Volume (Tube 2) 2.0 CSF Supernatant Color (tube 2) CLEAR CSF Gross Blood (Tube 2) TRACE CSF Volume (Tube 3) 2.4 CSF Supernatant Color (tube 3) CLEAR CSF Gross Blood (Tube 3) TRACE CSF Volume (Tube 4) 3.1 CSF Supernatant Color (tube 4) CLEAR CSF Gross Blood (Tube 4) TRACE CSF WBC (Tube 4) 3 CSF RBC (Tube 4) 31 CSF Neutrophils 76 CSF Lymphocytes 17 CSF Histiocytes 7 CSF Glucose 61 CSF Lactate Dehydrogenase 27 CSF Lactic Acid 2.2 CSF Total Protein 91.4 Date/Time Source Procedure Growth Status 12/10/17 14:40 Blood Peripheral Aerobic Blood Culture - Preliminary NO GROWTH IN 1 DAY Resulted 12/10/17 14:40 Blood Peripheral Anaerobic Blood Culture - Preliminary NO GROWTH IN 1 DAY Resulted 12/11/17 10:58 Cerebral Spinal Fluid Lumbar Puncture Fungal Smear - Final NO FUNGAL ELEMENTS SEEN. Resulted 12/11/17 10:58 Cerebral Spinal Fluid Lumbar Puncture Fungal Culture Pending Resulted 12/10/17 15:00 Urine Clean Catch Urine Culture - Final 50-100,000 CFU/ML MIXED GRAM POSITIVE... Complete Spencer Rodney MD Dec 11, 2017 18:26
--- NOTE | 2017-12-11 18:42 | EKG ---
Date Performed: 12/11/2017 Time Performed: 09:24:46 PTAGE: 77 years EKG: Sinus rhythm with PAC(s) Possible left ventricular hypertrophy Anterolateral ST-T changes may be due to hypertrop hy and/or ischemia Abnormal ECG NO PREVIOUS TRACING DOCTOR: Johnson Mo Interpretating Date/Time 12/11/2017 18:41:07
[2017-12-12] VITALS (23 sets, daily range): BP systolic 133–170; BP diastolic 65–78; PULSE 81–106; RESP 20–24; TEMP 98.5–102; O2SAT 97–99
[2017-12-12] MEDS: ACETAMINOPHEN 650 MG SUPP RECTAL PRN (01:32)
[2017-12-12 05:08] LABS: BICARBONATE 28.4 MEQ/L (21.0-32.0); CREATININE 1.99 MG/DL (0.60-1.30)
[2017-12-12] MEDS: cloNIDine HCL 0.1 MG TAB PO SCH ×2 (05:17→14:37)
[2017-12-12] MEDS: PIPERACIL-TAZO 3.375 GM PREMIX 50 ML IV SCH ×3 (05:17→21:47)
[2017-12-12] MEDS: SODIUM CHLORIDE 0.9% FLUSH 10 ML FLUSH IV FLUSH SCH ×2 (09:00→20:31)
[2017-12-12 09:50] LABS: HSV 1,PCR Negative (Negative)
[2017-12-12] MEDS: NYSTATIN SUSP 500,000 U/5 ML CUP SWISH-SWAL SCH ×4 (10:29→20:22)
[2017-12-12] MEDS: DOXAZOSIN MESYLATE 2 MG TAB PO SCH (10:29)
[2017-12-12] MEDS: GABAPENTIN 300 MG CAP PO SCH ×2 (10:29→20:22)
--- NOTE | 2017-12-12 15:38 | HHI.PR ---
Subjective Remarks patient is more awake and alert, oriented c 2- interactive and spontaneous in speech ate well for lunch moves ced xtremities and ff all commands T max 102 this MN Objective Vitals Vital Signs Date Time Temp Pulse Resp B/P (MAP) Pulse Ox O2 Delivery O2 Flow Rate FiO2 12/12/17 13:00 99 12/12/17 12:00 99.5 95 20 170/69 (102) 99 12/12/17 12:00 106 12/12/17 11:00 98 12/12/17 10:00 100 12/12/17 09:00 102 12/12/17 08:00 98.5 96 20 151/67 (95) 98 12/12/17 05:14 99.9 94 22 158/78 (104) 99 12/12/17 04:07 90 12/12/17 02:58 99.5 12/12/17 00:22 102.0 96 24 142/65 (90) 98 12/11/17 21:29 101.6 109 22 165/70 (101) 94 12/11/17 20:10 103 12/11/17 16:00 90 12/11/17 16:00 100.9 104 24 163/76 (105) 100 I/O 12/11/17 12/11/17 12/11/17 12/12/17 12/12/17 12/12/17 07:00 15:00 23:00 07:00 15:00 23:00 Intake Total 50 ml 550 ml 1240 ml 290 ml Output Total 200 ml 550 ml 400 ml Balance -150 ml 550 ml 690 ml -110 ml Intake Oral 50 ml 240 ml 240 ml IV Total 550 ml 1000 ml 50 ml Output Urine Total 200 ml 550 ml 400 ml # Voids 2 Result Diagram: 12/11/17 0651 12/12/17 0344 Imaging Last Impressions Lumbar Puncture Fluoroscopy 12/11/17 0000 Signed Impressions: Service Date/Time: November 11:03 - CONCLUSION: Uncomplicated fluoroscopically guided lumbar puncture with pressures as above. Michael Eisenberg MD Head CT 12/10/17 0000 Signed Impressions: Service Date/Time: Sunday, December 10, 2017 12:58 - CONCLUSION: 1. Sellar/suprasellar mass which has been described on recent studies including MRI of the brain. 2. Stable cerebral atrophy and moderate periventricular/subcortical white matter small vessel ischemic changes bilaterally. 3. 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 4. No acute infarct, acute hemorrhage, midline shift or extra-axial bleed. Thien Elkins MD Chest X-Ray 12/10/17 0000 Signed Impressions: Service Date/Time: Sunday, December 10, 2017 13:30 - CONCLUSION: New parenchymal changes right base Bernardino Santo MD FACR Lower Extremity Ultrasound [id number]/08/171907 Signed Impressions: Service Date/Time: Friday, December 08, 2017 18:53 - CONCLUSION: Normal examination. Manuel Perez MD Brain MRI [id number]/08/171907 Signed Impressions: Service Date/Time: Friday, December 08, 2017 21:51 - CONCLUSION: 1. 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 This is of mixed signal intensity. No definite enhancement. 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 Followup study in 3 months recommended for stability. 2. Cerebral atrophy with old bilateral basal ganglia lacunar infarcts. 3. The Sean Rodriguez MD Objective Remarks oriented to place , person and year, responds appropraitely but kept eyes close most of the time speech soft but clear anicteric, pupils equally reactive very dry oral mucosa, + oral thrush neck supple, no resistance to flexion no rales or wheezes regular rhythm- occasional PACs abdomen soft, nontender extremities no edema neuro exam_ awake, oriented c 3, speech sfot but clear pupils equally reactive no facial asymmetry + gag moves all extremities spontaneously grossly no sensory deficit absent Babinski DTrs + Procedures 12/11- LP A/P Assessment and Plan 77 male Sepsis with encephalopathy- multiple etiology Urinary tract Infection- Pyuria New Lung infiltrate possible aspiration - S/P LP with studies- unremarkable , negative gram stain, pending final culture - ff Blood cultures- negative so far - urine culture - no growth-- repeat UA in am - lactic acid protocol - ID ff - continue on zosyn Acute Kidney insury secondary to Sepsis and poor po -renal function improving- non oliguric --decrease IVF rate - needs to be fed hypertensive urgency with headaches- requiring several doses of iv meds - on admission - start on Lopressor 25 mg po q 8 - continue on Amlodipine - change Clondiine to prn Oral thrush - Nystatin qid sellar mass with visual disturbance/ dizziness/ falls chronic anticoagulation on coumadin - INR 1.1 on admission - neurology ff History of arrhytmia- ? a fib vs SR with freq PACs On coumadin on med review- -get EKG now Speech for swallow evaluation appears to be pocketing food Teds/SCDs PT eval and treat no chemical prophylaxis - S/p LP CM DC planning- will need skilled Prabhjot Armenta MD Dec 12, 2017 15:38
[2017-12-12] MEDS: METOPROLOL TARTRATE 25 MG TAB PO SCH (15:50)
--- NOTE | 2017-12-12 20:09 | HHI.IDPN ---
Note Infectious Disease Note Patient is laying in bed. Wakes up and answers my questions with very short answers. He is somnolent. Temperature is improved throughout today. T-max of 102 early this morning. He denies headache. Presented with altered mental status. The patient's notes that he was having difficulty with ambulation and he fell at home. He was initially brought to [facility] ED and then over to [facility]. He was evaluated on 12/08/2017. The patient apparently was having headache and dizziness for 2 days. When he first arrived, he was noted to be closing his eyes during the interview and that he was a poor historian. He also was noted to have a high systolic blood pressure. She notes that he had complained of headaches off and on, but that he had at most sustained headaches for a couple days before admission and that he was starting to develop dizziness. She also reports that he was having frequent urination, although he wears a diaper. PAST MEDICAL HISTORY: Hypertension. Noted to be on chronic anticoagulation which reportedly started within the recent weeks. ALLERGIES: No known drug allergies. MEDICATIONS: Current Medications Medications (Trade) Dose Ordered Sig/Karli Route PRN Reason Start Time Stop Time Status Last Admin Dose Admin Sodium Chloride (NS Flush) 2 ml UNSCH PRN IV FLUSH FLUSH AFTER USING IV ACCESS 12/08/17 15:45 Sodium Chloride (NS Flush) 2 ml BID IV FLUSH 12/08/17 21:00 12/12/17 09:00 Amlodipine Besylate (Norvasc) 10 mg DAILY PO 12/09/17 09:00 12/12/17 10:29 Gabapentin (Neurontin) 300 mg BID PO 12/08/17 21:00 12/12/17 10:29 Hydralazine HCl (Apresoline Inj) 10 mg Q30M PRN IV PUSH bp>160/70 12/08/17 20:45 12/09/17 18:29 Acetaminophen (Tylenol) 650 mg Q6HR PRN PO headache/fever/pain1-4 12/09/17 15:15 12/11/17 21:18 Doxazosin Mesylate (Cardura) 2 mg DAILY PO 12/10/17 09:00 12/12/17 10:29 Labetalol HCl (Trandate Inj) 10 mg Q6H PRN IV PUSH SYS BP GREATER THAN 170 MMHG 12/09/17 16:15 12/10/17 05:22 Acetaminophen (Tylenol Supp) 650 mg Q6H PRN RECTAL fever 12/10/17 04:45 12/12/17 01:32 Piperacillin Sod/ Tazobactam Sod 50 ml @ 100 mls/hr Q8H IV 12/10/17 14:00 12/12/17 14:37 Dextrose/Sodium Chloride 1,000 ml @ 50 mls/hr Q20H IV 12/11/17 08:30 12/11/17 21:20 Nystatin (Mycostatin Liq) 5 ml QID SWISH-SWAL 12/11/17 13:00 12/12/17 14:37 Metoprolol Tartrate (Lopressor) 25 mg Q8H PO 12/12/17 16:00 12/12/17 15:50 Clonidine (Catapres) 0.1 mg Q6H PRN PO SBP>160, DBP>90 12/12/17 15:45 SOCIAL HISTORY: The patient was born in [place]. Positive tobacco use, 1 pack a day. No alcohol. No illicit drugs. The patient is . Objective: Vital Signs Date Time Temp Pulse Resp B/P (MAP) Pulse Ox O2 Delivery O2 Flow Rate FiO2 12/12/17 18:00 81 12/12/17 17:00 88 12/12/17 16:00 98.5 96 22 167/69 (101) 99 12/12/17 16:00 98 12/12/17 15:00 98 12/12/17 14:00 96 12/12/17 13:00 99 12/12/17 12:00 99.5 95 20 170/69 (102) 99 12/12/17 12:00 106 12/12/17 11:00 98 12/12/17 10:00 100 12/12/17 09:00 102 12/12/17 08:00 98.5 96 20 151/67 (95) 98 12/12/17 05:14 99.9 94 22 158/78 (104) 99 12/12/17 04:07 90 12/12/17 02:58 99.5 12/12/17 00:22 102.0 96 24 142/65 (90) 98 12/11/17 21:29 101.6 109 22 165/70 (101) 94 12/11/17 20:10 103 Laboratory Tests Test 12/12/17 03:44 Blood Urea Nitrogen 24 MG/DL Creatinine 1.99 MG/DL Random Glucose 115 MG/DL Calcium Level 8.0 MG/DL Sodium Level 139 MEQ/L Potassium Level 4.2 MEQ/L Chloride Level 105 MEQ/L Carbon Dioxide Level 28.4 MEQ/L Anion Gap 6 MEQ/L Estimat Glomerular Filtration Rate 40 ML/MIN Imaging: Lumbar Puncture Fluoroscopy 12/11/17 0000 Signed Impressions: Service Date/Time: November 11:03 - CONCLUSION: Uncomplicated fluoroscopically guided lumbar puncture with pressures as above. Michael Eisenberg MD Head CT 12/10/17 0000 Signed Impressions: Service Date/Time: Sunday, December 10, 2017 12:58 - CONCLUSION: 1. Sellar/suprasellar mass which has been described on recent studies including MRI of the brain. 2. Stable cerebral atrophy and moderate periventricular/subcortical white matter small vessel ischemic changes bilaterally. 3. 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 4. No acute infarct, acute hemorrhage, midline shift or extra-axial bleed. Thien Elkins MD Chest X-Ray 12/10/17 Signed Impressions: Service Date/Time: Sunday, December 10, 2017 13:30 - CONCLUSION: New parenchymal changes right base Bernardino Santo MD FACR Lower Extremity Ultrasound 12/08/171907 Signed Impressions: Service Date/Time: Friday, December 08, 2017 18:53 - CONCLUSION: Normal examination. Manuel Perez MD Brain MRI 12/08/171907 Signed Impressions: Service Date/Time: Friday, December 08, 2017 21:51 - CONCLUSION: 1. 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 This is of mixed signal intensity. No definite enhancement. 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 Followup study in 3 months recommended for stability. 2. Cerebral atrophy with old bilateral basal ganglia lacunar infarcts. 3. The Sean Rodriguez MD PHYSICAL EXAMINATION: GENERAL: No acute distress. HEENT: The head reveals mild ecchymosis at the superior orbital region at the right frontal aspect of the head and also at the area below the right orbit. Extraocular movements appear grossly intact. Pupils reactive to light. No icterus. Oropharynx : Positive thrush. No other lesions. Mucosa was slightly dry. NECK: Supple without adenopathy or swelling. LUNGS: Decreased breath sounds. HEART: Regular S1, S2, without murmurs, rubs or gallops. ABDOMEN: Bowel sounds diminished but present. Soft, no tenderness appreciated. EXTREMITIES: No clubbing, no cyanosis, no edema. SKIN: No diffuse rash. NEUROLOGIC: No gross focal finding. He moves all extremities. Decreased strength in all extremities. PSYCHIATRIC: The patient is calm and cooperative. IMPRESSION: 1. Fever and abnormal urinalysis in a patient presenting with headache and dizziness. Also abnormal chest x-ray. 2. Lumbar puncture revealing 3 white cells in tube #4 and normal glucose with elevated protein. Does not appear to have central nervous system infection. 3. Abnormality on MRI. The patient with known pituitary mass. This is felt to be a pituitary adenoma. 4. Pneumonia based on abnormal chest x-ray with parenchymal changes at the right base. However, the patient does not appear to be coughing or producing sputum and possibly this could be from aspiration. 5. Acute renal disease based on chemistry studies. It appears that changes in the spinal fluid may not reflect infection. However, we should continue to monitor the Gram's stain and culture from the CSF. RECOMMENDATIONS: 1. Continue piperacillin/tazobactam. 2. Follow the repeat urine culture. 3. Monitor temperature. 4. Obtain RPR. Follow CSF VDRL. 5. Monitor clinical status. 6. Repeat chest x-ray tomorrow. 7. Continue to monitor the patient's clinical response. Ghulam Ascencio MD Dec 12, 2017 20:09
[2017-12-12] MEDS: ACETAMINOPHEN 325 MG TAB PO PRN (20:22)
[2017-12-12] MEDS: DEXT 5%-NACL 0.9% 1000 ML INJ 1,000 ML IV SCH (20:30)
[2017-12-13] VITALS (32 sets, daily range): BP systolic 146–180; BP diastolic 68–78; PULSE 76–102; RESP 20–24; TEMP 99.1–101; O2SAT 95–99
[2017-12-13] MEDS: METOPROLOL TARTRATE 25 MG TAB PO SCH ×3 (00:36→15:53)
[2017-12-13] MEDS: ACETAMINOPHEN 325 MG TAB PO PRN ×2 (03:23→20:50)
[2017-12-13] MEDS: PIPERACIL-TAZO 3.375 GM PREMIX 50 ML IV SCH ×3 (05:34→20:51)
[2017-12-13 05:37] LABS: ALBUMIN 2.9 GM/DL (3.4-5.0); ALKALINE PHOSPHATASE 80 U/L (45-117); ALT (GPT) 49 U/L (12-78); AST (GOT) 79 U/L (15-37); BICARBONATE 28.4 MEQ/L (21.0-32.0); BLOOD UREA NITROGEN 22 MG/DL (7-18); CALCIUM 8.8 MG/DL (8.5-10.1); CHLORIDE 106 MEQ/L (98-107); CREATININE 1.82 MG/DL (0.60-1.30); GLOMERULAR FILTRATION RATE 44 ML/MIN (>89); GLUCOSE,RANDOM 99 MG/DL (74-106); SODIUM (NA) 142 MEQ/L (136-145); TOTAL BILIRUBIN ADULT 0.4 MG/DL (0.2-1.0); TOTAL PROTEIN 7.5 GM/DL (6.4-8.2)
--- NOTE | 2017-12-13 05:54 | RADRPT ---
EXAM DATE/TIME: 12/13/2017 04:20 [place] COMPARISON: CHEST SINGLE AP, December 10, 2017, 13:30. INDICATIONS : Shortness of breath, possible pulmonary disease. MEDICAL HISTORY : Cardiovascular disease. Hypertension SURGICAL HISTORY : None. ENCOUNTER: Subsequent ACUITY: 4 - 6 days PAIN SCORE: 0/10 LOCATION: Bilateral chest FINDINGS: The cardiac silhouette is enlarged in transverse diameter. There is prominence of the central pulmona ry vasculature with indistinct vascular margins compatible with vascular congestion but no evidence o f overt failure. No pleural effusions are identified. CONCLUSION: 1. Cardiomegaly and findings of vascular congestion without overt failure. This is new when compared with the prior exam. Kaushik Lal MD on December 13, 2017 at 5:52 Board Certified Radiologist. This report was verified electronically.
--- NOTE | 2017-12-13 09:04 | HHI.PR ---
Subjective Remarks seen with at bedside-definitely more awake and alert, and interactive- even joke about his - - oriented x 3 po intake imrpoving- taking in more fluids no complains of headaches, nausea or vomiting no urinary symptoms ff all commands still with intermittent fever- T max 101 Objective Vitals Vital Signs Date Time Temp Pulse Resp B/P (MAP) Pulse Ox O2 Delivery O2 Flow Rate FiO2 12/13/17 06:00 76 12/13/17 05:37 99.6 12/13/17 05:00 78 12/13/17 04:30 100.6 12/13/17 04:00 76 12/13/17 03:26 101.0 83 20 158/72 (100) 99 12/13/17 03:00 80 12/13/17 02:00 90 12/13/17 01:00 84 12/13/17 00:00 84 12/12/17 23:20 99.5 85 20 133/69 (90) 97 12/12/17 23:00 90 12/12/17 22:00 90 12/12/17 21:50 100.4 12/12/17 21:00 94 12/12/17 20:00 90 12/12/17 19:50 101.3 94 20 147/67 (93) 99 12/12/17 19:00 90 12/12/17 18:00 81 12/12/17 17:00 88 12/12/17 16:00 98.5 96 22 167/69 (101) 99 12/12/17 16:00 98 12/12/17 15:00 98 12/12/17 14:00 96 12/12/17 13:00 99 12/12/17 12:00 99.5 95 20 170/69 (102) 99 12/12/17 12:00 106 12/12/17 11:00 98 12/12/17 10:00 100 12/12/17 09:00 102 I/O 12/12/17 12/12/17 12/12/17 12/13/17 12/13/17 12/13/17 07:00 15:00 23:00 07:00 15:00 23:00 Intake Total 290 ml 2705 ml 100 ml Output Total 400 ml 802 ml 400 ml Balance -110 ml 1903 ml -300 ml Intake Oral 240 ml 530 ml 100 ml IV Total 50 ml 2175 ml Output Urine Total 400 ml 800 ml 400 ml Stool Total 2 ml # Voids 3 # Bowel Movements 2 Result Diagram: 12/11/17 0651 12/13/17 0403 Imaging Last Impressions Chest X-Ray 12/13/17 0600 Signed Impressions: Service Date/Time: Wednesday, December 13, 2017 04:20 - CONCLUSION: 1. Cardiomegaly and findings of vascular congestion without overt failure. This is new when compared with the prior exam. Kaushik Lal MD Lumbar Puncture Fluoroscopy 12/11/17 0000 Signed Impressions: Service Date/Time: November 11:03 - CONCLUSION: Uncomplicated fluoroscopically guided lumbar puncture with pressures as above. Michael Eisenberg MD Head CT 12/10/17 0000 Signed Impressions: Service Date/Time: Sunday, December 10, 2017 12:58 - CONCLUSION: 1. Sellar/suprasellar mass which has been described on recent studies including MRI of the brain. 2. Stable cerebral atrophy and moderate periventricular/subcortical white matter small vessel ischemic changes bilaterally. 3. 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 4. No acute infarct, acute hemorrhage, midline shift or extra-axial bleed. Thien Elkins MD Lower Extremity Ultrasound 12/08/171907 Signed Impressions: Service Date/Time: Friday, December 08, 2017 18:53 - CONCLUSION: Normal examination. Manuel Perez MD Brain MRI 12/08/171907 Signed Impressions: Service Date/Time: Friday, December 08, 2017 21:51 - CONCLUSION: 1. 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 This is of mixed signal intensity. No definite enhancement. 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 Followup study in 3 months recommended for stability. 2. Cerebral atrophy with old bilateral basal ganglia lacunar infarcts. 3. The Sean Rodriguez MD Objective Remarks oriented to place , person and year, interactive speech soft but clear anicteric, pupils equally reactive very dry oral mucosa, + oral thrush- improved neck supple, no resistance to flexion no rales or wheezes regular rhythm- abdomen soft, nontender, but more distended today on exam, good bowel sounds extremities no edema neuro exam_ awake, oriented c 3, speech clear pupils equally reactive no facial asymmetry + gag moves all extremities spontaneously grossly no sensory deficit absent Babinski DTrs + Procedures 12/11- LP A/P Assessment and Plan 77 male Sepsis with encephalopathy- multiple etiology- still with intermittent fever 101 t max Urinary tract Infection- Pyuria Lung infiltrate possible aspiration - S/P LP with studies- unremarkable , negative gram stain, pending final culture - ff Blood cultures- negative so far . - Repeat CBC, blood cultures today 12/13. Repeat UA - urine culture - no growth-- repeat UA in am - ID ff - continue on zosyn Acute Kidney inrury secondary to Sepsis and poor po likely with underlying CKI -renal function improving- non oliguric --decrease IVF rate - needs to be fed hypertensive urgency with headaches- requiring several doses of iv meds - on admission -telemetry - SR - started on Lopressor 25 mg po q 8 - continue on Amlodipine - change Clondiine to prn - continue to adjust Oral thrush - Nystatin qid sellar mass with visual disturbance/ dizziness/ falls chronic anticoagulation on coumadin - INR 1.1 on admission - neurology ff Deconditining- generalized weakness- -needs total assist - will need Skilled rehab on DC Speech therapy ff Teds/SCDs PT eval and treat no chemical prophylaxis - S/p LP Out of bed daily CM DC planning- will need skilled Prabhjot Armenta MD Dec 13, 2017 09:04
[2017-12-13] MEDS: NYSTATIN SUSP 500,000 U/5 ML CUP SWISH-SWAL SCH ×4 (09:20→20:50)
[2017-12-13] MEDS: SODIUM CHLORIDE 0.9% FLUSH 10 ML FLUSH IV FLUSH SCH ×2 (09:21→20:48)
[2017-12-13] MEDS: GABAPENTIN 300 MG CAP PO SCH ×2 (09:21→20:50)
[2017-12-13] MEDS: DOXAZOSIN MESYLATE 2 MG TAB PO SCH (09:21)
[2017-12-13 09:34] LABS: AUTOMATED NEUTROPHIL # 3.3 TH/MM3 (1.8-7.7); BASOPHIL % 0.7 % (0.0-2.0); EOSINOPHIL # 0.2 TH/MM3 (0-0.4); EOSINOPHIL % 3.6 % (0.0-4.0); HEMATOCRIT 30.3 % (39.0-51.0); HEMOGLOBIN 10.1 GM/DL (13.0-17.0); LYMPH % 22.3 % (9.0-44.0); LYMPHOCYTE # 1.2 TH/MM3 (1.0-4.8); MEAN CELL VOLUME 85.9 FL (80.0-100.0); MEAN CORPUSCULAR HEMOGLOBIN 28.6 PG (27.0-34.0); MEAN CORPUSCULAR HGB CONC 33.3 % (32.0-36.0); MEAN PLATELET VOLUME 7.4 FL (7.0-11.0); MONO % 12.4 % (0.0-8.0); MONOCYTE # 0.7 TH/MM3 (0-0.9); PLATELET COUNT 248 TH/MM3 (150-450); RED BLOOD COUNT 3.53 MIL/MM3 (4.50-5.90); RED CELL DISTRIBUTION WIDTH 13.8 % (11.6-17.2); WHITE BLOOD COUNT 5.4 TH/MM3 (4.0-11.0)
[2017-12-13] MEDS: DEXT 5%-NACL 0.9% 1000 ML INJ 1,000 ML IV SCH (13:11)
[2017-12-13 13:53] LABS: BACTERIA, URINE OCC /hpf; BILIRUBIN, URINE NEG (NEG); BLOOD, URINE SMALL (NEG); GLUCOSE,URINE NEG (NEG); KETONE, URINE NEG (NEG); MUCUS URINE FEW /lpf (OCC); NITRITE,URINE NEG (NEG); PH, URINE 5.5 (5.0-8.5); SQUAMOUS EPITHELIAL CELL URINE 2 /hpf (0-5); URINE COLOR YELLOW (YELLW/STRAW); URINE LEUKOCYTE ESTERASE MOD (NEG)
--- NOTE | 2017-12-13 15:29 | HHI.NSPN ---
Note Status Status: Progress Note Interval History Diagnosis THIS NOTE REPRESENTS MY ENCOUNTER DURING 12/12/17 ROUNDS Sepsis Interval History THIS NOTE REPRESENTS MY ENCOUNTER DURING 12/12/17 ROUNDS This is a 77 years old Black man who presented to the ER with the history of headaches and dizziness 2 days prior to admission His work up was significant for a suprasellar mass consistent with a macroadenoma. He is currently unable to provide a good history and in fact is only able to open his eyes but not able to answer questions. A sepsis alert was just released on him. He was also found to have high blood pressure a hypertensive urgency. 12/10: continues to appear lethargic, opens eyes and follows intermittent only few simple commands then falls back asleep. 12/11: s/p LP, currently flat in bed following procedure. repeat CT Brain yesterday with stable findings. 12/12. He is non bed, comfortable. LP done yestersday. CSF negative so far Labs, Micro, & Vital Signs Results THIS NOTE REPRESENTS MY ENCOUNTER DURING 12/12/17 ROUNDS Date Time Temp Pulse Resp B/P (MAP) Pulse Ox O2 Delivery O2 Flow Rate FiO2 12/13/17 13:21 100.0 84 20 146/78 (100) 98 12/13/17 10:00 84 12/13/17 09:00 80 12/13/17 08:56 99.1 78 24 166/75 (105) 95 12/13/17 08:00 80 12/13/17 07:00 82 12/13/17 06:00 76 12/13/17 05:37 99.6 12/13/17 05:00 78 12/13/17 04:30 100.6 12/13/17 04:00 76 12/13/17 03:26 101.0 83 20 158/72 (100) 99 12/13/17 03:00 80 12/13/17 02:00 90 12/13/17 01:00 84 12/13/17 00:00 84 12/12/17 23:20 99.5 85 20 133/69 (90) 97 12/12/17 23:00 90 12/12/17 22:00 90 12/12/17 21:50 100.4 12/12/17 21:00 94 12/12/17 20:00 90 12/12/17 19:50 101.3 94 20 147/67 (93) 99 12/12/17 19:00 90 12/12/17 18:00 81 12/12/17 17:00 88 12/12/17 16:00 98.5 96 22 167/69 (101) 99 12/12/17 16:00 98 12/14/17 07:00 Intake Total 300 ml Balance 300 ml Constitutional THIS NOTE REPRESENTS MY ENCOUNTER DURING 12/12/17 ROUNDS Vital Signs Date Time Temp Pulse Resp B/P (MAP) Pulse Ox O2 Delivery O2 Flow Rate FiO2 12/13/17 13:21 100.0 84 20 146/78 (100) 98 12/13/17 10:00 84 12/13/17 09:00 80 12/13/17 08:56 99.1 78 24 166/75 (105) 95 12/13/17 08:00 80 12/13/17 07:00 82 12/13/17 06:00 76 12/13/17 05:37 99.6 12/13/17 05:00 78 12/13/17 04:30 100.6 12/13/17 04:00 76 12/13/17 03:26 101.0 83 20 158/72 (100) 99 12/13/17 03:00 80 12/13/17 02:00 90 12/13/17 01:00 84 12/13/17 00:00 84 12/12/17 23:20 99.5 85 20 133/69 (90) 97 12/12/17 23:00 90 12/12/17 22:00 90 12/12/17 21:50 100.4 12/12/17 21:00 94 12/12/17 20:00 90 12/12/17 19:50 101.3 94 20 147/67 (93) 99 12/12/17 19:00 90 12/12/17 18:00 81 12/12/17 17:00 88 12/12/17 16:00 98.5 96 22 167/69 (101) 99 12/12/17 16:00 98 12/14/17 07:00 Intake Total 300 ml Balance 300 ml Physical Exam THIS NOTE REPRESENTS MY ENCOUNTER DURING 12/12/17 ROUNDS Mr. Molina is an elderly -[place] male in no acute distress. HEENT: Normocephalic, nonicteric sclera Neuro: lethargic, drowsy, only says few words, not really answering questions nor consistently following commands. Cranial nerve examination: pupils equal, round. Facial motor function appears symmetrical at rest. Right ptosis. Face sensation, hearing, visual thacker, and olfaction can not be assessed properly due to the patients condition. Neck is soft and supple. Motor: raised his arms above the bed to command, withdrew his legs to pain stimuli. Otherwise exam limited due to his clinical condition Cerebellar examination is limited due to the patient condition, but no obvious deficits are noted. Heart: Regular rate rhythm Lungs: Clear no wheezes Medications Current Medications THIS NOTE REPRESENTS MY ENCOUNTER DURING 12/12/17 ROUNDS Current Medications Sodium Chloride (NS Flush) 2 ml UNSCH PRN IV FLUSH FLUSH AFTER USING IV ACCESS ; Start 12/08/17 at 15:45 Sodium Chloride (NS Flush) 2 ml BID IV FLUSH Last administered on 12/13/17at 09: 21; Start 12/08/17 at 21:00 Naloxone HCl (Narcan Inj) 0.4 mg UNSCH PRN IV PUSH SEE LABEL COMMENTS; Start at 15:45; Stop 12/10/17 at 13:16; Status DC Amlodipine Besylate (Norvasc) 10 mg DAILY PO Last administered on 12/13/17at 09: 21; Start 12/09/17 at 09:00 Clonidine (Catapres) 0.1 mg HS PO Last administered on 12/08/17at 21:04; Start at 21:00; Stop 12/09/17 at 16:09; Status DC Gabapentin (Neurontin) 300 mg BID PO Last administered on 12/13/17 09:21; Start 12/08/17 at 21:00 Hydralazine HCl (Apresoline Inj) 10 mg Q30M PRN IV PUSH bp>160/70 Last administered on 12/09/17at 18:29; Start 12/08/17 at 20:45 Labetalol HCl (Trandate Inj) 20 mg ONCE ONCE IV PUSH Last administered on at 22:49; Start 12/08/17 at 22:00; Stop 12/08/17 at 22:01; Status DC Gadodiamide (Omniscan Pf Inj) 16 ml STK-MED ONCE IVCONTRAST Last administered on 12/08/17at 22:30; Start 12/08/17 at 18:35; Stop 12/08/17 at 22:18; Status DC Acetaminophen (Tylenol) 650 mg Q6HR PRN PO headache/fever/pain1-4 Last administered on 12/13/17at 03:23; Start 12/09/17 at 15:15 Doxazosin Mesylate (Cardura) 2 mg DAILY PO Last administered on 12/13/17at 09:21 ; Start 12/10/17 at 09:00 Doxazosin Mesylate (Cardura) 2 mg ONCE ONCE PO Last administered on 12/09/17at 17:02; Start 12/09/17 at 16:15; Stop 12/09/17 at 16:16; Status DC Clonidine (Catapres) 0.1 mg Q8HR PO ; Start 12/09/17 at 22:00; Stop 12/09/17 at 22:00; Status DC Clonidine (Catapres) 0.1 mg Q8HR PO Last administered on 12/12/17at 14:37; Start 12/09/17 at 16:15; Stop 12/12/17 at 15:46; Status DC Labetalol HCl (Trandate Inj) 10 mg Q6H PRN IV PUSH SYS BP GREATER THAN 170 MMHG Last administered on 12/10/17at 05:22; Start 12/09/17 at 16:15 Acetaminophen 100 ml @ 400 mls/hr ONCE ONCE IV Last administered on at 21:39; Start 12/09/17 at 21:30; Stop 12/09/17 at 21:44; Status DC Acetaminophen (Tylenol Supp) 650 mg Q6H PRN RECTAL fever Last administered on at 01:32; Start 12/10/17 at 04:45 Clonidine (Catapres-Tts 0.1mg Patch.7d) 1 patch Q7D T-DERMAL Last administered on 12/10/17at 12:38; Start 12/10/17 at 13:00; Stop 12/12/17 at 15:47; Status DC Morphine Sulfate (Morphine Inj) 2 mg Q3H PRN IV PUSH Pain 3-5; if unable to take PO; Start 12/10/17 at 11:45; Status Cancel Morphine Sulfate (Morphine Inj) 4 mg Q3H PRN IV PUSH Pain 6-10;if unable to take PO; Start 12/10/17 at 11:45; Status Cancel Morphine Sulfate (Morphine Inj) 4 mg Q3H PRN IV PUSH BREAKTHROUGH PAIN; Start 12/10/17 at 11:45; Status Cancel Naloxone HCl (Narcan Inj) 0.4 mg UNSCH PRN IV PUSH SEE LABEL COMMENTS; Start at 11:45; Status Cancel Miscellaneous Information 1 Q7D T-DERMAL ; Start 12/17/17 at 13:00; Status Cancel Piperacillin Sod/ Tazobactam Sod 50 ml @ 100 mls/hr Q8H IV Last administered on 12/13/17at 13:09; Start 12/10/17 at 14:00 Acetaminophen (Tylenol Supp) 650 mg NOW ONCE RECTAL Last administered on at 18:04; Start 12/10/17 at 18:00; Stop 12/10/17 at 18:01; Status DC Dextrose/Sodium Chloride 1,000 ml @ 50 mls/hr Q20H IV Last administered on at 13:11; Start 12/11/17 at 08:30 Sodium Chloride 500 ml @ 500 mls/hr BOLUS ONCE IV Last administered on at 08:30; Start 12/11/17 at 08:30; Stop 12/11/17 at 09:29; Status DC Nystatin (Mycostatin Liq) 5 ml QID SWISH-SWAL Last administered on 12/13/17at 13:09; Start 12/11/17 at 13:00 Metoprolol Tartrate (Lopressor) 25 mg Q8H PO Last administered on 12/13/17at 09: 21; Start 12/12/17 at 16:00 Clonidine (Catapres) 0.1 mg Q6H PRN PO SBP>160, DBP>90; Start 12/12/17 at 15:45 Attending Statement THIS NOTE REPRESENTS MY ENCOUNTER DURING 12/12/17 ROUNDS 77-year-old male who presented with headaches, altered mental status MRI showed pituitary macroadenoma Toxic Metabolic Encephalopathy due to multifactorial- Sepsis, UTI, aspiration pneumonia continue nonsurgical management of pituitary macroadenoma Evaluation with ophthalmology pending Fever and abnormal urinalysis in a patient presenting with headache and dizziness. His lumbar puncture revealing 3 white cells and normal glucose with elevated protein. known pituitary massconsistent with a pituitary adenoma. Continue nonoperative management. Endocrinological workup in progress Pneumonia based on abnormal chest x-ray with parenchymal changes at the right base. Possibly this could be from aspiration pneumonia. Acute renal disease careful fluid hydration, monitor BUN and creatinine ID Continue piperacillin/tazobactam. Repeat the urine culture since the current culture just shows mixed organisms. Continue Protonix for stress ulcer prophylaxis HANNY dorotheae and SCDs for DVT prophylaxis Aleksander Machado MD Dec 13, 2017 15:29
--- NOTE | 2017-12-13 15:38 | HHI.NSPN ---
Note Status Status: Progress Note Interval History Diagnosis Sepsis Interval History This is a 77 years old Black man who presented to the ER with the history of headaches and dizziness 2 days prior to admission His work up was significant for a suprasellar mass consistent with a macroadenoma. He is currently unable to provide a good history and in fact is only able to open his eyes but not able to answer questions. A sepsis alert was just released on him. He was also found to have high blood pressure a hypertensive urgency. 12/10: continues to appear lethargic, opens eyes and follows intermittent only few simple commands then falls back asleep. 12/11: s/p LP, currently flat in bed following procedure. repeat CT Brain yesterday with stable findings. 12/12. He is non bed, comfortable. LP done yestersday. CSF negative so far 12/13. He is more awake. Alert and oriented. Receiving IV antibiotics Labs, Micro, & Vital Signs Results Date Time Temp Pulse Resp B/P (MAP) Pulse Ox O2 Delivery O2 Flow Rate FiO2 12/13/17 13:21 100.0 84 20 146/78 (100) 98 12/13/17 10:00 84 12/13/17 09:00 80 12/13/17 08:56 99.1 78 24 166/75 (105) 95 12/13/17 08:00 80 12/13/17 07:00 82 12/13/17 06:00 76 12/13/17 05:37 99.6 12/13/17 05:00 78 12/13/17 04:30 100.6 12/13/17 04:00 76 12/13/17 03:26 101.0 83 20 158/72 (100) 99 12/13/17 03:00 80 12/13/17 02:00 90 12/13/17 01:00 84 12/13/17 00:00 84 12/12/17 23:20 99.5 85 20 133/69 (90) 97 12/12/17 23:00 90 12/12/17 22:00 90 12/12/17 21:50 100.4 12/12/17 21:00 94 12/12/17 20:00 90 12/12/17 19:50 101.3 94 20 147/67 (93) 99 12/12/17 19:00 90 12/12/17 18:00 81 12/12/17 17:00 88 12/12/17 16:00 98.5 96 22 167/69 (101) 99 12/12/17 16:00 98 12/14/17 07:00 Intake Total 300 ml Balance 300 ml Constitutional Vital Signs Date Time Temp Pulse Resp B/P (MAP) Pulse Ox O2 Delivery O2 Flow Rate FiO2 12/13/17 13:21 100.0 84 20 146/78 (100) 98 12/13/17 10:00 84 12/13/17 09:00 80 12/13/17 08:56 99.1 78 24 166/75 (105) 95 12/13/17 08:00 80 12/13/17 07:00 82 12/13/17 06:00 76 12/13/17 05:37 99.6 12/13/17 05:00 78 12/13/17 04:30 100.6 12/13/17 04:00 76 12/13/17 03:26 101.0 83 20 158/72 (100) 99 12/13/17 03:00 80 12/13/17 02:00 90 12/13/17 01:00 84 12/13/17 00:00 84 12/12/17 23:20 99.5 85 20 133/69 (90) 97 12/12/17 23:00 90 12/12/17 22:00 90 12/12/17 21:50 100.4 12/12/17 21:00 94 12/12/17 20:00 90 12/12/17 19:50 101.3 94 20 147/67 (93) 99 12/12/17 19:00 90 12/12/17 18:00 81 12/12/17 17:00 88 12/12/17 16:00 98.5 96 22 167/69 (101) 99 12/12/17 16:00 98 12/14/17 07:00 Intake Total 300 ml Balance 300 ml Physical Exam Mr. Molina is an elderly -[place] male in no acute distress. HEENT: Normocephalic, nonicteric sclera Neuro: lethargic, drowsy, only says few words, not really answering questions nor consistently following commands. Cranial nerve examination: pupils equal, round. Facial motor function appears symmetrical at rest. Right ptosis. Face sensation, hearing, visual thacker, and olfaction can not be assessed properly due to the patients condition. Neck is soft and supple. Motor: raised his arms above the bed to command, withdrew his legs to pain stimuli. Otherwise exam limited due to his clinical condition Cerebellar examination is limited due to the patient condition, but no obvious deficits are noted. Heart: Regular rate rhythm Lungs: Clear no wheezes Medications Current Medications Current Medications Sodium Chloride (NS Flush) 2 ml UNSCH PRN IV FLUSH FLUSH AFTER USING IV ACCESS ; Start 12/08/17 at 15:45 Sodium Chloride (NS Flush) 2 ml BID IV FLUSH Last administered on 12/13/17 09: 21; Start 12/08/17 at 21:00 Naloxone HCl (Narcan Inj) 0.4 mg UNSCH PRN IV PUSH SEE LABEL COMMENTS; Start at 15:45; Stop 12/10/17 at 13:16; Status DC Amlodipine Besylate (Norvasc) 10 mg DAILY PO Last administered on 12/13/17 09: 21; Start 12/09/17 at 09:00 Clonidine (Catapres) 0.1 mg HS PO Last administered on 12/08/17at 21:04; Start at 21:00; Stop 12/09/17 at 16:09; Status DC Gabapentin (Neurontin) 300 mg BID PO Last administered on 12/13/17 09:21; Start 12/08/17 at 21:00 Hydralazine HCl (Apresoline Inj) 10 mg Q30M PRN IV PUSH bp>160/70 Last administered on 12/09/17 18:29; Start 12/08/17 at 20:45 Labetalol HCl (Trandate Inj) 20 mg ONCE ONCE IV PUSH Last administered on at 22:49; Start 12/08/17 at 22:00; Stop 12/08/17 at 22:01; Status DC Gadodiamide (Omniscan Pf Inj) 16 ml STK-MED ONCE IVCONTRAST Last administered on 12/08/17at 22:30; Start 12/08/17 at 18:35; Stop 12/08/17 at 22:18; Status DC Acetaminophen (Tylenol) 650 mg Q6HR PRN PO headache/fever/pain1-4 Last administered on 12/13/17at 03:23; Start 12/09/17 at 15:15 Doxazosin Mesylate (Cardura) 2 mg DAILY PO Last administered on 12/13/17at 09:21 ; Start 12/10/17 at 09:00 Doxazosin Mesylate (Cardura) 2 mg ONCE ONCE PO Last administered on 12/09/17at 17:02; Start 12/09/17 at 16:15; Stop 12/09/17 at 16:16; Status DC Clonidine (Catapres) 0.1 mg Q8HR PO ; Start 12/09/17 at 22:00; Stop 12/09/17 at 22:00; Status DC Clonidine (Catapres) 0.1 mg Q8HR PO Last administered on 12/12/17at 14:37; Start 12/09/17 at 16:15; Stop 12/12/17 at 15:46; Status DC Labetalol HCl (Trandate Inj) 10 mg Q6H PRN IV PUSH SYS BP GREATER THAN 170 MMHG Last administered on 12/10/17at 05:22; Start 12/09/17 at 16:15 Acetaminophen 100 ml @ 400 mls/hr ONCE ONCE IV Last administered on at 21:39; Start 12/09/17 at 21:30; Stop 12/09/17 at 21:44; Status DC Acetaminophen (Tylenol Supp) 650 mg Q6H PRN RECTAL fever Last administered on at 01:32; Start 12/10/17 at 04:45 Clonidine (Catapres-Tts 0.1mg Patch.7d) 1 patch Q7D T-DERMAL Last administered on 12/10/17at 12:38; Start 12/10/17 at 13:00; Stop 12/12/17 at 15:47; Status DC Morphine Sulfate (Morphine Inj) 2 mg Q3H PRN IV PUSH Pain 3-5; if unable to take PO; Start 12/10/17 at 11:45; Status Cancel Morphine Sulfate (Morphine Inj) 4 mg Q3H PRN IV PUSH Pain 6-10;if unable to take PO; Start 12/10/17 at 11:45; Status Cancel Morphine Sulfate (Morphine Inj) 4 mg Q3H PRN IV PUSH BREAKTHROUGH PAIN; Start 12/10/17 at 11:45; Status Cancel Naloxone HCl (Narcan Inj) 0.4 mg UNSCH PRN IV PUSH SEE LABEL COMMENTS; Start at 11:45; Status Cancel Miscellaneous Information 1 Q7D T-DERMAL ; Start 12/17/17 at 13:00; Status Cancel Piperacillin Sod/ Tazobactam Sod 50 ml @ 100 mls/hr Q8H IV Last administered on 12/13/17at 13:09; Start 12/10/17 at 14:00 Acetaminophen (Tylenol Supp) 650 mg NOW ONCE RECTAL Last administered on at 18:04; Start 12/10/17 at 18:00; Stop 12/10/17 at 18:01; Status DC Dextrose/Sodium Chloride 1,000 ml @ 50 mls/hr Q20H IV Last administered on at 13:11; Start 12/11/17 at 08:30 Sodium Chloride 500 ml @ 500 mls/hr BOLUS ONCE IV Last administered on at 08:30; Start 12/11/17 at 08:30; Stop 12/11/17 at 09:29; Status DC Nystatin (Mycostatin Liq) 5 ml QID SWISH-SWAL Last administered on 12/13/17at 13:09; Start 12/11/17 at 13:00 Metoprolol Tartrate (Lopressor) 25 mg Q8H PO Last administered on 12/13/17at 09: 21; Start 12/12/17 at 16:00 Clonidine (Catapres) 0.1 mg Q6H PRN PO SBP>160, DBP>90; Start 12/12/17 at 15:45 Attending Statement 77-year-old male who presented with headaches, altered mental status MRI showed pituitary macroadenoma Toxic Metabolic Encephalopathy due to multifactorial- Sepsis, UTI, aspiration pneumonia Some improvement with IV antibioticscontinue nonsurgical management of pituitary macroadenoma Endocrinological workup in progress Evaluation with ophthalmology pending Fever and abnormal urinalysis in a patient presenting with headache and dizziness. His lumbar puncture revealing 3 white cells and normal glucose with elevated protein. known pituitary massconsistent with a pituitary adenoma. Continue nonoperative management. Endocrinological workup in progress Pneumonia based on abnormal chest x-ray with parenchymal changes at the right base. Possibly this could be from aspiration pneumonia. Acute renal disease careful fluid hydration, monitor BUN and creatinine ID Continue piperacillin/tazobactam. Repeat the urine culture since the current culture just shows mixed organisms. Continue Protonix for stress ulcer prophylaxis HANNY hose and SCDs for DVT prophylaxis Aleksander Machado MD Dec 13, 2017 15:38
[2017-12-13] MEDS: hydrALAZINE HCL 20 MG/ML VIAL IV PUSH PRN (18:06)
[2017-12-13] MEDS: LABETALOL HCL 100 MG/20 ML VIAL IV PUSH PRN (18:49)
[2017-12-13] MEDS: cloNIDine HCL 0.1 MG TAB PO PRN (20:50)
[2017-12-14] VITALS (29 sets, daily range): BP systolic 139–181; BP diastolic 68–85; PULSE 74–111; RESP 20–22; TEMP 99.6–101.5; O2SAT 97–99
[2017-12-14] MEDS: METOPROLOL TARTRATE 25 MG TAB PO SCH ×3 (00:35→16:08)
[2017-12-14] MEDS: DEXT 5%-NACL 0.9% 1000 ML INJ 1,000 ML IV SCH (05:09)
[2017-12-14] MEDS: PIPERACIL-TAZO 3.375 GM PREMIX 50 ML IV SCH ×3 (05:10→21:42)
[2017-12-14] MEDS: GABAPENTIN 300 MG CAP PO SCH ×2 (08:37→21:42)
[2017-12-14] MEDS: NYSTATIN SUSP 500,000 U/5 ML CUP SWISH-SWAL SCH ×4 (08:37→21:42)
[2017-12-14] MEDS: DOXAZOSIN MESYLATE 2 MG TAB PO SCH (08:37)
[2017-12-14] MEDS: SODIUM CHLORIDE 0.9% FLUSH 10 ML FLUSH IV FLUSH SCH ×2 (08:37→21:00)
[2017-12-14] MEDS: cloNIDine HCL 0.1 MG TAB PO PRN (08:51)
--- NOTE | 2017-12-14 10:18 | HHI.PR ---
Subjective Remarks seen with at bedside had a good breakfast this am and interactive now on exam- openend eyes- sleeping Objective Vitals Vital Signs Date Time Temp Pulse Resp B/P (MAP) Pulse Ox O2 Delivery O2 Flow Rate FiO2 12/14/17 09:00 80 12/14/17 08:33 99.8 82 22 181/80 (113) 97 12/14/17 07:00 85 12/14/17 06:00 90 12/14/17 05:00 84 12/14/17 04:00 84 12/14/17 03:00 99.7 86 20 152/85 (107) 98 12/14/17 03:00 84 12/14/17 02:00 80 12/14/17 01:00 88 12/14/17 00:00 90 12/13/17 23:00 84 12/13/17 23:00 99.8 86 20 151/68 (95) 98 12/13/17 22:00 88 12/13/17 21:00 100 12/13/17 20:00 102 12/13/17 19:45 100.9 102 20 180/76 (110) 99 12/13/17 19:00 96 12/13/17 18:14 86 12/13/17 17:59 164/76 (105) 12/13/17 17:00 80 12/13/17 16:00 90 12/13/17 15:42 99.5 93 21 166/75 (105) 97 12/13/17 15:00 92 12/13/17 14:00 86 12/13/17 13:21 100.0 84 20 146/78 (100) 98 12/13/17 13:00 78 12/13/17 12:00 82 12/13/17 11:00 83 I/O 12/13/17 12/13/17 12/13/17 12/14/17 12/14/17 12/14/17 07:00 15:00 23:00 07:00 15:00 23:00 Intake Total 150 ml 300 ml 530 ml 1100 ml Output Total 400 ml 500 ml 400 ml Balance -250 ml 300 ml 30 ml 700 ml Intake Oral 100 ml 480 ml 100 ml IV Total 50 ml 300 ml 50 ml 1000 ml Output Urine Total 400 ml 500 ml 400 ml # Voids 3 4 1 # Bowel Movements 2 2 2 Result Diagram: 12/13/17904 12/13/17 0403 Imaging Last Impressions Chest X-Ray 12/13/17 0600 Signed Impressions: Service Date/Time: Wednesday, December 13, 2017 04:20 - CONCLUSION: 1. Cardiomegaly and findings of vascular congestion without overt failure. This is new when compared with the prior exam. Kaushik Lal MD Lumbar Puncture Fluoroscopy 12/11/17 0000 Signed Impressions: Service Date/Time: November 11:03 - CONCLUSION: Uncomplicated fluoroscopically guided lumbar puncture with pressures as above. Michael Eisenberg MD Head CT 12/10/17 0000 Signed Impressions: Service Date/Time: Sunday, December 10, 2017 12:58 - CONCLUSION: 1. Sellar/suprasellar mass which has been described on recent studies including MRI of the brain. 2. Stable cerebral atrophy and moderate periventricular/subcortical white matter small vessel ischemic changes bilaterally. 3. 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 4. No acute infarct, acute hemorrhage, midline shift or extra-axial bleed. Thien Elkins MD Lower Extremity Ultrasound 12/08/171907 Signed Impressions: Service Date/Time: Friday, December 08, 2017 18:53 - CONCLUSION: Normal examination. Manuel Perez MD Brain MRI [id number]/08/[id number] Signed Impressions: Service Date/Time: Friday, December 08, 2017 21:51 - CONCLUSION: 1. 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 This is of mixed signal intensity. No definite enhancement. 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 Followup study in 3 months recommended for stability. 2. Cerebral atrophy with old bilateral basal ganglia lacunar infarcts. 3. The Sean Rodriguez MD Objective Remarks anicteric, pupils equally reactive very dry oral mucosa, + oral thrush- improved neck supple, no resistance to flexion no rales or wheezes regular rhythm- abdomen soft, nontender, but more distended today on exam, good bowel sounds left buttock- stage wound/ulcer extremities no edema neuro exam_ awake, oriented c 3, speech clear pupils equally reactive no facial asymmetry + gag moves all extremities spontaneously grossly no sensory deficit absent Babinski DTrs + Procedures 4/12- LP A/P Assessment and Plan 77 male Sepsis with encephalopathy- multiple etiology- still with intermittent fever 101 t max Urinary tract Infection- Pyuria Lung infiltrate possible aspiration - S/P LP with studies- unremarkable , negative gram stain, pending final culture - ff Blood cultures- negative so far . - Repeat CBC, blood cultures today 12/13. Repeat UA - urine culture - no growth-- repeat UA- oyuria decreased - ID ff - continue on zosyn Acute Kidney injury secondary to Sepsis and poor po likley with underlying CKI -renal function improving- non oliguric --decrease IVF rate - needs to be fed hypertensive urgency on admission -telemetry - SR - started on Lopressor 25 mg po q 8 - continue on Amlodipine - change Clondiine to prn - continue to adjust Oral thrush - Nystatin qid sellar mass with visual disturbance/ dizziness/ falls chronic anticoagulation on coumadin - INR 1.1 on admission - neurology ff Deconditining- generalized weakness- -needs total assist - will need Skilled rehab on DC Left buttock decubitus wound - wound care team consult for recommendation - reinforced with staff- turn q 2 Speech therapy ff Teds/SCDs PT eval and treat no chemical prophylaxis - S/p LP Out of bed daily CM DC planning- will need skilled start Lovenox - LP 3 days ago Prabhjot Armenta MD Dec 14, 2017 10:18
[2017-12-14 10:59] LABS: BASOPHIL % 0.7 % (0.0-2.0); EOSINOPHIL # 0.2 TH/MM3 (0-0.4); EOSINOPHIL % 3.9 % (0.0-4.0); HEMATOCRIT 31.4 % (39.0-51.0); HEMOGLOBIN 10.3 GM/DL (13.0-17.0); LYMPH % 18.9 % (9.0-44.0); LYMPHOCYTE # 1.2 TH/MM3 (1.0-4.8); MEAN CELL VOLUME 85.7 FL (80.0-100.0); MEAN CORPUSCULAR HEMOGLOBIN 28.1 PG (27.0-34.0); MEAN CORPUSCULAR HGB CONC 32.8 % (32.0-36.0); MEAN PLATELET VOLUME 7.1 FL (7.0-11.0); MONO % 10.8 % (0.0-8.0); MONOCYTE # 0.7 TH/MM3 (0-0.9); NEUT % 65.7 % (16.0-70.0); PLATELET COUNT 272 TH/MM3 (150-450); RED BLOOD COUNT 3.66 MIL/MM3 (4.50-5.90); RED CELL DISTRIBUTION WIDTH 13.9 % (11.6-17.2); WHITE BLOOD COUNT 6.1 TH/MM3 (4.0-11.0)
[2017-12-14 11:16] LABS: ALBUMIN 2.7 GM/DL (3.4-5.0); ALT (GPT) 68 U/L (12-78); AST (GOT) 104 U/L (15-37); BICARBONATE 28.9 MEQ/L (21.0-32.0); BLOOD UREA NITROGEN 27 MG/DL (7-18); CALCIUM 8.9 MG/DL (8.5-10.1); CHLORIDE 108 MEQ/L (98-107); CREATININE 1.92 MG/DL (0.60-1.30); GLOMERULAR FILTRATION RATE 42 ML/MIN (>89); GLUCOSE,RANDOM 141 MG/DL (74-106); SODIUM (NA) 142 MEQ/L (136-145)
[2017-12-14 11:18] LABS: ALKALINE PHOSPHATASE 82 U/L (45-117); TOTAL BILIRUBIN ADULT 0.3 MG/DL (0.2-1.0); TOTAL PROTEIN 7.2 GM/DL (6.4-8.2)
--- NOTE | 2017-12-14 11:37 | HHI.NSPN ---
Note Status Status: Progress Note Interval History Diagnosis Sepsis Interval History This is a 77 years old Black man who presented to the ER with the history of headaches and dizziness 2 days prior to admission His work up was significant for a suprasellar mass consistent with a macroadenoma. He is currently unable to provide a good history and in fact is only able to open his eyes but not able to answer questions. A sepsis alert was just released on him. He was also found to have high blood pressure a hypertensive urgency. 12/10: continues to appear lethargic, opens eyes and follows intermittent only few simple commands then falls back asleep. 12/11: s/p LP, currently flat in bed following procedure. repeat CT Brain yesterday with stable findings. 12/12. He is non bed, comfortable. LP done yestersday. CSF negative so far 12/14. He looks more awake and interactive. No focal deficits Labs, Micro, & Vital Signs Results Date Time Temp Pulse Resp B/P (MAP) Pulse Ox O2 Delivery O2 Flow Rate FiO2 12/14/17 10:16 151/73 (99) 12/14/17 09:00 80 12/14/17 08:33 99.8 82 22 181/80 (113) 97 12/14/17 07:00 85 12/14/17 06:00 90 12/14/17 05:00 84 12/14/17 04:00 84 12/14/17 03:00 99.7 86 20 152/85 (107) 98 12/14/17 03:00 84 12/14/17 02:00 80 12/14/17 01:00 88 12/14/17 00:00 90 12/13/17 23:00 84 12/13/17 23:00 99.8 86 20 151/68 (95) 98 12/13/17 22:00 88 12/13/17 21:00 100 12/13/17 20:00 102 12/13/17 19:45 100.9 102 20 180/76 (110) 99 12/13/17 19:00 96 12/13/17 18:14 86 12/13/17 17:59 164/76 (105) 12/13/17 17:00 80 12/13/17 16:00 90 12/13/17 15:42 99.5 93 21 166/75 (105) 97 12/13/17 15:00 92 12/13/17 14:00 86 12/13/17 13:21 100.0 84 20 146/78 (100) 98 12/13/17 13:00 78 12/13/17 12:00 82 Constitutional Vital Signs Date Time Temp Pulse Resp B/P (MAP) Pulse Ox O2 Delivery O2 Flow Rate FiO2 12/14/17 10:16 151/73 (99) 12/14/17 09:00 80 12/14/17 08:33 99.8 82 22 181/80 (113) 97 12/14/17 07:00 85 12/14/17 06:00 90 12/14/17 05:00 84 12/14/17 04:00 84 12/14/17 03:00 99.7 86 20 152/85 (107) 98 12/14/17 03:00 84 12/14/17 02:00 80 12/14/17 01:00 88 12/14/17 00:00 90 12/13/17 23:00 84 12/13/17 23:00 99.8 86 20 151/68 (95) 98 12/13/17 22:00 88 12/13/17 21:00 100 12/13/17 20:00 102 12/13/17 19:45 100.9 102 20 180/76 (110) 99 12/13/17 19:00 96 12/13/17 18:14 86 12/13/17 17:59 164/76 (105) 12/13/17 17:00 80 12/13/17 16:00 90 12/13/17 15:42 99.5 93 21 166/75 (105) 97 12/13/17 15:00 92 12/13/17 14:00 86 12/13/17 13:21 100.0 84 20 146/78 (100) 98 12/13/17 13:00 78 12/13/17 12:00 82 Physical Exam Mr. Molina is an elderly -[place] male in no acute distress. HEENT: Normocephalic, nonicteric sclera Neuro: lethargic, drowsy, only says few words, not really answering questions nor consistently following commands. Cranial nerve examination: pupils equal, round. Facial motor function appears symmetrical at rest. Right ptosis. Face sensation, hearing, visual thacker, and olfaction can not be assessed properly due to the patients condition. Neck is soft and supple. Motor: raised his arms above the bed to command, withdrew his legs to pain stimuli. Otherwise exam limited due to his clinical condition Cerebellar examination is limited due to the patient condition, but no obvious deficits are noted. Heart: Regular rate rhythm Lungs: Clear no wheezes Medications Current Medications Current Medications Sodium Chloride (NS Flush) 2 ml UNSCH PRN IV FLUSH FLUSH AFTER USING IV ACCESS ; Start 12/08/17 at 15:45 Sodium Chloride (NS Flush) 2 ml BID IV FLUSH Last administered on 12/14/17at 08: 37; Start 12/08/17 at 21:00 Naloxone HCl (Narcan Inj) 0.4 mg UNSCH PRN IV PUSH SEE LABEL COMMENTS; Start at 15:45; Stop 12/10/17 at 13:16; Status DC Amlodipine Besylate (Norvasc) 10 mg DAILY PO Last administered on 12/14/17 08: 37; Start 12/09/17 at 09:00 Clonidine (Catapres) 0.1 mg HS PO Last administered on 12/08/17at 21:04; Start at 21:00; Stop 12/09/17 at 16:09; Status DC Gabapentin (Neurontin) 300 mg BID PO Last administered on 12/14/17at 08:37; Start 12/08/17 at 21:00 Hydralazine HCl (Apresoline Inj) 10 mg Q30M PRN IV PUSH bp>160/70 Last administered on 12/13/17at 18:06; Start 12/08/17 at 20:45 Labetalol HCl (Trandate Inj) 20 mg ONCE ONCE IV PUSH Last administered on at 22:49; Start 12/08/17 at 22:00; Stop 12/08/17 at 22:01; Status DC Gadodiamide (Omniscan Pf Inj) 16 ml STK-MED ONCE IVCONTRAST Last administered on 12/08/17at 22:30; Start 12/08/17 at 18:35; Stop 12/08/17 at 22:18; Status DC Acetaminophen (Tylenol) 650 mg Q6HR PRN PO headache/fever/pain1-4 Last administered on 12/13/17at 20:50; Start 12/09/17 at 15:15 Doxazosin Mesylate (Cardura) 2 mg DAILY PO Last administered on 12/14/17at 08:37 ; Start 12/10/17 at 09:00 Doxazosin Mesylate (Cardura) 2 mg ONCE ONCE PO Last administered on 12/09/17at 17:02; Start 12/09/17 at 16:15; Stop 12/09/17 at 16:16; Status DC Clonidine (Catapres) 0.1 mg Q8HR PO ; Start 12/09/17 at 22:00; Stop 12/09/17 at 22:00; Status DC Clonidine (Catapres) 0.1 mg Q8HR PO Last administered on 12/12/17at 14:37; Start 12/09/17 at 16:15; Stop 12/12/17 at 15:46; Status DC Labetalol HCl (Trandate Inj) 10 mg Q6H PRN IV PUSH SYS BP GREATER THAN 170 MMHG Last administered on 12/13/17at 18:49; Start 12/09/17 at 16:15 Acetaminophen 100 ml @ 400 mls/hr ONCE ONCE IV Last administered on at 21:39; Start 12/09/17 at 21:30; Stop 12/09/17 at 21:44; Status DC Acetaminophen (Tylenol Supp) 650 mg Q6H PRN RECTAL fever Last administered on at 01:32; Start 12/10/17 at 04:45 Clonidine (Catapres-Tts 0.1mg Patch.7d) 1 patch Q7D T-DERMAL Last administered on 12/10/17at 12:38; Start 12/10/17 at 13:00; Stop 12/12/17 at 15:47; Status DC Morphine Sulfate (Morphine Inj) 2 mg Q3H PRN IV PUSH Pain 3-5; if unable to take PO; Start 12/10/17 at 11:45; Status Cancel Morphine Sulfate (Morphine Inj) 4 mg Q3H PRN IV PUSH Pain 6-10;if unable to take PO; Start 12/10/17 at 11:45; Status Cancel Morphine Sulfate (Morphine Inj) 4 mg Q3H PRN IV PUSH BREAKTHROUGH PAIN; Start 12/10/17 at 11:45; Status Cancel Naloxone HCl (Narcan Inj) 0.4 mg UNSCH PRN IV PUSH SEE LABEL COMMENTS; Start at 11:45; Status Cancel Miscellaneous Information 1 Q7D T-DERMAL ; Start 12/17/17 at 13:00; Status Cancel Piperacillin Sod/ Tazobactam Sod 50 ml @ 100 mls/hr Q8H IV Last administered on 12/14/17at 05:10; Start 12/10/17 at 14:00 Acetaminophen (Tylenol Supp) 650 mg NOW ONCE RECTAL Last administered on at 18:04; Start 12/10/17 at 18:00; Stop 12/10/17 at 18:01; Status DC Dextrose/Sodium Chloride 1,000 ml @ 50 mls/hr Q20H IV Last administered on at 05:09; Start 12/11/17 at 08:30 Sodium Chloride 500 ml @ 500 mls/hr BOLUS ONCE IV Last administered on at 08:30; Start 12/11/17 at 08:30; Stop 12/11/17 at 09:29; Status DC Nystatin (Mycostatin Liq) 5 ml QID SWISH-SWAL Last administered on 12/14/17at 08:37; Start 12/11/17 at 13:00 Metoprolol Tartrate (Lopressor) 25 mg Q8H PO Last administered on 12/14/17at 08: 37; Start 12/12/17 at 16:00 Clonidine (Catapres) 0.1 mg Q6H PRN PO SBP>160, DBP>90 Last administered on at 08:51; Start 12/12/17 at 15:45 Attending Statement 77-year-old male who presented with headaches, altered mental status pituitary adenoma Toxic Metabolic Encephalopathy due to multifactorial- Sepsis, UTI, aspiration pneumonia Slow improvement with IV antibiotics. Continue nonsurgical management Endocrinological workup in progress Evaluation with ophthalmology pending Fever and abnormal urinalysis in a patient presenting with headache and dizziness. His lumbar puncture revealing 3 white cells and normal glucose with elevated protein. known pituitary massconsistent with a pituitary adenoma. Continue nonoperative management. Endocrinological workup in progress Pneumonia based on abnormal chest x-ray with parenchymal changes at the right base. Possibly this could be from aspiration pneumonia. Acute renal disease careful fluid hydration, monitor BUN and creatinine ID Continue piperacillin/tazobactam. Repeat the urine culture since the current culture just shows mixed organisms. Continue Protonix for stress ulcer prophylaxis HANNY hose and SCDs for DVT prophylaxis Aleksander Machado MD Dec 14, 2017 11:37
[2017-12-14] MEDS: ACETAMINOPHEN 325 MG TAB PO PRN (12:38)
[2017-12-15] VITALS (27 sets, daily range): BP systolic 145–173; BP diastolic 64–81; PULSE 52–88; RESP 16–21; TEMP 99–101; O2SAT 92–100
[2017-12-15] MEDS: DEXT 5%-NACL 0.9% 1000 ML INJ 1,000 ML IV SCH ×2 (00:47→21:20)
[2017-12-15] MEDS: METOPROLOL TARTRATE 25 MG TAB PO SCH ×3 (00:48→17:20)
[2017-12-15] MEDS: PIPERACIL-TAZO 3.375 GM PREMIX 50 ML IV SCH (05:23)
[2017-12-15] MEDS: NYSTATIN SUSP 500,000 U/5 ML CUP SWISH-SWAL SCH ×4 (08:03→20:50)
[2017-12-15] MEDS: GABAPENTIN 300 MG CAP PO SCH ×2 (08:03→20:50)
[2017-12-15] MEDS: DOXAZOSIN MESYLATE 2 MG TAB PO SCH (08:04)
[2017-12-15] MEDS: SODIUM CHLORIDE 0.9% FLUSH 10 ML FLUSH IV FLUSH SCH ×2 (08:04→20:48)
[2017-12-15 09:59] LABS: RPR SCREEN FOR REFLEX NON-REACTIVE (NON-REACTVE)
[2017-12-15 10:50] LABS: BIOAVAILABLE TESTOSTERONE 0.9 ng/dL; FREE TESTOSTERONE 0.18 ng/dL (3.08-11.3); PROLACTIN <1.0 ng/mL (4.0 - 15.2); TOTAL TESTOSTERONE 7.1 ng/dL (240-950)
--- NOTE | 2017-12-15 12:23 | PD.WCN.NOT ---
Wound Consult Description: Consult for wound management of left buttock per Dr Armenta. Communicated with: Dr Dent Recommendation: Calazime skin protectant to open partial thickness skinloss areas BID and PRN with each cleansing. Continue to turn the patient and reposition him Q2H to relieve pressure. PLEASE USE disposable ultrasorb underpads for incontinence and moisture. PLEASE DO NOT USE cotton underpads underneath the patient for moisture related wounds. Additional Information: Patient seen on [facility] for wound assessment of left buttock per Dr Armenta. Patient was positioned to his right side for assessment. Brief was removed along with cotton underpad. Sacrum, coccyx, gluteal cleft and bilateral buttocks were visualized. Left buttock is unremarkable. Three partial thickness skin loss areas were noted, one in the gluteal cleft and two on the right buttock. Gluteal cleft partial thickness fissure measured1.1cm x 0.2cm x <0.1cm of 100% red moist non granulating tissue with jagged wound margins. Periwound is noted with circumferential cellulitic intact tissue. Right inner buttock skin tear measured 0.6cm x 0.2cm x <0.1cm of 100% red moist non granulating tissue with jagged wound margins. Right buttock partial thickness skin tear measured 2.1cm x 1.5cm x <0.1cm of 100% red moist non granulating tissue. Wounds had no drainage nor odor noted. Wounds present as moisture and friction etiology. Calazime was applied in a thick layer and all cotton underpads were removed from underneath patient. Moisture wicking underpads were placed in a staggered fashion underneath patient for moisture. Patient was repositioned off his back side by placing a pillow underneath his right side prior to leaving patient bedside. [facility] Dec 15, 2017 12:23
[2017-12-15] MEDS ORDERED: RESP: ALBUTEROL 2.5 MG/IPRATROPIUM 0.5 MG NEB (SCH) NEB ONE (13:00)
--- NOTE | 2017-12-15 15:57 | HHI.IDPN ---
Note Infectious Disease Note Patient is sleepy. He had physical therapy today. Response to me appropriately but drifts back to sleep. His daughter is at bedside. She reports that he was upright in bed and ate. Low-grade fever yesterday. Temperature is lower today. CSF cultures are negative. Presented with altered mental status. The patient's notes that he was having difficulty with ambulation and he fell at home. He was initially brought to [facility] ED and then over to [facility]. He was evaluated on 12/08/2017. The patient apparently was having headache and dizziness for 2 days. When he first arrived, he was noted to be closing his eyes during the interview and that he was a poor historian. He also was noted to have a high systolic blood pressure. She notes that he had complained of headaches off and on, but that he had at most sustained headaches for a couple days before admission and that he was starting to develop dizziness. She also reports that he was having frequent urination, although he wears a diaper. PAST MEDICAL HISTORY: Hypertension. Noted to be on chronic anticoagulation which reportedly started within the recent weeks. ALLERGIES: No known drug allergies. MEDICATIONS: Current Medications Medications (Trade) Dose Ordered Sig/Karli Route PRN Reason Start Time Stop Time Status Last Admin Dose Admin Sodium Chloride (NS Flush) 2 ml UNSCH PRN IV FLUSH FLUSH AFTER USING IV ACCESS 12/08/17 15:45 Sodium Chloride (NS Flush) 2 ml BID IV FLUSH 12/08/17 21:00 12/14/17 08:37 Amlodipine Besylate (Norvasc) 10 mg DAILY PO 12/09/17 09:00 12/15/17 08:03 Gabapentin (Neurontin) 300 mg BID PO 12/08/17 21:00 12/15/17 08:03 Hydralazine HCl (Apresoline Inj) 10 mg Q30M PRN IV PUSH bp>160/70 12/08/17 20:45 12/13/17 18:06 Acetaminophen (Tylenol) 650 mg Q6HR PRN PO headache/fever/pain1-4 12/09/17 15:15 12/14/17 12:38 Doxazosin Mesylate (Cardura) 2 mg DAILY PO 12/10/17 09:00 12/15/17 08:04 Labetalol HCl (Trandate Inj) 10 mg Q6H PRN IV PUSH SYS BP GREATER THAN 170 MMHG 12/09/17 16:15 12/13/17 18:49 Acetaminophen (Tylenol Supp) 650 mg Q6H PRN RECTAL fever 12/10/17 04:45 12/12/17 01:32 Piperacillin Sod/ Tazobactam Sod 50 ml @ 100 mls/hr Q8H IV 12/10/17 14:00 12/15/17 05:23 Dextrose/Sodium Chloride 1,000 ml @ 50 mls/hr Q20H IV 12/11/17 08:30 12/15/17 00:47 Nystatin (Mycostatin Liq) 5 ml QID SWISH-SWAL 12/11/17 13:00 12/15/17 08:03 Metoprolol Tartrate (Lopressor) 25 mg Q8H PO 12/12/17 16:00 12/15/17 08:03 Clonidine (Catapres) 0.1 mg Q6H PRN PO SBP>160, DBP>90 12/12/17 15:45 12/14/17 08:51 SOCIAL HISTORY: The patient was born in [place]. Positive tobacco use, 1 pack a day. No alcohol. No illicit drugs. The patient is . Objective: Vital Signs Date Time Temp Pulse Resp B/P (MAP) Pulse Ox O2 Delivery O2 Flow Rate FiO2 12/15/17 13:16 98 Nasal Cannula 2.00 12/15/17 12:23 75 12/15/17 12:00 75 12/15/17 11:34 99.7 78 16 153/67 (95) 100 12/15/17 11:00 74 12/15/17 10:00 72 12/15/17 09:00 70 12/15/17 08:01 99.2 76 20 147/64 (91) 92 12/15/17 08:00 81 12/15/17 07:00 74 12/15/17 06:00 76 12/15/17 05:00 76 12/15/17 04:00 80 12/15/17 03:05 99.0 81 20 157/80 (105) 98 12/15/17 03:00 80 12/15/17 02:00 78 12/15/17 01:00 88 12/15/17 00:00 86 12/14/17 23:45 99.8 87 20 151/77 (101) 99 12/14/17 23:00 86 12/14/17 22:00 84 12/14/17 21:00 84 12/14/17 20:00 86 12/14/17 19:50 99.6 85 20 159/82 (107) 99 12/14/17 19:00 75 12/14/17 18:00 76 12/14/17 17:00 78 12/14/17 16:00 80 12/14/17 15:55 100.0 80 22 139/68 (91) 98 Laboratory Tests Test 12/14/17 10:48 White Blood Count 6.1 TH/MM3 Red Blood Count 3.66 MIL/MM3 Hemoglobin 10.3 GM/DL Hematocrit 31.4 % Mean Corpuscular Volume 85.7 FL Mean Corpuscular Hemoglobin 28.1 PG Mean Corpuscular Hemoglobin Concent 32.8 % Red Cell Distribution Width 13.9 % Platelet Count 272 TH/MM3 Mean Platelet Volume 7.1 FL Neutrophils (%) (Auto) 65.7 % Lymphocytes (%) (Auto) 18.9 % Monocytes (%) (Auto) 10.8 % Eosinophils (%) (Auto) 3.9 % Basophils (%) (Auto) 0.7 % Neutrophils # (Auto) 4.0 TH/MM3 Lymphocytes # (Auto) 1.2 TH/MM3 Monocytes # (Auto) 0.7 TH/MM3 Eosinophils # (Auto) 0.2 TH/MM3 Basophils # (Auto) 0.0 TH/MM3 CBC Comment DIFF FINAL Differential Comment Laboratory Tests Test 12/14/17 10:48 Blood Urea Nitrogen 27 MG/DL Creatinine 1.92 MG/DL Random Glucose 141 MG/DL Total Protein 7.2 GM/DL Albumin 2.7 GM/DL Calcium Level 8.9 MG/DL Alkaline Phosphatase 82 U/L Aspartate Amino Transf (AST/SGOT) 104 U/L Alanine Aminotransferase (ALT/SGPT) 68 U/L Total Bilirubin 0.3 MG/DL Sodium Level 142 MEQ/L Potassium Level 4.2 MEQ/L Chloride Level 108 MEQ/L Carbon Dioxide Level 28.9 MEQ/L Anion Gap 5 MEQ/L Estimat Glomerular Filtration Rate 42 ML/MIN B-Type Natriuretic Peptide 119 PG/ML Microbiology Date/Time Source Procedure Growth Status 12/13/17 09:08 Blood Peripheral Aerobic Blood Culture - Preliminary NO GROWTH IN 2 DAYS Resulted 12/13/17 09:08 Blood Peripheral Anaerobic Blood Culture - Preliminary NO GROWTH IN 2 DAYS Resulted 12/13/17 09:00 Blood Peripheral Aerobic Blood Culture - Preliminary NO GROWTH IN 2 DAYS Resulted 12/13/17 09:00 Blood Peripheral Anaerobic Blood Culture - Preliminary NO GROWTH IN 2 DAYS Resulted 12/13/17 13:28 Urine Clean Catch Urine Culture - Final NO GROWTH IN 48 HOURS. Complete Imaging: Chest X-Ray 12/13/17 0600 Signed Impressions: Service Date/Time: Wednesday, December 13, 2017 04:20 - CONCLUSION: 1. Cardiomegaly and findings of vascular congestion without overt failure. This is new when compared with the prior exam. Kaushik Lal MD Lumbar Puncture Fluoroscopy 12/11/17 0000 Signed Impressions: Service Date/Time: November 11:03 - CONCLUSION: Uncomplicated fluoroscopically guided lumbar puncture with pressures as above. Michael Eisenberg MD Head CT 12/10/17 0000 Signed Impressions: Service Date/Time: Sunday, December 10, 2017 12:58 - CONCLUSION: 1. Sellar/suprasellar mass which has been described on recent studies including MRI of the brain. 2. Stable cerebral atrophy and moderate periventricular/subcortical white matter small vessel ischemic changes bilaterally. 3. 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 4. No acute infarct, acute hemorrhage, midline shift or extra-axial bleed. Thien Elkins MD Chest X-Ray 12/10/17 0000 Signed Impressions: Service Date/Time: Sunday, December 10, 2017 13:30 - CONCLUSION: New parenchymal changes right base Bernardino Santo MD FACR Lower Extremity Ultrasound [id number] Signed Impressions: Service Date/Time: Friday, December 08, 2017 18:53 - CONCLUSION: Normal examination. Manuel Perez MD Brain MRI [id number] Signed Impressions: Service Date/Time: Friday, December 08, 2017 21:51 - CONCLUSION: 1. 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 This is of mixed signal intensity. No definite enhancement. 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 Followup study in 3 months recommended for stability. 2. Cerebral atrophy with old bilateral basal ganglia lacunar infarcts. 3. The Sean Rodriguez MD PHYSICAL EXAMINATION: GENERAL: No acute distress. HEENT: The head reveals mild ecchymosis at the superior orbital region at the right frontal aspect of the head and also at the area below the right orbit. Extraocular movements appear grossly intact. Pupils reactive to light. No icterus. Oropharynx : Positive thrush. No other lesions. Mucosa was slightly dry. NECK: Supple without adenopathy or swelling. LUNGS: Decreased breath sounds. HEART: Regular S1, S2, without murmurs, rubs or gallops. ABDOMEN: Bowel sounds diminished but present. Soft, no tenderness appreciated. EXTREMITIES: No clubbing, no cyanosis, no edema. SKIN: No diffuse rash. NEUROLOGIC: No gross focal finding. He moves all extremities. PSYCHIATRIC: Calm and cooperative. IMPRESSION: 1. Fever and abnormal urinalysis in a patient presenting with headache and dizziness. Also abnormal chest x-ray. Urine culture unremarkable. 2. Lumbar puncture revealing 3 white cells in tube #4 and normal glucose with elevated protein. Does not appear to have central nervous system infection. 3. Abnormality on MRI. The patient with known pituitary mass. This is felt to be a pituitary adenoma. 4. Pneumonia based on abnormal chest x-ray with parenchymal changes at the right base. However, the patient does not appear to be coughing or producing sputum and possibly this could be from aspiration. 5. Acute renal disease based on chemistry studies. 6. Fever. No infection versus medication. Possible antibiotic associated. RECOMMENDATIONS: 1. Stop piperacillin/tazobactam and monitor the temperature. If the fever Recurs or persist, consider additional workup for potential noninfectious cause. 2. Monitor temperature. 3. Monitor clinical status. Ghulam Ascencio MD Dec 15, 2017 15:57
[2017-12-15] MEDS: ACETAMINOPHEN 325 MG TAB PO PRN (17:20)
--- NOTE | 2017-12-15 20:46 | HHI.PR ---
Subjective Remarks Patient is lying in bed with his eyes closed but awake, he is able to answer yes and no questions today. Objective Vitals Vital Signs Date Time Temp Pulse Resp B/P (MAP) Pulse Ox O2 Delivery O2 Flow Rate FiO2 12/15/17 17:02 101.0 82 18 173/81 (111) 98 12/15/17 16:16 77 12/15/17 13:16 98 Nasal Cannula 2.00 12/15/17 12:23 75 12/15/17 12:00 75 12/15/17 11:34 99.7 78 16 153/67 (95) 100 12/15/17 11:00 74 12/15/17 10:00 72 12/15/17 09:00 70 12/15/17 08:01 99.2 76 20 147/64 (91) 92 12/15/17 08:00 81 12/15/17 07:00 74 12/15/17 06:00 76 12/15/17 05:00 76 12/15/17 04:00 80 12/15/17 03:05 99.0 81 20 157/80 (105) 98 12/15/17 03:00 80 12/15/17 02:00 78 12/15/17 01:00 88 12/15/17 00:00 86 12/14/17 23:45 99.8 87 20 151/77 (101) 99 12/14/17 23:00 86 12/14/17 22:00 84 12/14/17 21:00 84 I/O 12/14/17 12/14/17 12/14/17 12/15/17 12/15/17 12/15/17 07:00 15:00 23:00 07:00 15:00 23:00 Intake Total 1100 ml 50 ml 1200 ml 640 ml 700 ml Output Total 400 ml 700 ml 1000 ml 700 ml Balance 700 ml 50 ml 500 ml -360 ml 0 ml Intake Oral 100 ml 550 ml 240 ml 700 ml IV Total 1000 ml 50 ml 650 ml 400 ml Output Urine Total 400 ml 700 ml 1000 ml 700 ml # Voids 1 # Bowel Movements 2 2 1 2 Result Diagram: 12/14/17 1048 12/14/17 1048 Objective Remarks GENERAL: Patient is lying on his back in bed with his eyes closed although he is awake. SKIN: Warm and dry. HEAD: Normocephalic. EYES: No scleral icterus. No injection or drainage. NECK: Supple, trachea midline. No JVD or lymphadenopathy. CARDIOVASCULAR: Regular rate and rhythm 1/6 THOR, gallops, or rubs. RESPIRATORY: Breath sounds equal bilaterally. No accessory muscle use. GASTROINTESTINAL: Abdomen soft, non-tender, nondistended. EXTREMITIES: No cyanosis, or edema. NEUROLOGICAL: Awake, alert, and oriented x 3. Non-focal. Procedures 12/11- LP A/P Assessment and Plan Sepsis with encephalopathy Urinary tract Infection- Pyuria, but culture negative Lung infiltrate possible aspiration Lumbar Puncture and Culture remain negative Blood cultures remain negative Continue coverage with Zosyn Appreciate Infectious Disease following Acute Kidney injury secondary to Sepsis Not severe, but slow to improve, continue to monitor hypertensive urgency on admission Periodic elevation Continue clonidine as needed Continue amlodipine Oral thrush Nystatin swish and swallow 4 times daily sellar mass with visual disturbance/ dizziness/ falls chronic anticoagulation on coumadin - INR 1.1 on admission Appreciate neurology following Deconditining- generalized weakness- Needs total assistance We will need [facility] on discharge Left buttock wound Appreciate wound care team consult Moderate skin thickness ulcer Calamine lotion recommended DVT Prophylaxis Angelo Villarreal MD Dec 15, 2017 20:46
[2017-12-16] VITALS (16 sets, daily range): BP systolic 124–173; BP diastolic 55–78; PULSE 69–85; RESP 16–20; TEMP 97.6–101.3; O2SAT 94–100
[2017-12-16] MEDS: METOPROLOL TARTRATE 25 MG TAB PO SCH ×3 (00:17→16:16)
[2017-12-16] MEDS: ACETAMINOPHEN 650 MG SUPP RECTAL PRN (05:23)
[2017-12-16] MEDS: LABETALOL HCL 100 MG/20 ML VIAL IV PUSH PRN (05:24)
[2017-12-16] MEDS: SODIUM CHLORIDE 0.9% FLUSH 10 ML FLUSH IV FLUSH SCH ×2 (08:58→20:07)
[2017-12-16] MEDS: GABAPENTIN 300 MG CAP PO SCH ×2 (09:00→19:54)
[2017-12-16] MEDS: NYSTATIN SUSP 500,000 U/5 ML CUP SWISH-SWAL SCH ×4 (09:34→19:54)
[2017-12-16] MEDS: DOXAZOSIN MESYLATE 2 MG TAB PO SCH (09:36)
--- NOTE | 2017-12-16 12:14 | HHI.IDPN ---
Note Infectious Disease Note Patient is somnolent. Answers my questions with short answers. "I feel okay". Appears lethargic. Not open his eyes. Denies aches or pains. Had temperature of 101 yesterday. Denies headache. is at bedside. She states that he had a good night sleep last night. Swallow eval revealed no abnormality. Presented with altered mental status. The patient's notes that he was having difficulty with ambulation and he fell at home. He was initially brought to [facility] ED and then over to [facility]. He was evaluated on 12/08/2017. The patient apparently was having headache and dizziness for 2 days. When he first arrived, he was noted to be closing his eyes during the interview and that he was a poor historian. He also was noted to have a high systolic blood pressure. She notes that he had complained of headaches off and on, but that he had at most sustained headaches for a couple days before admission and that he was starting to develop dizziness. She also reports that he was having frequent urination, although he wears a diaper. PAST MEDICAL HISTORY: Hypertension. Noted to be on chronic anticoagulation which reportedly started within the recent weeks. ALLERGIES: No known drug allergies. MEDICATIONS: Current Medications Medications (Trade) Dose Ordered Sig/Karli Route PRN Reason Start Time Stop Time Status Last Admin Dose Admin Sodium Chloride (NS Flush) 2 ml UNSCH PRN IV FLUSH FLUSH AFTER USING IV ACCESS 12/08/17 15:45 Sodium Chloride (NS Flush) 2 ml BID IV FLUSH 12/08/17 21:00 12/14/17 08:37 Amlodipine Besylate (Norvasc) 10 mg DAILY PO 12/09/17 09:00 12/16/17 09:34 Gabapentin (Neurontin) 300 mg BID PO 12/08/17 21:00 12/15/17 20:50 Hydralazine HCl (Apresoline Inj) 10 mg Q30M PRN IV PUSH bp>160/70 12/08/17 20:45 18 18:06 Acetaminophen (Tylenol) 650 mg Q6HR PRN PO headache/fever/pain1-4 12/09/17 15:15 12/15/17 17:20 Doxazosin Mesylate (Cardura) 2 mg DAILY PO 12/10/17 09:00 12/16/17 09:36 Labetalol HCl (Trandate Inj) 10 mg Q6H PRN IV PUSH SYS BP GREATER THAN 170 MMHG 12/09/17 16:15 12/16/17 05:24 Acetaminophen (Tylenol Supp) 650 mg Q6H PRN RECTAL fever 12/10/17 04:45 12/16/17 05:23 Dextrose/Sodium Chloride 1,000 ml @ 50 mls/hr Q20H IV 12/11/17 08:30 12/15/17 21:20 Nystatin (Mycostatin Liq) 5 ml QID SWISH-SWAL 12/11/17 13:00 12/16/17 09:34 Metoprolol Tartrate (Lopressor) 25 mg Q8H PO 12/12/17 16:00 12/16/17 09:34 Clonidine (Catapres) 0.1 mg Q6H PRN PO SBP>160, DBP>90 12/12/17 15:45 12/14/17 08:51 SOCIAL HISTORY: The patient was [place]. Positive tobacco use, 1 pack a day. No alcohol. No illicit drugs. The patient is . Objective: Vital Signs Date Time Temp Pulse Resp B/P (MAP) Pulse Ox O2 Delivery O2 Flow Rate FiO2 12/16/17 11:00 75 12/16/17 08:29 99.9 77 18 165/66 (99) 95 12/16/17 07:00 76 12/16/17 06:23 18 12/16/17 06:00 71 12/16/17 05:00 84 12/16/17 04:45 100.7 85 16 173/78 (109) 100 12/16/17 04:01 85 12/16/17 03:00 82 12/16/17 02:00 84 12/16/17 01:00 84 12/16/17 00:02 79 12/15/17 23:20 99.0 82 20 145/69 (94) 96 12/15/17 23:00 82 12/15/17 22:00 80 12/15/17 21:00 76 12/15/17 20:55 99.5 77 21 160/70 (100) 98 12/15/17 20:06 77 12/15/17 19:00 78 12/15/17 17:02 101.0 82 18 173/81 (111) 98 12/15/17 16:16 77 12/15/17 13:16 98 Nasal Cannula 2.00 12/15/17 12:23 75 Microbiology Date/Time Source Procedure Growth Status 12/13/17 13:28 Urine Clean Catch Urine Culture - Final NO GROWTH IN 48 HOURS. Complete Imaging: Lumbar Puncture Fluoroscopy 12/11/17 0000 Signed Impressions: Service Date/Time: November 11:03 - CONCLUSION: Uncomplicated fluoroscopically guided lumbar puncture with pressures as above. Michael Eisenberg MD Head CT 12/10/17 0000 Signed Impressions: Service Date/Time: Sunday, December 10, 2017 12:58 - CONCLUSION: 1. Sellar/suprasellar mass which has been described on recent studies including MRI of the brain. 2. Stable cerebral atrophy and moderate periventricular/subcortical white matter small vessel ischemic changes bilaterally. 3. 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 4. No acute infarct, acute hemorrhage, midline shift or extra-axial bleed. Thien Elkins MD Chest X-Ray 12/10/17 0000 Signed Impressions: Service Date/Time: Sunday, December 10, 2017 13:30 - CONCLUSION: New parenchymal changes right base Bernardino Santo MD FACR Lower Extremity Ultrasound [id number]/08/171907 Signed Impressions: Service Date/Time: Friday, December 08, 2017 18:53 - CONCLUSION: Normal examination. Manuel Perez MD Brain MRI [id number]/08/[id number] Signed Impressions: Service Date/Time: Friday, December 08, 2017 21:51 - CONCLUSION: 1. 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 This is of mixed signal intensity. No definite enhancement. 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 Followup study in 3 months recommended for stability. 2. Cerebral atrophy with old bilateral basal ganglia lacunar infarcts. 3. The Sean Rodriguez MD PHYSICAL EXAMINATION: GENERAL: No acute distress. Somnolent. HEENT: The head reveals mild ecchymosis at the superior orbital region at the right frontal aspect of the head and also at the area below the right orbit. Extraocular movements appear grossly intact. Pupils reactive to light. No icterus. Oropharynx : Moist mucosa. NECK: Supple without adenopathy or swelling. LUNGS: Decreased breath sounds. HEART: Regular S1, S2, without murmurs, rubs or gallops. ABDOMEN: Bowel sounds diminished but present. Soft, no tenderness. EXTREMITIES: No clubbing, no cyanosis, no edema. SKIN: No diffuse rash. NEUROLOGIC: No gross focal finding. He moves all extremities. Decreased strength. PSYCHIATRIC: Calm and cooperative. IMPRESSION: 1. Fever and abnormal urinalysis in a patient presenting with headache and dizziness. Also abnormal chest x-ray. Continues to have fever. The piperacillin/tazobactam was discontinued yesterday. Fever probably not infection related. Rule out autoimmune disease. 2. Lumbar puncture revealed 3 white cells in tube #4 and normal glucose with elevated protein. Does not appear to have central nervous system infection. CSF culture is negative. 3. Abnormality on MRI. The patient with known pituitary mass. This is felt to be a pituitary adenoma. 4. Pneumonia based on abnormal chest x-ray with parenchymal changes at the right base. However, the patient does not appear to be coughing or producing sputum and possibly this could be from aspiration. 5. Acute renal disease. It appears that changes in the spinal fluid may not reflect infection. However, we should continue to monitor the Gram's stain and culture from the CSF. RECOMMENDATIONS: 1. Obtain sedimentation rate, CURTIS, rheumatoid factor. 2. Repeat the chest x-ray. 3. Monitor temperature. 4. Follow the urine culture. 5. Monitor clinical status. 6. Continue to monitor the patient's clinical response. The temperature could also be slow to improve since the piperacillin/tazobactam was just discontinued yesterday. Continue to follow temperature without antibiotics. Ghulam Ascencio MD Dec 16, 2017 12:14
[2017-12-16 13:31] LABS: RHEUMATOID FACTOR SCREEN NEGATIVE (NEGATIVE)
--- NOTE | 2017-12-16 13:49 | RADRPT ---
EXAM DATE/TIME: 12/16/2017 12:59 [place] COMPARISON: CHEST SINGLE AP, December 10, 2017, 13:30. CHEST SINGLE AP, December 13, 2017, 4:20. INDICATIONS : Short of breath. Pneumonia per order. MEDICAL HISTORY : Hypertension. SURGICAL HISTORY : None. ENCOUNTER: Subsequent ACUITY: 3 days PAIN SCORE: 0/10 LOCATION: Bilateral chest FINDINGS: There is prominence of the central pulmonary vasculature. No new focal pleural or parenchymal opaciti es. The cardiomediastinal contours are stable. Remainder of the exam is unchanged. CONCLUSION: 1. Stable mild pulmonary vascular congestion. 2. No significant interval change. Michael Eisenberg MD on December 16, 2017 at 13:45 Board Certified Radiologist. This report was verified electronically.
--- NOTE | 2017-12-16 15:26 | HHI.PR ---
Subjective Remarks Patient is able to awaken and answer questions but he quickly falls asleep again. His is at bedside and provides a history that he has become gradually weak over the last few months. Objective Vitals Vital Signs Date Time Temp Pulse Resp B/P (MAP) Pulse Ox O2 Delivery O2 Flow Rate FiO2 12/16/17 12:07 100.1 76 20 124/55 (78) 99 12/16/17 11:00 75 12/16/17 08:29 99.9 77 18 165/66 (99) 95 12/16/17 07:00 76 12/16/17 06:23 18 12/16/17 06:00 71 12/16/17 05:00 84 12/16/17 04:45 100.7 85 16 173/78 (109) 100 12/16/17 04:01 85 12/16/17 03:00 82 12/16/17 02:00 84 12/16/17 01:00 84 12/16/17 00:02 79 12/15/17 23:20 99.0 82 20 145/69 (94) 96 12/15/17 23:00 82 12/15/17 22:00 80 12/15/17 21:00 76 12/15/17 20:55 99.5 77 21 160/70 (100) 98 12/15/17 20:06 77 12/15/17 19:00 78 12/15/17 17:02 101.0 82 18 173/81 (111) 98 12/15/17 16:16 77 I/O 12/15/17 12/15/17 12/15/17 12/16/17 12/16/17 12/16/17 07:00 15:00 23:00 07:00 15:00 23:00 Intake Total 640 ml 940 ml 405 ml Output Total 1000 ml 700 ml 1050 ml Balance -360 ml 240 ml -645 ml Intake Oral 240 ml 940 ml IV Total 400 ml 405 ml Output Urine Total 1000 ml 700 ml 1050 ml # Bowel Movements 1 2 2 Result Diagram: 12/14/17 1048 12/14/17 1048 Objective Remarks GENERAL: Patient is lying on his back in bed with his eyes closed although he is awake. SKIN: Warm and dry. HEAD: Normocephalic. EYES: No scleral icterus. No injection or drainage. NECK: Supple, trachea midline. No JVD or lymphadenopathy. CARDIOVASCULAR: Regular rate and rhythm 1/6 THOR, gallops, or rubs. RESPIRATORY: Breath sounds equal bilaterally. No accessory muscle use. GASTROINTESTINAL: Abdomen soft, non-tender, nondistended. EXTREMITIES: No cyanosis, or edema. NEUROLOGICAL: Awake, alert, and oriented x 3. Non-focal. Procedures 12/11- LP A/P Assessment and Plan Sepsis with encephalopathy Urinary tract Infection- Pyuria, but culture negative Lung infiltrate possible aspiration Lumbar Puncture and Culture remain negative Blood cultures remain negative Continue coverage with Zosyn Appreciate Infectious Disease following Hypotestosteronism Total testosterone was 7.1 (normal begins at 240) This could be part of the picture of his chronic fatigue Standard testosterone dose ordered IM to be given today We will follow symptomatically Acute Kidney injury secondary to Sepsis Not severe, but slow to improve, continue to monitor Intermittent hypertensive urgency Continue clonidine as needed Continue amlodipine Oral thrush Nystatin swish and swallow 4 times daily sellar mass with visual disturbance/ dizziness/ falls chronic anticoagulation on coumadin - INR 1.1 on admission Appreciate neurology following Generalized Weakness (deconditioning) Beginning treatment for hypotestosteronism We will need custodial rehab on discharge Left buttock wound Appreciate wound care team consult Moderate skin thickness ulcer Calamine lotion recommended DVT Prophylaxis Angelo Villarreal MD Dec 16, 2017 15:26
[2017-12-16] MEDS ORDERED: TESTOSTERONE CYPIONATE IN OIL 200 MG/ML VIAL IM SCH (16:00)
[2017-12-16] MEDS: DEXT 5%-NACL 0.9% 1000 ML INJ 1,000 ML IV SCH (16:39)
[2017-12-16] MEDS: ACETAMINOPHEN 325 MG TAB PO PRN (16:40)
--- NOTE | 2017-12-16 17:01 | HHI.PR ---
Subjective Remarks The labs on his pitutiary work up are back. Of importance his Cortisol is normal in the morning and his IGF-1 is also within reference range. He has a virtually undetectable prolactin level as well as a picture consistent with secondary and/or tertiary hypogonadism which I suspect is at least in part due to his systemic acute illness with a possible component of his pituitary tumor. A testosterone injection has been ordered for this evening. Otherwise per conversation with his he seems to have been sleeping allot before his admission as well. She feels he has been doing somewhat better now. Objective Vital Signs Date Time Temp Pulse Resp B/P (MAP) Pulse Ox O2 Delivery O2 Flow Rate FiO2 12/16/17 16:20 101.3 80 16 157/71 (99) 97 12/16/17 15:00 82 12/16/17 12:07 100.1 76 20 124/55 (78) 99 12/16/17 11:00 75 12/16/17 08:29 99.9 77 18 165/66 (99) 95 12/16/17 07:00 76 12/16/17 06:23 18 12/16/17 06:00 71 12/16/17 05:00 84 12/16/17 04:45 100.7 85 16 173/78 (109) 100 12/16/17 04:01 85 12/16/17 03:00 82 12/16/17 02:00 84 12/16/17 01:00 84 12/16/17 00:02 79 12/15/17 23:20 99.0 82 20 145/69 (94) 96 12/15/17 23:00 82 12/15/17 22:00 80 12/15/17 21:00 76 12/15/17 20:55 99.5 77 21 160/70 (100) 98 12/15/17 20:06 77 12/15/17 19:00 78 12/15/17 17:02 101.0 82 18 173/81 (111) 98 I/O 12/15/17 12/15/17 12/15/17 12/16/17 12/16/17 12/16/17 07:00 15:00 23:00 07:00 15:00 23:00 Intake Total 640 ml 940 ml 405 ml Output Total 1000 ml 700 ml 1050 ml Balance -360 ml 240 ml -645 ml Intake Oral 240 ml 940 ml IV Total 400 ml 405 ml Output Urine Total 1000 ml 700 ml 1050 ml # Bowel Movements 1 2 2 Result Diagram: 12/14/17 1048 12/14/17 1048 Other Results laboratory results from his pituitary have been reviewed and are in the chart. Objective Remarks Patient is asleep in bed. He has 2 visitors in the room. History was obtained from his . 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 Mental status changes History of Headaches At this point I do not feel his symptoms are related to his testosterone levels nor the pituitary mass. 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 In his case seen the significant results I do recommend we do repeat his labs. Otherwise seen his history of systemic anticoagulation at home as well as the risk of DVT with testosterone treatment I have taken the liberty to stop the testosterone injection that was ordered and will repeat his labs first. In case necessary I will recommend transdermal testosterone replacement as a preferable option and will also obtain his PSA level now prior to starting this. Overall one would not expect his mental status changes or this severe fatigue to be solely due to his hypogonadism assuming this is true and how much improvement will be achieved remains to be seen. Otherwise weaning him of testosterone in the future to reevaluate him will be more achievable if he was to be on transdermal testosterone. Will follow. Recommend to continue with the supportive care he has been receiving at this point. I have discussed the findings and differential with his today. I have asked the RN to not give the testosterone and have also taken the liberty to stop the order. I will also repeat his Prolactin level seen this was undetectable on his first blood draw. In case of stalk compression alone one would expect the opposite. Will follow. Edmar Perez MD Dec 16, 2017 17:01
[2017-12-17] VITALS (11 sets, daily range): BP systolic 127–165; BP diastolic 71–78; PULSE 69–87; RESP 16–20; TEMP 98–101.4; O2SAT 95–99
[2017-12-17] MEDS: METOPROLOL TARTRATE 25 MG TAB PO SCH ×3 (00:30→17:19)
[2017-12-17] MEDS: ACETAMINOPHEN 325 MG TAB PO PRN (00:36)
[2017-12-17] MEDS: SODIUM CHLORIDE 0.9% FLUSH 10 ML FLUSH IV FLUSH SCH ×2 (09:00→22:54)
[2017-12-17] MEDS: DOXAZOSIN MESYLATE 2 MG TAB PO SCH (09:26)
[2017-12-17] MEDS: GABAPENTIN 300 MG CAP PO SCH ×2 (09:26→22:54)
[2017-12-17] MEDS: NYSTATIN SUSP 500,000 U/5 ML CUP SWISH-SWAL SCH ×4 (09:26→22:53)
[2017-12-17 11:12] LABS: LUTEINIZING HORMONE 0.7 mIU/mL (1.2-10.6)
[2017-12-17] MEDS ORDERED: REMOVE OLD CATAPRES (CLONIDINE) PATCH T-DERMAL SCH (13:00)
--- NOTE | 2017-12-17 14:40 | HHI.IDPN ---
Note Infectious Disease Note . Patient continues to be somnolent and lethargic. He does not open his eyes when I call his name. His breathing appears slightly labored. He is on oxygen via nasal O2. Still having fever. I am able to get him to squeeze my hands which he does on both sides. Opens his mouth when asked him to. Has chewing motions with the mouth. The sedimentation rate is elevated. CURTIS negative. Rheumatoid factor negative. RN reports that he has been sleeping all day. Presented with altered mental status. The patient's notes that he was having difficulty with ambulation and he fell at home. He was initially brought to [facility] ED and then over to [facility]. He was evaluated on 12/08/2017. The patient apparently was having headache and dizziness for 2 days. When he first arrived, he was noted to be closing his eyes during the interview and that he was a poor historian. He also was noted to have a high systolic blood pressure. She notes that he had complained of headaches off and on, but that he had at most sustained headaches for a couple days before admission and that he was starting to develop dizziness. She also reports that he was having frequent urination, although he wears a diaper. PAST MEDICAL HISTORY: Hypertension. Noted to be on anticoagulation which reportedly started within the recent weeks. ALLERGIES: No known drug allergies. MEDICATIONS: Current Medications Medications (Trade) Dose Ordered Sig/Karli Route PRN Reason Start Time Stop Time Status Last Admin Dose Admin Sodium Chloride (NS Flush) 2 ml UNSCH PRN IV FLUSH FLUSH AFTER USING IV ACCESS 12/08/17 15:45 Sodium Chloride (NS Flush) 2 ml BID IV FLUSH 12/08/17 21:00 12/14/17 08:37 Amlodipine Besylate (Norvasc) 10 mg DAILY PO 12/09/17 09:00 12/17/17 09:26 Gabapentin (Neurontin) 300 mg BID PO 12/08/17 21:00 12/17/17 09:26 Hydralazine HCl (Apresoline Inj) 10 mg Q30M PRN IV PUSH bp>160/70 12/08/17 20:45 12/13/17 18:06 Acetaminophen (Tylenol) 650 mg Q6HR PRN PO headache/fever/pain1-4 12/09/17 15:15 12/17/17 00:36 Doxazosin Mesylate (Cardura) 2 mg DAILY PO 12/10/17 09:00 12/17/17 09:26 Labetalol HCl (Trandate Inj) 10 mg Q6H PRN IV PUSH SYS BP GREATER THAN 170 MMHG 12/09/17 16:15 12/16/17 05:24 Acetaminophen (Tylenol Supp) 650 mg Q6H PRN RECTAL fever 12/10/17 04:45 12/16/17 05:23 Dextrose/Sodium Chloride 1,000 ml @ 50 mls/hr Q20H IV 12/11/17 08:30 12/16/17 16:39 Nystatin (Mycostatin Liq) 5 ml QID SWISH-SWAL 12/11/17 13:00 12/17/17 12:33 Metoprolol Tartrate (Lopressor) 25 mg Q8H PO 12/12/17 16:00 12/17/17 09:27 Clonidine (Catapres) 0.1 mg Q6H PRN PO SBP>160, DBP>90 12/12/17 15:45 12/14/17 08:51 SOCIAL HISTORY: The patient was born in [place]. Positive tobacco use, 1 pack a day. No alcohol. No illicit drugs. The patient is . Objective: Vital Signs Date Time Temp Pulse Resp B/P (MAP) Pulse Ox O2 Delivery O2 Flow Rate FiO2 12/16/17 11:00 75 12/16/17 08:29 99.9 77 18 165/66 (99) 95 12/16/17 07:00 76 12/16/17 06:23 18 12/16/17 06:00 71 12/16/17 05:00 84 12/16/17 04:45 100.7 85 16 173/78 (109) 100 12/16/17 04:01 85 12/16/17 03:00 82 12/16/17 02:00 84 12/16/17 01:00 84 12/16/17 00:02 79 12/15/17 23:20 99.0 82 20 145/69 (94) 96 12/15/17 23:00 82 12/15/17 22:00 80 12/15/17 21:00 76 12/15/17 20:55 99.5 77 21 160/70 (100) 98 12/15/17 20:06 77 12/15/17 19:00 78 12/15/17 17:02 101.0 82 18 173/81 (111) 98 12/15/17 16:16 77 12/15/17 13:16 98 Nasal Cannula 2.00 12/15/17 12:23 75 Laboratory Tests Test 12/16/17 12:38 Erythrocyte Sedimentation Rate 96 mm/hr Laboratory Tests Test 12/17/17 10:15 Follicle Stimulating Hormone 2.5 mIU/mL Luteinizing Hormone 0.7 mIU/mL Microbiology Date/Time Source Procedure Growth Status 12/13/17 13:28 Urine Clean Catch Urine Culture - Final NO GROWTH IN 48 HOURS. Complete Imaging: Last 48 hours Impressions Chest X-Ray 12/16/17 0000 Signed Impressions: Service Date/Time: Saturday, December 16, 2017 12:59 - CONCLUSION: 1. Stable mild pulmonary vascular congestion. 2. No significant interval change. Michael Eisenberg MD Lumbar Puncture Fluoroscopy 12/11/17 0000 Signed Impressions: Service Date/Time: November 11:03 - CONCLUSION: Uncomplicated fluoroscopically guided lumbar puncture with pressures as above. Michael Eisenberg MD Head CT 12/10/17 0000 Signed Impressions: Service Date/Time: Sunday, December 10, 2017 12:58 - CONCLUSION: 1. Sellar/suprasellar mass which has been described on recent studies including MRI of the brain. 2. Stable cerebral atrophy and moderate periventricular/subcortical white matter small vessel ischemic changes bilaterally. 3. 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 4. No acute infarct, acute hemorrhage, midline shift or extra-axial bleed. Thien Elkins MD Chest X-Ray 12/10/17 0000 Signed Impressions: Service Date/Time: Sunday, December 10, 2017 13:30 - CONCLUSION: New parenchymal changes right base Bernardino Santo MD FACR Lower Extremity Ultrasound 12/08/171907 Signed Impressions: Service Date/Time: Friday, December 08, 2017 18:53 - CONCLUSION: Normal examination. Manuel Perez MD Brain MRI [id number]/08/171907 Signed Impressions: Service Date/Time: Friday, December 08, 2017 21:51 - CONCLUSION: 1. 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 This is of mixed signal intensity. No definite enhancement. 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 Followup study in 3 months recommended for stability. 2. Cerebral atrophy with old bilateral basal ganglia lacunar infarcts. 3. The Sean Rodriguez MD PHYSICAL EXAMINATION: GENERAL: No acute distress. Somnolent. HEENT: The head reveals mild ecchymosis at the superior orbital region at the right frontal aspect of the head and also at the area below the right orbit. Extraocular movements appear grossly intact. Pupils reactive to light. No icterus. Oropharynx : Moist mucosa. NECK: Supple without adenopathy or swelling. LUNGS: Decreased breath sounds. HEART: Regular S1, S2, 2/6 systolic ejection murmur at the left sternal border. No rubs. No gallops. ABDOMEN: Bowel sounds diminished but present. Soft, no tenderness. EXTREMITIES: No clubbing, no cyanosis, no edema. SKIN: No diffuse rash. NEUROLOGIC: No gross focal finding. Moves all extremities Decreased strength. PSYCHIATRIC: Calm and cooperative. IMPRESSION: 1. Fever and abnormal urinalysis in a patient presenting with headache and dizziness. Also abnormal chest x-ray. Continues to have fever. Negative workup to date. The sedimentation rate is elevated. Fever probably not infection related. Rule out autoimmune disease. 2. Lumbar puncture revealed 3 white cells in tube #4 and normal glucose with elevated protein. Does not appear to have central nervous system infection. CSF culture is negative. 3. Abnormality on MRI. The patient with known pituitary mass. This is felt to be a pituitary adenoma. 4. Pneumonia based on abnormal chest x-ray with parenchymal changes at the right base. However, the patient does not appear to be coughing or producing sputum and possibly this could be from aspiration. 5. Acute renal disease. RECOMMENDATIONS: 1. Obtain 2D echocardiogram to evaluate the heart murmur and continued fever. 2. Consider temporal artery biopsy for working up the elevated temperature in light of elevated sedimentation rate. 3. Monitor temperature. 4. Continue physical therapy. 5. Monitor clinical status. 6. Continue to hold off on antibiotics for now while monitoring the temperature. Ghulam Ascencio MD Dec 17, 2017 14:40
--- NOTE | 2017-12-17 16:22 | HHI.PR ---
Subjective Remarks Patient looks about the same as yesterday, very sleepy, able to respond and answer questions. Objective Vitals Vital Signs Date Time Temp Pulse Resp B/P (MAP) Pulse Ox O2 Delivery O2 Flow Rate FiO2 12/17/17 12:00 72 12/17/17 12:00 98.0 74 20 150/71 (97) 96 12/17/17 08:00 82 12/17/17 08:00 98.9 77 20 165/74 (104) 98 12/17/17 04:00 69 12/17/17 04:00 98.1 74 16 154/78 (103) 99 12/17/17 00:10 100.2 12/17/17 00:00 101.2 80 18 127/74 (91) 97 12/17/17 00:00 73 12/16/17 20:00 78 12/16/17 20:00 99.2 69 17 169/62 (97) 94 12/16/17 18:14 99.7 12/16/17 16:20 101.3 80 16 157/71 (99) 97 I/O 12/16/17 12/16/17 12/16/17 12/17/17 12/17/17 12/17/17 07:00 15:00 23:00 07:00 15:00 23:00 Intake Total 405 ml 1200 ml Output Total 1050 ml Balance -645 ml 1200 ml Intake Oral 1200 ml IV Total 405 ml Output Urine Total 1050 ml # Voids 6 2 # Bowel Movements 2 3 2 Result Diagram: 12/14/17 1048 12/14/17 1048 Objective Remarks GENERAL: Patient is lying on his back in bed with his eyes closed although he is awake. SKIN: Warm and dry. HEAD: Normocephalic. EYES: No scleral icterus. No injection or drainage. NECK: Supple, trachea midline. No JVD or lymphadenopathy. CARDIOVASCULAR: Regular rate and rhythm 1/6 THOR, gallops, or rubs. RESPIRATORY: Breath sounds equal bilaterally. No accessory muscle use. GASTROINTESTINAL: Abdomen soft, non-tender, nondistended. EXTREMITIES: No cyanosis, or edema. NEUROLOGICAL: Awake, alert, and oriented x 3. Non-focal. Procedures 12/11- LP A/P Assessment and Plan Sepsis with encephalopathy Urinary tract Infection- Pyuria, but culture negative Lung infiltrate possible aspiration Lumbar Puncture and Culture remain negative Blood cultures remain negative Continue coverage with Zosyn Appreciate Infectious Disease following Hypotestosteronism Total testosterone was 7.1 (normal begins at 240) This could be part of the picture of his chronic fatigue IM testosterone was held by endocrinology, further workup ordered by endocrinology We will follow symptomatically sellar mass with visual disturbance/ dizziness/ falls chronic anticoagulation on coumadin - INR 1.1 on admission Appreciate neurology following Generalized Weakness (deconditioning) We will need half-way rehab on discharge Acute Kidney injury secondary to Sepsis Not severe, but slow to improve, continue to monitor Intermittent hypertensive urgency Continue clonidine as needed Continue amlodipine Oral thrush Nystatin swish and swallow 4 times daily Left buttock wound Appreciate wound care team consult Moderate skin thickness ulcer Calamine lotion recommended DVT Prophylaxis Angelo Villarreal MD Dec 17, 2017 16:22
--- NOTE | 2017-12-17 18:35 | ECHRPT ---
Indication: CONCLUSIONS Normal left ventricular size. Severe concentric left ventricular hypertrophy. The left ventricular systolic function is hyperdynamic with an estimated ejection fraction in the ra nge of 65- 70%. Trace mitral valve regurgitation. BP: / HR: Rhythm: MEASUREMENTS (Male / Female) Normal Values Technical Quality: 2D ECHO LV Diastolic Diameter PLAX 3.2 cm 4.2 - 5.9 / 3.9 - 5.3 cm LV Systolic Diameter PLAX 2.2 cm IVS Diastolic Thickness 2.0 cm 0.6 - 1.0 / 0.6 - 0.9 cm LVPW Diastolic Thickness 1.1 cm 0.6 - 1.0 / 0.6 - 0.9 cm LV Relative Wall Thickness 1.0 RV Internal Dim ED PLAX 2.0 cm LA Systolic Diameter LX 3.4 cm 3.0 - 4.0 / 2.7 - 3.8 cm M-MODE Aortic Root Diameter MM 3.2 cm AV Cusp Separation MM 2.0 cm DOPPLER Mitral E Point Velocity 86.4 cm/s Mitral A Point Velocity 119.0 cm/s Mitral E to A Ratio 0.7 TR Peak Velocity 182.0 cm/s TR Peak Gradient 13.2 mmHg FINDINGS LEFT VENTRICLE Normal left ventricular size. Severe concentric left ventricular hypertrophy. The left ventricular systolic function is hyperdynamic with an estimated ejection fraction in the ra nge of 65- 70%. RIGHT VENTRICLE Normal right ventricular size and systolic function. LEFT ATRIUM The left atrial size is normal. RIGHT ATRIUM The right atrial size is normal. ATRIAL SEPTUM Normal atrial septal thickness without atrial level shunting by limited color doppler interrogation. AORTA The aortic root and proximal ascending aorta are normal in size on limited imaging. MITRAL VALVE Trace mitral valve regurgitation. AORTIC VALVE Trileaflet aortic valve. No aortic valve stenosis or regurgitation. TRICUSPID VALVE Structurally normal tricuspid valve. No tricuspid valve stenosis or regurgitation. PULMONARY VALVE The pulmonary valve is not well visualized. VESSELS The inferior vena cava is normal in size. PERICARDIUM No pericardial effusion. Carline Brooks MD, FACC (Electronically Signed) Final Date:17 December 2017 18:34
[2017-12-18] VITALS (13 sets, daily range): BP systolic 116–177; BP diastolic 48–85; PULSE 69–87; RESP 16–22; TEMP 98.4–100.5; O2SAT 93–99
[2017-12-18] MEDS: METOPROLOL TARTRATE 25 MG TAB PO SCH ×3 (00:57→16:00)
[2017-12-18] MEDS: cloNIDine HCL 0.1 MG TAB PO PRN (01:51)
[2017-12-18] MEDS: DEXT 5%-NACL 0.9% 1000 ML INJ 1,000 ML IV SCH (07:22)
[2017-12-18] MEDS: SODIUM CHLORIDE 0.9% FLUSH 10 ML FLUSH IV FLUSH SCH ×2 (09:00→21:00)
[2017-12-18 09:42] LABS: ALBUMIN 2.8 GM/DL (3.4-5.0); AST (GOT) 52 U/L (15-37); BICARBONATE 29.3 MEQ/L (21.0-32.0); BLOOD UREA NITROGEN 25 MG/DL (7-18); CALCIUM 9.5 MG/DL (8.5-10.1); CHLORIDE 102 MEQ/L (98-107); CREATININE 1.63 MG/DL (0.60-1.30); GLOMERULAR FILTRATION RATE 50 ML/MIN (>89); GLUCOSE,RANDOM 85 MG/DL (74-106); SODIUM (NA) 139 MEQ/L (136-145)
[2017-12-18 09:43] LABS: ALT (GPT) 65 U/L (12-78)
[2017-12-18 09:45] LABS: ALKALINE PHOSPHATASE 84 U/L (45-117); TOTAL BILIRUBIN ADULT 0.5 MG/DL (0.2-1.0); TOTAL PROTEIN 7.4 GM/DL (6.4-8.2)
[2017-12-18] MEDS: GABAPENTIN 300 MG CAP PO SCH ×2 (10:30→21:00)
[2017-12-18] MEDS: NYSTATIN SUSP 500,000 U/5 ML CUP SWISH-SWAL SCH ×4 (10:30→21:00)
[2017-12-18] MEDS: DOXAZOSIN MESYLATE 2 MG TAB PO SCH (10:30)
[2017-12-18 13:29] LABS: BASOPHIL % 0.7 % (0.0-2.0); EOSINOPHIL # 0.2 TH/MM3 (0-0.4); EOSINOPHIL % 3.4 % (0.0-4.0); HEMATOCRIT 28.2 % (39.0-51.0); HEMOGLOBIN 9.4 GM/DL (13.0-17.0); LYMPHOCYTE # 1.2 TH/MM3 (1.0-4.8); MEAN CELL VOLUME 84.4 FL (80.0-100.0); MEAN CORPUSCULAR HEMOGLOBIN 28.2 PG (27.0-34.0); MEAN CORPUSCULAR HGB CONC 33.4 % (32.0-36.0); MEAN PLATELET VOLUME 7.3 FL (7.0-11.0); MONO % 10.1 % (0.0-8.0); MONOCYTE # 0.6 TH/MM3 (0-0.9); NEUT % 65.8 % (16.0-70.0); PLATELET COUNT 429 TH/MM3 (150-450); RED BLOOD COUNT 3.35 MIL/MM3 (4.50-5.90); RED CELL DISTRIBUTION WIDTH 13.6 % (11.6-17.2); WHITE BLOOD COUNT 6.1 TH/MM3 (4.0-11.0)
--- NOTE | 2017-12-18 15:22 | HHI.IDPN ---
Note Infectious Disease Note . Patient remains very lethargic. He barely awakens for me. He continues to keep his right eye shut. When I asked him to open his right eye he is unable to do so. He awakens with much stimulation quickly goes back to sleep. His tells me that he complained of headache when he coughed. Still having fever. Workup negative to date. All cultures have been negative. 2D echocardiogram showed no vegetation. C-reactive protein is highly elevated. The sedimentation rate is elevated. CURTIS negative. Rheumatoid factor negative. His is at bedside. She notes that she has to feed him meals. Presented with altered mental status. The patient's notes that he was having difficulty with ambulation and he fell at home. He was initially brought to [facility] ED and then over to [facility]. He was evaluated on 12/08/2017. The patient apparently was having headache and dizziness for 2 days. When he first arrived, he was noted to be closing his eyes during the interview and that he was a poor historian. He also was noted to have a high systolic blood pressure. She notes that he had complained of headaches off and on, but that he had at most sustained headaches for a couple days before admission and that he was starting to develop dizziness. She also reports that he was having frequent urination, although he wears a diaper. PAST MEDICAL HISTORY: Hypertension. Noted to be on anticoagulation which reportedly started within the recent weeks. ALLERGIES: No known drug allergies. MEDICATIONS: Current Medications Medications (Trade) Dose Ordered Sig/Karli Route PRN Reason Start Time Stop Time Status Last Admin Dose Admin Sodium Chloride (NS Flush) 2 ml UNSCH PRN IV FLUSH FLUSH AFTER USING IV ACCESS 12/08/17 15:45 Sodium Chloride (NS Flush) 2 ml BID IV FLUSH 12/08/17 21:00 12/17/17 22:54 Amlodipine Besylate (Norvasc) 10 mg DAILY PO 12/09/17 09:00 12/18/17 10:30 Gabapentin (Neurontin) 300 mg BID PO 12/08/17 21:00 12/18/17 10:30 Hydralazine HCl (Apresoline Inj) 10 mg Q30M PRN IV PUSH bp>160/70 12/08/17 20:45 12/13/17 18:06 Acetaminophen (Tylenol) 650 mg Q6HR PRN PO headache/fever/pain1-4 12/09/17 15:15 12/17/17 00:36 Doxazosin Mesylate (Cardura) 2 mg DAILY PO 12/10/17 09:00 12/18/17 10:30 Labetalol HCl (Trandate Inj) 10 mg Q6H PRN IV PUSH SYS BP GREATER THAN 170 MMHG 12/09/17 16:15 12/16/17 05:24 Acetaminophen (Tylenol Supp) 650 mg Q6H PRN RECTAL fever 12/10/17 04:45 12/16/17 05:23 Dextrose/Sodium Chloride 1,000 ml @ 50 mls/hr Q20H IV 12/11/17 08:30 12/18/17 07:22 Nystatin (Mycostatin Liq) 5 ml QID SWISH-SWAL 12/11/17 13:00 12/18/17 10:30 Metoprolol Tartrate (Lopressor) 25 mg Q8H PO 12/12/17 16:00 12/18/17 10:30 Clonidine (Catapres) 0.1 mg Q6H PRN PO SBP>160, DBP>90 12/12/17 15:45 12/18/17 01:51 SOCIAL HISTORY: The patient was born in [place]. Positive tobacco use, 1 pack a day. No alcohol. No illicit drugs. The patient is . Objective: Vital Signs Date Time Temp Pulse Resp B/P (MAP) Pulse Ox O2 Delivery O2 Flow Rate FiO2 12/18/17 12:23 99.3 73 18 151/65 (93) 98 12/18/17 10:28 76 160/69 (99) 93 12/18/17 08:16 98.4 69 16 116/48 (70) 99 12/18/17 06:00 70 12/18/17 05:00 72 12/18/17 04:00 100.4 70 22 143/68 (93) 99 12/18/17 04:00 70 12/18/17 03:00 70 12/18/17 02:00 72 12/18/17 01:00 80 12/18/17 00:52 100.5 72 22 177/85 (115) 96 12/18/17 00:00 77 12/17/17 23:00 78 12/17/17 22:49 101.4 79 165/78 (107) 95 12/17/17 22:00 82 12/17/17 21:00 80 12/17/17 20:00 87 12/17/17 16:00 80 Laboratory Tests Test 12/18/17 12:21 White Blood Count 6.1 TH/MM3 Red Blood Count 3.35 MIL/MM3 Hemoglobin 9.4 GM/DL Hematocrit 28.2 % Mean Corpuscular Volume 84.4 FL Mean Corpuscular Hemoglobin 28.2 PG Mean Corpuscular Hemoglobin Concent 33.4 % Red Cell Distribution Width 13.6 % Platelet Count 429 TH/MM3 Mean Platelet Volume 7.3 FL Neutrophils (%) (Auto) 65.8 % Lymphocytes (%) (Auto) 20.0 % Monocytes (%) (Auto) 10.1 % Eosinophils (%) (Auto) 3.4 % Basophils (%) (Auto) 0.7 % Neutrophils # (Auto) 4.0 TH/MM3 Lymphocytes # (Auto) 1.2 TH/MM3 Monocytes # (Auto) 0.6 TH/MM3 Eosinophils # (Auto) 0.2 TH/MM3 Basophils # (Auto) 0.0 TH/MM3 CBC Comment DIFF FINAL Differential Comment Laboratory Tests Test 12/17/17 10:15 12/18/17 08:34 12/18/17 12:21 Follicle Stimulating Hormone 2.5 mIU/mL Luteinizing Hormone 0.7 mIU/mL Blood Urea Nitrogen 25 MG/DL Creatinine 1.63 MG/DL Random Glucose 85 MG/DL Total Protein 7.4 GM/DL Albumin 2.8 GM/DL Calcium Level 9.5 MG/DL Alkaline Phosphatase 84 U/L Aspartate Amino Transf (AST/SGOT) 52 U/L Alanine Aminotransferase (ALT/SGPT) 65 U/L Total Bilirubin 0.5 MG/DL Sodium Level 139 MEQ/L Potassium Level 4.7 MEQ/L Chloride Level 102 MEQ/L Carbon Dioxide Level 29.3 MEQ/L Anion Gap 8 MEQ/L Estimat Glomerular Filtration Rate 50 ML/MIN C-Reactive Protein 13.00 MG/DL Laboratory Tests Test 12/16/17 12:38 Erythrocyte Sedimentation Rate 96 mm/hr Imaging: Chest X-Ray 12/16/17 0000 Signed Impressions: Service Date/Time: Saturday, December 16, 2017 12:59 - CONCLUSION: 1. Stable mild pulmonary vascular congestion. 2. No significant interval change. Michael Eisenberg MD Lumbar Puncture Fluoroscopy 12/11/17 0000 Signed Impressions: Service Date/Time: November 11:03 - CONCLUSION: Uncomplicated fluoroscopically guided lumbar puncture with pressures as above. Michael Eisenberg MD Head CT 12/10/17 0000 Signed Impressions: Service Date/Time: Sunday, December 10, 2017 12:58 - CONCLUSION: 1. Sellar/suprasellar mass which has been described on recent studies including MRI of the brain. 2. Stable cerebral atrophy and moderate periventricular/subcortical white matter small vessel ischemic changes bilaterally. 3. 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 4. No acute infarct, acute hemorrhage, midline shift or extra-axial bleed. Thien Elkins MD Chest X-Ray 12/10/17 Signed Impressions: Service Date/Time: Sunday, December 10, 2017 13:30 - CONCLUSION: New parenchymal changes right base Bernardino Santo MD FACR Lower Extremity Ultrasound [id number]/[id number] Signed Impressions: Service Date/Time: Friday, December 08, 2017 18:53 - CONCLUSION: Normal examination. Manuel Perez MD Brain MRI [id number] Signed Impressions: Service Date/Time: Friday, December 08, 2017 21:51 - CONCLUSION: 1. 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 This is of mixed signal intensity. No definite enhancement. 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 Followup study in 3 months recommended for stability. 2. Cerebral atrophy with old bilateral basal ganglia lacunar infarcts. 3. The Sean Rodriguez MD PHYSICAL EXAMINATION: GENERAL: No acute distress. Somnolent. HEENT: The head reveals mild ecchymosis at the superior orbital region at the right frontal aspect of the head and also at the area below the right orbit. Extraocular movements appear grossly intact. Pupils reactive to light. No icterus. Oropharynx : Moist mucosa. NECK: Supple without adenopathy or swelling. LUNGS: Decreased breath sounds bilateral. HEART: Regular S1, S2, 2/6 systolic ejection murmur at the left sternal border. No rubs. No gallops. ABDOMEN: Bowel sounds diminished but present. Soft, no tenderness. EXTREMITIES: No clubbing, no cyanosis, no edema. SKIN: No diffuse rash. NEUROLOGIC: Difficult to assess. Patient not cooperating. Moves all extremities Decreased strength. PSYCHIATRIC: Calm and cooperative. IMPRESSION: 1. Fever and abnormal urinalysis in a patient presenting with headache and dizziness. Also abnormal chest x-ray. Continues to have fever. Negative workup to date. The sedimentation rate is elevated. C-reactive protein is elevated Fever probably not infection related. Rule out autoimmune disease. Rule out temporal arteritis/vasculitis. 2. Lumbar puncture revealed 3 white cells in tube #4 and normal glucose with elevated protein. Does not appear to have central nervous system infection. CSF culture is negative. 3. Abnormality on MRI. The patient with known pituitary mass. This is felt to be a pituitary adenoma. 4. Pneumonia based on abnormal chest x-ray with parenchymal changes at the right base. However, the patient does not appear to be coughing or producing sputum and possibly this could be from aspiration. 5. Acute renal disease. 6. Altered mental status. No improvement. RECOMMENDATIONS: 1. Temporal artery biopsy for working up the elevated temperature in light of elevated sedimentation rate. A positive biopsy would be useful in determining treatment going forward. No evidence of infection on workup thus far. He continues to have FUO. 2. Monitor temperature. 3. Monitor clinical status. 4. Continue to hold off on antibiotics for now. I do not have any evidence for infection. I have spent 20 minutes explaining to the the necessity of doing the biopsy. She is agreeable to the procedure being done. I have spoken to the general surgeon about doing the biopsy. Ghulam Ascencio MD Dec 18, 2017 15:22
[2017-12-18] MEDS: ACETAMINOPHEN 650 MG SUPP RECTAL PRN (16:07)
--- NOTE | 2017-12-18 17:54 | HHI.PR ---
Subjective Remarks Patient is still minimally responsive, sleeps most of the day. I spoke with about more medical history, it appears he was a heavy alcohol drinker. Objective Vitals Vital Signs Date Time Temp Pulse Resp B/P (MAP) Pulse Ox O2 Delivery O2 Flow Rate FiO2 12/18/17 12:23 99.3 73 18 151/65 (93) 98 12/18/17 10:28 76 160/69 (99) 93 12/18/17 08:16 98.4 69 16 116/48 (70) 99 12/18/17 06:00 70 12/18/17 05:00 72 12/18/17 04:00 100.4 70 22 143/68 (93) 99 12/18/17 04:00 70 12/18/17 03:00 70 12/18/17 02:00 72 12/18/17 01:00 80 12/18/17 00:52 100.5 72 22 177/85 (115) 96 12/18/17 00:00 77 12/17/17 23:00 78 12/17/17 22:49 101.4 79 165/78 (107) 95 12/17/17 22:00 82 12/17/17 21:00 80 12/17/17 20:00 87 I/O 12/17/17 12/17/17 12/17/17 12/18/17 12/18/17 12/18/17 06:59 14:59 22:59 06:59 14:59 22:59 Intake Total 960 ml 240 ml Output Total 600 ml 1700 ml Balance 360 ml -1460 ml Intake Oral 960 ml 240 ml Output Urine Total 600 ml 1700 ml # Voids 2 # Bowel Movements 2 0 1 Result Diagram: 12/18/17 1221 12/18/17 0834 Objective Remarks GENERAL: Patient is lying on his back in bed with his eyes closed although he is awake. SKIN: Warm and dry. HEAD: Normocephalic. EYES: No scleral icterus. No injection or drainage. NECK: Supple, trachea midline. No JVD or lymphadenopathy. CARDIOVASCULAR: Regular rate and rhythm 1/6 THOR, gallops, or rubs. RESPIRATORY: Breath sounds equal bilaterally. No accessory muscle use. GASTROINTESTINAL: Abdomen soft, non-tender, nondistended. EXTREMITIES: No cyanosis, or edema. NEUROLOGICAL: Awake, alert, and oriented x 3. Non-focal. Procedures 12/11- LP A/P Problem List: (1) Suprasellar mass ICD Code: R22.0 - Localized swelling, mass and lump, head Assessment and Plan Sepsis with encephalopathy Urinary tract Infection- Pyuria, but culture negative Lung infiltrate possible aspiration Lumbar Puncture and Culture remain negative Blood cultures remain negative Continue coverage with Zosyn Temporal artery biopsy is being arranged Appreciate Infectious Disease consulting Appreciate general surgery consulting Hypotestosteronism Total testosterone was 7.1 (normal begins at 240) This could be part of the picture of his chronic fatigue IM testosterone was held by endocrinology, further workup ordered by endocrinology Repeat testosterone panel is pending PSA screen ordered Appreciate endocrinology assisting sellar mass with visual disturbance/ dizziness/ falls chronic anticoagulation on coumadin - INR 1.1 on admission Appreciate neurology following Generalized Weakness (deconditioning) We will need senior care rehab on discharge Acute Kidney injury secondary to Sepsis Not severe, but slow to improve, continue to monitor Intermittent hypertensive urgency Continue clonidine as needed Continue amlodipine Oral thrush Nystatin swish and swallow 4 times daily Left buttock wound Appreciate wound care team consult Moderate skin thickness ulcer Calamine lotion recommended DVT Prophylaxis Angelo Villarreal MD Dec 18, 2017 17:54
--- NOTE | 2017-12-18 17:57 | PD.CONS ---
HPI Service General surgery Consult Requested By Dr. Ascencio Reason for Consult Possible temporal arteritis request biopsy Primary Care Physician Non-Staff History of Present Illness 77-year-old male with a somewhat complex history including a suprasellar mass as well as encephalopathy and concerns for sepsis. No source of sepsis has been identified despite intensive evaluation. He continues to have intermittent fevers and lethargy. Patient had complaints of headache and dizziness prior to admission. In addition his reports that during coughing he frequently is holding the right temporal area. He has been evaluated by neurology, neurosurgery, endocrinology and infectious disease. Dr. Ascencio has requested temporal artery biopsy due to the persistent intermittent fevers and his history. Review of Systems ROS Limitations: Clinical Condition, Altered Mental Status Constitutional: COMPLAINS OF: Fever Neurologic: COMPLAINS OF: Headache Past Family Social History Past Medical History HTN Question of being recently started on anticoagulation Past Surgical History None Reported Medications Reported Meds & Active Scripts Active Reported Warfarin 2.5 Mg Tab 2.5 Mg PO DAILY Gabapentin 300 Mg Cap 300 Mg PO BID Amlodipine (Amlodipine Besylate) 10 Mg Tab 10 Mg PO DAILY Clonidine (Clonidine HCl) 0.1 Mg Tab 0.1 Mg PO HS Allergies: Coded Allergies: No Known Allergies (Unverified , 12/08/17) Active Ordered Medications Current Medications Medications (Trade) Dose Ordered Sig/Karli Route Start Time Stop Time Status Last Admin (NS Flush) 2 ml UNSCH PRN IV FLUSH 12/08/17 15:45 (NS Flush) 2 ml BID IV FLUSH 12/08/17 21:00 12/17/17 22:54 (Norvasc) 10 mg DAILY PO 12/09/17 09:00 12/18/17 10:30 (Neurontin) 300 mg BID PO 12/08/17 21:00 12/18/17 10:30 (Apresoline Inj) 10 mg Q30M PRN IV PUSH 12/08/17 20:45 12/13/17 18:06 (Tylenol) 650 mg Q6HR PRN PO 12/09/17 15:15 12/17/17 00:36 (Cardura) 2 mg DAILY PO 12/10/17 09:00 12/18/17 10:30 (Trandate Inj) 10 mg Q6H PRN IV PUSH 12/09/17 16:15 12/16/17 05:24 (Tylenol Supp) 650 mg Q6H PRN RECTAL 12/10/17 04:45 12/18/17 16:07 Dextrose/Sodium Chloride 1,000 ml @ 50 mls/hr Q20H IV 12/11/17 08:30 12/18/17 07:22 (Mycostatin Liq) 5 ml QID SWISH-SWAL 12/11/17 13:00 12/18/17 10:30 (Lopressor) 25 mg Q8H PO 12/12/17 16:00 12/18/17 10:30 (Catapres) 0.1 mg Q6H PRN PO 12/12/17 15:45 12/18/17 01:51 Family History Noncontributory Social History Per chart review, smokes 1.5ppd. His is present at bedside. Physical Exam Vital Signs Vital Signs Date Time Temp Pulse Resp B/P (MAP) Pulse Ox O2 Delivery O2 Flow Rate FiO2 12/18/17 12:23 99.3 73 18 151/65 (93) 98 12/18/17 10:28 76 160/69 (99) 93 12/18/17 08:16 98.4 69 16 116/48 (70) 99 12/18/17 06:00 70 12/18/17 05:00 72 12/18/17 04:00 100.4 70 22 143/68 (93) 99 12/18/17 04:00 70 12/18/17 03:00 70 12/18/17 02:00 72 12/18/17 01:00 80 12/18/17 00:52 100.5 72 22 177/85 (115) 96 12/18/17 00:00 77 12/17/17 23:00 78 12/17/17 22:49 101.4 79 165/78 (107) 95 12/17/17 22:00 82 12/17/17 21:00 80 12/17/17 20:00 87 Physical Exam GENERAL: Very lethargic. He awakes in sort of grunts but is not conversant with me. HEAD: Normocephalic. Atraumatic. Not obviously tender in the right temporal area although again he is lethargic.. NECK: Trachea midline. CHEST: Breathing is nonlabored. No respiratory distress. CARDIOVASCULAR: Regular rate and rhythm. ABDOMEN: Soft, round EXTREMITIES: No cyanosis or edema. Chronic appearing venous changes and scarring bilateral lower extremities. SKIN: Warm, dry, nonjaundiced. Laboratory Laboratory Tests Test 12/18/17 08:34 12/18/17 12:21 Blood Urea Nitrogen 25 Creatinine 1.63 Random Glucose 85 Total Protein 7.4 Albumin 2.8 Calcium Level 9.5 Alkaline Phosphatase 84 Aspartate Amino Transf (AST/SGOT) 52 Alanine Aminotransferase (ALT/SGPT) 65 Total Bilirubin 0.5 Sodium Level 139 Potassium Level 4.7 Chloride Level 102 Carbon Dioxide Level 29.3 Anion Gap 8 Estimat Glomerular Filtration Rate 50 White Blood Count 6.1 Red Blood Count 3.35 Hemoglobin 9.4 Hematocrit 28.2 Mean Corpuscular Volume 84.4 Mean Corpuscular Hemoglobin 28.2 Mean Corpuscular Hemoglobin Concent 33.4 Red Cell Distribution Width 13.6 Platelet Count 429 Mean Platelet Volume 7.3 Neutrophils (%) (Auto) 65.8 Lymphocytes (%) (Auto) 20.0 Monocytes (%) (Auto) 10.1 Eosinophils (%) (Auto) 3.4 Basophils (%) (Auto) 0.7 Neutrophils # (Auto) 4.0 Lymphocytes # (Auto) 1.2 Monocytes # (Auto) 0.6 Eosinophils # (Auto) 0.2 Basophils # (Auto) 0.0 CBC Comment DIFF FINAL Differential Comment C-Reactive Protein 13.00 Date/Time Source Procedure Growth Status 12/13/17 09:08 Blood Peripheral Aerobic Blood Culture - Final NO GROWTH IN 5 DAYS Complete 12/13/17 09:08 Blood Peripheral Anaerobic Blood Culture - Final NO GROWTH IN 5 DAYS Complete 12/11/17 10:58 Cerebral Spinal Fluid Lumbar Puncture Fungal Smear - Final NO FUNGAL ELEMENTS SEEN. Resulted 12/11/17 10:58 Cerebral Spinal Fluid Lumbar Puncture Fungal Culture - Preliminary NO GROWTH IN 1 WEEK Resulted 12/13/17 13:28 Urine Clean Catch Urine Culture - Final NO GROWTH IN 48 HOURS. Complete Result Diagram: 12/18/17 1221 12/18/17 0834 Imaging Last Impressions Chest X-Ray 12/16/17 0000 Signed Impressions: Service Date/Time: Saturday, December 16, 2017 12:59 - CONCLUSION: 1. Stable mild pulmonary vascular congestion. 2. No significant interval change. Michael Eisenberg MD Lumbar Puncture Fluoroscopy 12/11/17 0000 Signed Impressions: Service Date/Time: November 11:03 - CONCLUSION: Uncomplicated fluoroscopically guided lumbar puncture with pressures as above. Michael Eisenberg MD Head CT 12/10/17 0000 Signed Impressions: Service Date/Time: Sunday, December 10, 2017 12:58 - CONCLUSION: 1. Sellar/suprasellar mass which has been described on recent studies including MRI of the brain. 2. Stable cerebral atrophy and moderate periventricular/subcortical white matter small vessel ischemic changes bilaterally. 3. 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 4. No acute infarct, acute hemorrhage, midline shift or extra-axial bleed. Thien Elkins MD Lower Extremity Ultrasound [id number]/08/[id number] Signed Impressions: Service Date/Time: Friday, December 08, 2017 18:53 - CONCLUSION: Normal examination. Manuel Perez MD Brain MRI [id number] Signed Impressions: Service Date/Time: Friday, December 08, 2017 21:51 - CONCLUSION: 1. 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 This is of mixed signal intensity. No definite enhancement. 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 Followup study in 3 months recommended for stability. 2. Cerebral atrophy with old bilateral basal ganglia lacunar infarcts. 3. The Sean Rodriguez MD Assessment and Plan Assessment and Plan 77-year-old male with encephalopathy, intermittent fevers, suprasellar mass with history of headaches. Temporal artery biopsy requested. Plan right temporal artery biopsy tomorrow or early next week. I discussed the procedure in detail with the patient's and she desires that I proceed. Madi Rosenberg MD Dec 18, 2017 17:57
[2017-12-19] VITALS (8 sets, daily range): BP systolic 135–169; BP diastolic 63–83; PULSE 68–81; RESP 16–22; TEMP 98.6–101.3; O2SAT 95–97
[2017-12-19] MEDS: METOPROLOL TARTRATE 25 MG TAB PO SCH ×4 (00:16→21:37)
[2017-12-19] MEDS: DEXT 5%-NACL 0.9% 1000 ML INJ 1,000 ML IV SCH ×2 (05:34→23:27)
[2017-12-19] MEDS: GABAPENTIN 300 MG CAP PO SCH ×2 (09:00→21:37)
[2017-12-19] MEDS: SODIUM CHLORIDE 0.9% FLUSH 10 ML FLUSH IV FLUSH SCH ×2 (09:00→21:37)
[2017-12-19] MEDS: NYSTATIN SUSP 500,000 U/5 ML CUP SWISH-SWAL SCH ×4 (09:00→21:37)
[2017-12-19] MEDS: DOXAZOSIN MESYLATE 2 MG TAB PO SCH (09:37)
[2017-12-19 14:29] LABS: BIOAVAILABLE TESTOSTERONE <0.9 ng/dL; ESTRADIOL <10 pg/mL (10-40); PROLACTIN <1.0 ng/mL (4.0 - 15.2); TOTAL TESTOSTERONE <7.0 ng/dL (240-950)
--- NOTE | 2017-12-19 17:09 | HHI.IDPN ---
Note Infectious Disease Note . Patient remains very lethargic. He answers me but very slowly. He continues to keep his right eye shut. Unable to get him to raise his left hand and arm higher than approximately 6 inches off his abdomen. His notes that the is able to raise his arm. Continues to have fever but the temperature max is lower. Temporal artery biopsy postponed for Friday. 2D echocardiogram showed no vegetation. C-reactive protein is highly elevated. The sedimentation rate is elevated. CURTIS negative. Rheumatoid factor negative. Presented with altered mental status. The patient's notes that he was having difficulty with ambulation and he fell at home. He was initially brought to [facility] ED and then over to [facility]. He was evaluated on 12/08/2017. The patient apparently was having headache and dizziness for 2 days. When he first arrived, he was noted to be closing his eyes during the interview and that he was a poor historian. He also was noted to have a high systolic blood pressure. She notes that he had complained of headaches off and on, but that he had at most sustained headaches for a couple days before admission and that he was starting to develop dizziness. She also reports that he was having frequent urination, although he wears a diaper. PAST MEDICAL HISTORY: Hypertension. Noted to be on anticoagulation which reportedly started within the recent weeks. ALLERGIES: No known drug allergies. MEDICATIONS: Current Medications Medications (Trade) Dose Ordered Sig/Karli Route PRN Reason Start Time Stop Time Status Last Admin Dose Admin Sodium Chloride (NS Flush) 2 ml UNSCH PRN IV FLUSH FLUSH AFTER USING IV ACCESS 12/08/17 15:45 Sodium Chloride (NS Flush) 2 ml BID IV FLUSH 12/08/17 21:00 12/18/17 21:00 Amlodipine Besylate (Norvasc) 10 mg DAILY PO 12/09/17 09:00 12/19/17 09:37 Gabapentin (Neurontin) 300 mg BID PO 12/08/17 21:00 12/18/17 10:30 Hydralazine HCl (Apresoline Inj) 10 mg Q30M PRN IV PUSH bp>160/70 12/08/17 20:45 12/13/17 18:06 Acetaminophen (Tylenol) 650 mg Q6HR PRN PO headache/fever/pain1-4 12/09/17 15:15 12/17/17 00:36 Doxazosin Mesylate (Cardura) 2 mg DAILY PO 12/10/17 09:00 12/19/17 09:37 Labetalol HCl (Trandate Inj) 10 mg Q6H PRN IV PUSH SYS BP GREATER THAN 170 MMHG 12/09/17 16:15 12/16/17 05:24 Acetaminophen (Tylenol Supp) 650 mg Q6H PRN RECTAL fever 12/10/17 04:45 12/18/17 16:07 Dextrose/Sodium Chloride 1,000 ml @ 50 mls/hr Q20H IV 12/11/17 08:30 12/19/17 05:34 Nystatin (Mycostatin Liq) 5 ml QID SWISH-SWAL 12/11/17 13:00 12/19/17 13:11 Metoprolol Tartrate (Lopressor) 25 mg Q8H PO 12/12/17 16:00 12/19/17 16:37 Clonidine (Catapres) 0.1 mg Q6H PRN PO SBP>160, DBP>90 12/12/17 15:45 12/18/17 01:51 SOCIAL HISTORY: The patient was born in [place]. Positive tobacco use, 1 pack a day. No alcohol. No illicit drugs. The patient is . Objective: Vital Signs Date Time Temp Pulse Resp B/P (MAP) Pulse Ox O2 Delivery O2 Flow Rate FiO2 12/19/17 16:00 99.0 68 16 148/70 (96) 97 12/19/17 12:00 98.6 71 18 135/63 (87) 96 12/19/17 08:00 98.7 77 18 162/76 (104) 97 12/19/17 05:33 99.8 76 22 157/74 (101) 96 12/19/17 04:00 75 12/19/17 00:00 81 12/19/17 00:00 99.6 80 22 169/82 (111) 95 12/18/17 20:00 99.6 87 22 165/75 (105) 99 12/18/17 20:00 77 Laboratory Tests Test 12/18/17 12:21 White Blood Count 6.1 TH/MM3 Red Blood Count 3.35 MIL/MM3 Hemoglobin 9.4 GM/DL Hematocrit 28.2 % Mean Corpuscular Volume 84.4 FL Mean Corpuscular Hemoglobin 28.2 PG Mean Corpuscular Hemoglobin Concent 33.4 % Red Cell Distribution Width 13.6 % Platelet Count 429 TH/MM3 Mean Platelet Volume 7.3 FL Neutrophils (%) (Auto) 65.8 % Lymphocytes (%) (Auto) 20.0 % Monocytes (%) (Auto) 10.1 % Eosinophils (%) (Auto) 3.4 % Basophils (%) (Auto) 0.7 % Neutrophils # (Auto) 4.0 TH/MM3 Lymphocytes # (Auto) 1.2 TH/MM3 Monocytes # (Auto) 0.6 TH/MM3 Eosinophils # (Auto) 0.2 TH/MM3 Basophils # (Auto) 0.0 TH/MM3 CBC Comment DIFF FINAL Differential Comment Laboratory Tests Test 12/18/17 08:34 12/18/17 12:21 12/19/17 06:10 Blood Urea Nitrogen 25 MG/DL Creatinine 1.63 MG/DL Random Glucose 85 MG/DL Total Protein 7.4 GM/DL Albumin 2.8 GM/DL Calcium Level 9.5 MG/DL Alkaline Phosphatase 84 U/L Aspartate Amino Transf (AST/SGOT) 52 U/L Alanine Aminotransferase (ALT/SGPT) 65 U/L Total Bilirubin 0.5 MG/DL Sodium Level 139 MEQ/L Potassium Level 4.7 MEQ/L Chloride Level 102 MEQ/L Carbon Dioxide Level 29.3 MEQ/L Anion Gap 8 MEQ/L Estimat Glomerular Filtration Rate 50 ML/MIN C-Reactive Protein 13.00 MG/DL Ammonia 16 MCMOL/L Prostate Specific Antigen Screen 1.87 NG/ML Laboratory Tests Test 12/17/17 10:15 12/18/17 08:34 12/18/17 12:21 Follicle Stimulating Hormone 2.5 mIU/mL Luteinizing Hormone 0.7 mIU/mL Blood Urea Nitrogen 25 MG/DL Creatinine 1.63 MG/DL Random Glucose 85 MG/DL Total Protein 7.4 GM/DL Albumin 2.8 GM/DL Calcium Level 9.5 MG/DL Alkaline Phosphatase 84 U/L Aspartate Amino Transf (AST/SGOT) 52 U/L Alanine Aminotransferase (ALT/SGPT) 65 U/L Total Bilirubin 0.5 MG/DL Sodium Level 139 MEQ/L Potassium Level 4.7 MEQ/L Chloride Level 102 MEQ/L Carbon Dioxide Level 29.3 MEQ/L Anion Gap 8 MEQ/L Estimat Glomerular Filtration Rate 50 ML/MIN C-Reactive Protein 13.00 MG/DL Laboratory Tests Test 12/16/17 12:38 Erythrocyte Sedimentation Rate 96 mm/hr Imaging: Chest X-Ray 12/16/17 Signed Impressions: Service Date/Time: Saturday, December 16, 2017 12:59 - CONCLUSION: 1. Stable mild pulmonary vascular congestion. 2. No significant interval change. Michael Eisenberg MD Lumbar Puncture Fluoroscopy 12/11/17 Signed Impressions: Service Date/Time: November 11:03 - CONCLUSION: Uncomplicated fluoroscopically guided lumbar puncture with pressures as above. Michael Eisenberg MD Head CT 12/10/17 0000 Signed Impressions: Service Date/Time: Sunday, December 10, 2017 12:58 - CONCLUSION: 1. Sellar/suprasellar mass which has been described on recent studies including MRI of the brain. 2. Stable cerebral atrophy and moderate periventricular/subcortical white matter small vessel ischemic changes bilaterally. 3. 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 4. No acute infarct, acute hemorrhage, midline shift or extra-axial bleed. Thien Elkins MD Chest X-Ray 12/10/17 Signed Impressions: Service Date/Time: Sunday, December 10, 2017 13:30 - CONCLUSION: New parenchymal changes right base Bernardino Santo MD FACR Lower Extremity Ultrasound [id number] Signed Impressions: Service Date/Time: Friday, December 08, 2017 18:53 - CONCLUSION: Normal examination. Manuel Perez MD Brain MRI [id number] Signed Impressions: Service Date/Time: Friday, December 08, 2017 21:51 - CONCLUSION: 1. 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 This is of mixed signal intensity. No definite enhancement. 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 Followup study in 3 months recommended for stability. 2. Cerebral atrophy with old bilateral basal ganglia lacunar infarcts. 3. The Sean Rodriguez MD PHYSICAL EXAMINATION: GENERAL: No acute distress. Somnolent. HEENT: The head reveals mild ecchymosis at the superior orbital region at the right frontal aspect of the head and also at the area below the right orbit. Extraocular movements appear grossly intact. Pupils reactive to light. No icterus. Oropharynx : Moist mucosa. NECK: Supple without adenopathy or swelling. LUNGS: Decreased breath sounds bilateral. HEART: Regular S1, S2, 2/6 systolic ejection murmur at the left sternal border. No rubs. No gallops. ABDOMEN: Bowel sounds diminished but present. Soft, no tenderness. EXTREMITIES: No clubbing, no cyanosis, no edema. SKIN: No diffuse rash. NEUROLOGIC: Difficult to assess. Decreased strength. PSYCHIATRIC: Calm and cooperative. IMPRESSION: 1. Fever and abnormal urinalysis in a patient presenting with headache and dizziness. Also abnormal chest x-ray. Continues to have fever. Negative workup to date. The sedimentation rate is elevated. C-reactive protein is elevated Fever probably not infection related. Rule out autoimmune disease. Rule out temporal arteritis/vasculitis. 2. Lumbar puncture revealed 3 white cells in tube #4 and normal glucose with elevated protein. Does not appear to have central nervous system infection. CSF culture is negative. 3. Abnormality on MRI. The patient with known pituitary mass. This is felt to be a pituitary adenoma. 4. Pneumonia based on abnormal chest x-ray with parenchymal changes at the right base. However, the patient does not appear to be coughing or producing sputum and possibly this could be from aspiration. 5. Acute renal disease. 6. Altered mental status. No improvement. RECOMMENDATIONS: 1. Temporal artery biopsy for working up the elevated temperature in light of elevated sedimentation rate. A positive biopsy would be useful in determining treatment going forward. No evidence of infection on workup thus far. He continues to have FUO. 2. Monitor temperature. 3. Monitor clinical status. 4. Continue to hold off on antibiotics for now. I do not have any evidence for infection. I have spoken to the general surgeon about doing the biopsy. I have spoken to the patient's . We need to get the results of the biopsy make decisions. Ghulam Ascencio MD Dec 19, 2017 17:09
--- NOTE | 2017-12-19 18:01 | HHI.PR ---
Subjective Remarks Updated patient's today regarding the plan workup for temporal arteritis, and the ongoing workup for hypo-testosteronism. She seemed to understand that her was presenting atypically. Later in the day however she informed the nurse that she would like to transfer her to a different hospital because she feels like things are not going anywhere with his care. Objective Vitals Vital Signs Date Time Temp Pulse Resp B/P (MAP) Pulse Ox O2 Delivery O2 Flow Rate FiO2 12/19/17 16:00 99.0 68 16 148/70 (96) 97 12/19/17 12:00 98.6 71 18 135/63 (87) 96 12/19/17 08:00 98.7 77 18 162/76 (104) 97 12/19/17 05:33 99.8 76 22 157/74 (101) 96 12/19/17 04:00 75 12/19/17 00:00 81 12/19/17 00:00 99.6 80 22 169/82 (111) 95 12/18/17 20:00 99.6 87 22 165/75 (105) 99 12/18/17 20:00 77 I/O 12/18/17 12/18/17 12/18/17 12/19/17 12/19/17 12/19/17 07:00 15:00 23:00 07:00 15:00 23:00 Intake Total 240 ml 480 ml Output Total 1700 ml 500 ml 350 ml 680 ml Balance -1460 ml -500 ml 130 ml -680 ml Intake Oral 240 ml 480 ml Output Urine Total 1700 ml 500 ml 350 ml 680 ml # Bowel Movements 1 1 Result Diagram: 12/18/17 1221 12/18/17 0834 Objective Remarks GENERAL: Patient is lying on his back in bed with his eyes closed although he is awake. SKIN: Warm and dry. HEAD: Normocephalic. EYES: No scleral icterus. No injection or drainage. NECK: Supple, trachea midline. No JVD or lymphadenopathy. CARDIOVASCULAR: Regular rate and rhythm 1/6 THOR, gallops, or rubs. RESPIRATORY: Breath sounds equal bilaterally. No accessory muscle use. GASTROINTESTINAL: Abdomen soft, non-tender, nondistended. EXTREMITIES: No cyanosis, or edema. NEUROLOGICAL: Awake, alert, and oriented x 3. Non-focal. Procedures 12/11- LP A/P Problem List: (1) Suprasellar mass ICD Code: R22.0 - Localized swelling, mass and lump, head Assessment and Plan Sepsis with encephalopathy Urinary tract Infection- Pyuria, but culture negative Lung infiltrate possible aspiration CSF culture negative, blood culture negative Continue empiric coverage with Zosyn Temporal artery biopsy scheduled for Friday Appreciate Infectious Disease consulting Appreciate general surgery consulting Hypotestosteronism Total testosterone was 7.1 (normal begins at 240) This could be part of the picture of his chronic fatigue Repeat testosterone panel is pending PSA screen ordered Appreciate endocrinology assisting sellar mass with visual disturbance/ dizziness/ falls chronic anticoagulation on coumadin - INR 1.1 on admission Appreciate neurology following Generalized Weakness (deconditioning) We will need long-term rehab on discharge Intermittent hypertensive urgency Continue clonidine as needed Continue amlodipine Oral thrush Nystatin swish and swallow 4 times daily Left buttock wound Appreciate wound care team consult Moderate skin thickness ulcer Calamine lotion recommended DVT Prophylaxis Lovenox Angelo Dent MD Dec 19, 2017 18:01
[2017-12-20] VITALS (7 sets, daily range): BP systolic 141–180; BP diastolic 66–82; PULSE 69–91; RESP 20–22; TEMP 98.5–99.7; O2SAT 94–97
[2017-12-20 04:30] LABS: HEMATOCRIT 28.5 % (39.0-51.0); HEMOGLOBIN 9.4 GM/DL (13.0-17.0); MEAN CELL VOLUME 83.9 FL (80.0-100.0); MEAN CORPUSCULAR HEMOGLOBIN 27.8 PG (27.0-34.0); MEAN CORPUSCULAR HGB CONC 33.1 % (32.0-36.0); MEAN PLATELET VOLUME 6.9 FL (7.0-11.0); PLATELET COUNT 487 TH/MM3 (150-450); RED CELL DISTRIBUTION WIDTH 13.2 % (11.6-17.2); WHITE BLOOD COUNT 5.7 TH/MM3 (4.0-11.0)
[2017-12-20 04:37] LABS: BICARBONATE 27.2 MEQ/L (21.0-32.0); CREATININE 1.8 MG/DL (0.60-1.30)
[2017-12-20] MEDS: SODIUM CHLORIDE 0.9% FLUSH 10 ML FLUSH IV FLUSH SCH ×2 (09:00→22:02)
[2017-12-20] MEDS: METOPROLOL TARTRATE 25 MG TAB PO SCH ×3 (09:25→22:02)
[2017-12-20] MEDS: ACETAMINOPHEN 325 MG TAB PO PRN (09:25)
[2017-12-20] MEDS: DOXAZOSIN MESYLATE 2 MG TAB PO SCH (09:25)
[2017-12-20] MEDS: GABAPENTIN 300 MG CAP PO SCH ×2 (09:25→22:02)
[2017-12-20] MEDS: NYSTATIN SUSP 500,000 U/5 ML CUP SWISH-SWAL SCH ×4 (09:26→22:04)
[2017-12-20] MEDS ORDERED: TESTOSTERONE CYPIONATE IN OIL 200 MG/ML VIAL IM ONE (15:00)
--- NOTE | 2017-12-20 15:19 | HHI.PR ---
Subjective Remarks Spoke with today who admits that she is frustrated with the feeling that nothing is moving forward and that her 's condition is not improving. I explained to her that I transferred to a different hospital is not something that we can legally do through insurance, but that it is her right to take her where she feels he would be best cared for. In the meantime I assured her I would answer the question regarding whether or not testosterone as part of his overall lethargy and weakened state. Objective Vitals Vital Signs Date Time Temp Pulse Resp B/P (MAP) Pulse Ox O2 Delivery O2 Flow Rate FiO2 12/20/17 09:29 98.5 91 22 180/82 (114) 96 12/20/17 04:00 99.7 86 22 160/69 (99) 94 12/20/17 04:00 84 12/20/17 00:00 72 12/20/17 00:00 98.8 72 22 152/71 (98) 97 12/19/17 20:00 101.3 77 22 159/83 (108) 95 12/19/17 20:00 80 12/19/17 19:21 74 162/76 (104) 97 12/19/17 16:00 99.0 68 16 148/70 (96) 97 I/O 12/19/17 12/19/17 12/19/17 12/20/17 12/20/17 12/20/17 07:00 15:00 23:00 07:00 15:00 23:00 Intake Total 360 ml Output Total 680 ml 1200 ml 775 ml Balance -680 ml -840 ml -775 ml Intake Oral 360 ml Output Urine Total 680 ml 1200 ml 775 ml # Bowel Movements 0 Result Diagram: 12/20/17 0359 12/20/17 0359 Objective Remarks GENERAL: Patient is lying on his back awake today. SKIN: Warm and dry. HEAD: Normocephalic. EYES: No scleral icterus. No injection or drainage. NECK: Supple, trachea midline. No JVD or lymphadenopathy. CARDIOVASCULAR: Regular rate and rhythm 1/6 THOR, gallops, or rubs. RESPIRATORY: Breath sounds equal bilaterally. No accessory muscle use. GASTROINTESTINAL: Abdomen soft, non-tender, nondistended. EXTREMITIES: No cyanosis, or edema. NEUROLOGICAL: Awake, alert, and oriented x 3. Non-focal. Procedures 4/12- LP A/P Problem List: (1) Suprasellar mass ICD Code: R22.0 - Localized swelling, mass and lump, head Assessment and Plan Lethargy and Generalized Weakness Patient spends approximately 80% of his day in a sleep-like state, though his reports he is awake and listening despite having his eyes closed Encephalopathy secondary to sepsis is a possibility but low likelihood due to adequate treatment of infection without improvement in his affect Temporal artery biopsy is pending following elevated CRP and ESR, though the symptoms are not typical of that diagnosis Hypotestosteronism may be a partial contributor toward this symptomatology Sellar mass has thrown off a number of hormonal balances which may be contributing to his symptomatology as well Sepsis with encephalopathy Urinary tract Infection- Pyuria, but culture negative Lung infiltrate possible aspiration CSF culture negative, blood culture negative Continue empiric coverage with Zosyn Temporal artery biopsy scheduled for Friday Appreciate Infectious Disease consulting Appreciate general surgery consulting Hypotestosteronism Total testosterone was 7.1, repeat level less than 10 (normal begins at 240) Patient is on Lovenox which reduces blood clot risk, with PSA screening returning normal Give single standard dose of testosterone Appreciate endocrinology assisting sellar mass with visual disturbance/ dizziness/ falls chronic anticoagulation on coumadin - INR 1.1 on admission Appreciate neurology following Generalized Weakness (deconditioning) We will need half-way rehab on discharge Intermittent hypertensive urgency Continue clonidine as needed Continue amlodipine Oral thrush Nystatin swish and swallow 4 times daily Left buttock wound Appreciate wound care team consult Moderate skin thickness ulcer Calamine lotion recommended DVT Prophylaxis Lovenox Angelo Dent MD Dec 20, 2017 15:18
[2017-12-20] MEDS: ENOXAPARIN SODIUM 40 MG/0.4 ML SYRINGE SQ SCH (16:11)
[2017-12-20] MEDS: DEXT 5%-NACL 0.9% 1000 ML INJ 1,000 ML IV SCH (22:02)
[2017-12-21] VITALS (14 sets, daily range): BP systolic 128–162; BP diastolic 63–77; PULSE 69–87; RESP 16–22; TEMP 98.6–100.4; O2SAT 92–98
[2017-12-21] MEDS: NYSTATIN SUSP 500,000 U/5 ML CUP SWISH-SWAL SCH ×4 (08:33→22:34)
[2017-12-21] MEDS: DOXAZOSIN MESYLATE 2 MG TAB PO SCH (08:33)
[2017-12-21] MEDS: METOPROLOL TARTRATE 25 MG TAB PO SCH ×2 (08:33→14:30)
[2017-12-21] MEDS: GABAPENTIN 300 MG CAP PO SCH ×2 (08:33→22:33)
[2017-12-21] MEDS: ENOXAPARIN SODIUM 40 MG/0.4 ML SYRINGE SQ SCH (08:33)
[2017-12-21] MEDS: SODIUM CHLORIDE 0.9% FLUSH 10 ML FLUSH IV FLUSH SCH ×2 (08:48→22:34)
--- NOTE | 2017-12-21 16:17 | HHI.PR ---
Subjective Remarks Patient appears about the same as previous days. His states that he seemed to have more energy this morning, but that is a subjective finding. He was given a testosterone shot yesterday evening and seems to be tolerating that well, though no difference in his appearance is evidence of far. Objective Vitals Vital Signs Date Time Temp Pulse Resp B/P (MAP) Pulse Ox O2 Delivery O2 Flow Rate FiO2 12/21/17 09:00 73 12/21/17 08:40 98.7 72 16 128/64 (85) 98 12/21/17 04:00 98.9 71 22 162/69 (100) 98 12/21/17 04:00 71 12/21/17 00:00 69 12/21/17 00:00 99.1 72 20 146/74 (98) 97 12/20/17 20:00 99.2 76 20 141/75 (97) 94 12/20/17 20:00 75 12/20/17 17:10 69 12/20/17 16:15 98.9 148/66 (93) I/O 12/20/17 12/20/17 12/20/17 12/21/17 12/21/17 12/21/17 07:00 15:00 23:00 07:00 15:00 23:00 Intake Total 480 ml Output Total 775 ml 720 ml 425 ml Balance -775 ml -240 ml -425 ml Intake Oral 480 ml Output Urine Total 775 ml 720 ml 425 ml # Voids 1 Result Diagram: 12/20/17 0359 12/20/17 0359 Objective Remarks GENERAL: Patient is lying on his back awake today. SKIN: Warm and dry. HEAD: Normocephalic. EYES: No scleral icterus. No injection or drainage. NECK: Supple, trachea midline. No JVD or lymphadenopathy. CARDIOVASCULAR: Regular rate and rhythm 1/6 THOR, gallops, or rubs. RESPIRATORY: Breath sounds equal bilaterally. No accessory muscle use. GASTROINTESTINAL: Abdomen soft, non-tender, nondistended. EXTREMITIES: No cyanosis, or edema. NEUROLOGICAL: Awake, alert, and oriented x 3. Non-focal. Procedures 12/11- LP A/P Problem List: (1) Suprasellar mass ICD Code: R22.0 - Localized swelling, mass and lump, head Assessment and Plan Lethargy and Generalized Weakness 80% of his day is spent a sleep-like state, though his reports he is awake and listening despite having his eyes closed Encephalopathy secondary to sepsis is a possibility but low likelihood due to adequate treatment of infection without improvement in his affect Temporal artery biopsy is pending following elevated CRP and ESR, though the symptoms are not typical of that diagnosis Hypotestosteronism may be a partial contributor toward this symptomatology, testosterone shot given yesterday Sellar mass has thrown off a number of hormonal balances which may be contributing to his symptomatology as well Provigil may be considered, but that would only be for symptomatic relief and may not address underlying cause Sepsis with encephalopathy Urinary tract Infection- Pyuria, but culture negative Lung infiltrate possible aspiration CSF culture negative, blood culture negative Continue empiric coverage with Zosyn Temporal artery biopsy scheduled for Friday Appreciate Infectious Disease consulting Appreciate general surgery consulting Hypotestosteronism Total testosterone was 7.1, repeat level less than 10 (normal begins at 240) Patient is on Lovenox which reduces blood clot risk, with PSA screening returning normal Testosterone shot given on 12/20 Appreciate endocrinology assisting sellar mass with visual disturbance/ dizziness/ falls chronic anticoagulation on coumadin - INR 1.1 on admission Appreciate neurology following Generalized Weakness (deconditioning) We will need [facility] on discharge Intermittent hypertensive urgency Continue clonidine as needed Continue amlodipine Oral thrush Nystatin swish and swallow 4 times daily Left buttock wound Appreciate wound care team consult Moderate skin thickness ulcer Calamine lotion recommended DVT Prophylaxis Lovenox Angelo Dent MD Dec 21, 2017 16:17
[2017-12-21] MEDS: DEXT 5%-NACL 0.9% 1000 ML INJ 1,000 ML IV SCH (17:13)
[2017-12-21] MEDS ORDERED: CHLORHEXIDINE GLUCONATE 2 % 1 PACK (2 CLOTHS) TOPICAL PRN (22:00)
[2017-12-21] MEDS ORDERED: SODIUM CHLORID 0.9% 500 ML IV PRN (22:00)
[2017-12-21] MEDS ORDERED: LACTATED RINGER'S 1000 ML IV PRN (22:00)
[2017-12-21] MEDS ORDERED: POVIDONE IODINE 5% (ANTISEPSIS KIT) 4 APPLICATIONS EACH NARE PRN (22:00)
[2017-12-22] VITALS (22 sets, daily range): BP systolic 123–161; BP diastolic 53–82; PULSE 66–86; RESP 18–20; TEMP 97.8–99.6; O2SAT 93–97
[2017-12-22] MEDS: METOPROLOL TARTRATE 25 MG TAB PO SCH ×3 (00:19→16:11)
[2017-12-22 06:29] LABS: HEMATOCRIT 27.8 % (39.0-51.0); HEMOGLOBIN 9.2 GM/DL (13.0-17.0); MEAN CELL VOLUME 84.2 FL (80.0-100.0); MEAN CORPUSCULAR HEMOGLOBIN 27.9 PG (27.0-34.0); MEAN CORPUSCULAR HGB CONC 33.2 % (32.0-36.0); MEAN PLATELET VOLUME 6.8 FL (7.0-11.0); PLATELET COUNT 605 TH/MM3 (150-450); RED CELL DISTRIBUTION WIDTH 13.1 % (11.6-17.2); WHITE BLOOD COUNT 6.1 TH/MM3 (4.0-11.0)
[2017-12-22 06:39] LABS: BICARBONATE 27.2 MEQ/L (21.0-32.0); CALCIUM 9.1 MG/DL (8.5-10.1); CREATININE 1.53 MG/DL (0.60-1.30)
[2017-12-22 06:47] LABS: INTERNATIONAL NORMALIZED RATIO 1.1 RATIO; PROTHROMBIN TIME - PATIENT 10.9 SEC (9.8-11.6)
[2017-12-22] MEDS ORDERED: SODIUM BICARBONATE 8.4% INJ 0 ML ONE (08:04)
[2017-12-22] MEDS ORDERED: LIDOCAINE 1%/EPINEPHrine 1:100,000 SOLN 50 ML VIAL ONE (08:04)
[2017-12-22] MEDS: SODIUM CHLORIDE 0.9% FLUSH 10 ML FLUSH IV FLUSH SCH ×2 (09:00→21:00)
[2017-12-22] MEDS: NYSTATIN SUSP 500,000 U/5 ML CUP SWISH-SWAL SCH ×4 (09:00→21:58)
[2017-12-22] MEDS: GABAPENTIN 300 MG CAP PO SCH ×2 (09:00→21:58)
[2017-12-22] MEDS: ENOXAPARIN SODIUM 40 MG/0.4 ML SYRINGE SQ SCH (09:20)
[2017-12-22] MEDS ORDERED: DEXAMETHASONE SOD PHOS 4 MG/ML VIAL IV ONE (12:00)
[2017-12-22] MEDS ORDERED: ONDANSETRON HCL 4 MG/2 ML VIAL IV ONE (12:00)
[2017-12-22] MEDS ORDERED: LIDOCAINE HCL 1% PF 5 ML SYRINGE OTHER ONE (12:00)
[2017-12-22] MEDS ORDERED: SUCCINYLCHOLINE CHLORIDE 100 MG/5 ML SYRINGE IV PUSH ONE (12:00)
[2017-12-22] MEDS ORDERED: SODIUM CHLOR 0.9% 250 ML INJ 250 ML IV ONE (12:00)
[2017-12-22] MEDS ORDERED: ePHEDrine/NS 25 MG/5 ML SYRINGE IV ONE (12:00)
[2017-12-22] MEDS ORDERED: PHENYLEPH/NS 1000 MCG/10 ML SYR IV ONE (12:00)
[2017-12-22] MEDS ORDERED: ROCURONIUM INJ 50 MG/5 ML SYRINGE IV PUSH ONE (12:00)
[2017-12-22] MEDS ORDERED: PROPOFOL 200 MG/20 ML AMP IV ONE (12:00)
[2017-12-22] MEDS ORDERED: ACETAMINOPHEN 1000 MG/100 ML 100 ML IV ONE (13:00)
[2017-12-22] MEDS ORDERED: BUPIVACAINE HCL PF 0.25% 30 ML VIAL ONE (13:31)
--- NOTE | 2017-12-22 15:15 | PD.OP ---
cc: Madi Rosenberg MD Operative Report Date of Surgery: Dec 22, 2017 Preoperative Diagnosis: (1) Fever (2) Headache (3) Elevated sedimentation rate (4) Encephalopathy Postoperative Diagnosis: (1) Headache (2) Elevated sedimentation rate (3) Fever (4) Encephalopathy Procedure: Right temporal artery biopsy Anesthesia: Surgeon: Madi Rosenberg Podiatric Aide(s): Mary Jo STUART Operation and Findings: EBL: 2 cc Operative findings: Uncomplicated right temporal artery biopsy Procedure in detail: The patient was taken to the operating room placed in supine position. General anesthesia was induced. The head was turned slightly to the left. The right temporal area was prepped and draped in usual sterile fashion. Local anesthetic without epinephrine was injected in the skin and subcutaneous tissue anterior and superior to the tragus of the right ear and a 3 cm incision made. The superficial temporal fascia was divided. Careful blunt dissection revealed the underlying temporal artery. This was carefully from surrounding tissues and from the temporal vein. Branches were ligated with 4-0 silk suture. Proximal and distal aspect of the superficial temporal artery in the operative field were then ligated with 4-0 silk suture in about 15 mm of artery was obtained and sent as permanent specimen in formalin to pathology. There was good hemostasis in the operative field. The incision was closed with deep dermal simple interrupted 4-0 Vicryl suture and skin with running subcuticular 5-0 Monocryl and Dermabond. The patient tolerated procedure well and was x-rayed and taken to PACU in stable condition. Madi Rosenberg MD Dec 22, 2017 15:14
[2017-12-22] MEDS ORDERED: *morphine SULFATE 4 MG/ML PERIprocedure ONLY ONE (15:48)
[2017-12-22] MEDS ORDERED: DO NOT ADM ANY ANTICOAGULANT DRUGS PRN (16:00)
[2017-12-22] MEDS: DOXAZOSIN MESYLATE 2 MG TAB PO SCH (16:11)
--- NOTE | 2017-12-22 17:47 | HHI.IDPN ---
Note Infectious Disease Note . Patient underwent temporal artery biopsy today. He appears lethargic but answers questions though slowly. He follows commands. When testing his visual thacker he moves his eyes very slowly. 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 Still having low-grade fever. Temp max 100.4. 2D echocardiogram showed no vegetation. C-reactive protein is highly elevated. The sedimentation rate is elevated. CURTIS negative. Rheumatoid factor negative. Presented with altered mental status. The patient's notes that he was having difficulty with ambulation and he fell at home. He was initially brought to [facility] ED and then over to [facility]. He was evaluated on 12/08/2017. The patient apparently was having headache and dizziness for 2 days. When he first arrived, he was noted to be closing his eyes during the interview and that he was a poor historian. He also was noted to have a high systolic blood pressure. She notes that he had complained of headaches off and on, but that he had at most sustained headaches for a couple days before admission and that he was starting to develop dizziness. She also reports that he was having frequent urination, although he wears a diaper. PAST MEDICAL HISTORY: Hypertension. Noted to be on anticoagulation which reportedly started within the recent weeks. ALLERGIES: No known drug allergies. MEDICATIONS: Current Medications Medications (Trade) Dose Ordered Sig/Karli Route PRN Reason Start Time Stop Time Status Last Admin Dose Admin Sodium Chloride (NS Flush) 2 ml UNSCH PRN IV FLUSH FLUSH AFTER USING IV ACCESS 12/08/17 15:45 Sodium Chloride (NS Flush) 2 ml BID IV FLUSH 12/08/17 21:00 12/21/17 22:34 Amlodipine Besylate (Norvasc) 10 mg DAILY PO 12/09/17 09:00 12/22/17 16:11 Gabapentin (Neurontin) 300 mg BID PO 12/08/17 21:00 12/21/17 22:33 Hydralazine HCl (Apresoline Inj) 10 mg Q30M PRN IV PUSH bp>160/70 12/08/17 20:45 12/13/17 18:06 Acetaminophen (Tylenol) 650 mg Q6HR PRN PO headache/fever/pain1-4 12/09/17 15:15 12/20/17 09:25 Doxazosin Mesylate (Cardura) 2 mg DAILY PO 12/10/17 09:00 12/22/17 16:11 Labetalol HCl (Trandate Inj) 10 mg Q6H PRN IV PUSH SYS BP GREATER THAN 170 MMHG 12/09/17 16:15 12/16/17 05:24 Acetaminophen (Tylenol Supp) 650 mg Q6H PRN RECTAL fever 12/10/17 04:45 12/18/17 16:07 Dextrose/Sodium Chloride 1,000 ml @ 50 mls/hr Q20H IV 12/11/17 08:30 12/21/17 17:13 Nystatin (Mycostatin Liq) 5 ml QID SWISH-SWAL 12/11/17 13:00 12/22/17 16:11 Metoprolol Tartrate (Lopressor) 25 mg Q8H PO 12/12/17 16:00 12/22/17 16:11 Clonidine (Catapres) 0.1 mg Q6H PRN PO SBP>160, DBP>90 12/12/17 15:45 12/18/17 01:51 Enoxaparin Sodium (Lovenox Inj) 40 mg Q24H SQ 12/20/17 11:00 12/21/17 08:33 Lactated Ringer's 1,000 ml @ 30 mls/hr Q24H PRN IV SEE LABEL COMMENTS 12/21/17 22:00 12/24/17 21:59 Sodium Chloride 500 ml @ 30 mls/hr [id number] PRN IV SEE LABEL COMMENTS 12/21/17 22:00 12/24/17 21:59 Povidone Iodine (Betadine 5% Antisepsis Kit) 1 applic CATHEAD OPERATOR PRN EACH NARE SEE LABEL COMMENTS 12/21/17 22:00 12/24/17 21:59 Chlorhexidine Gluconate (Chlorhexidine 2% Cloth) 3 pack CATHEAD OPERATOR PRN TOPICAL SEE LABEL COMMENTS 12/21/17 22:00 12/24/17 21:59 Miscellaneous Information ALL NURSING DEPARTME... UNSCH PRN .XX SEE LABEL COMMENTS 12/22/17 16:00 12/23/17 15:59 SOCIAL HISTORY: The patient was born in [place]. Positive tobacco use, 1 pack a day. No alcohol. No illicit drugs. The patient is . Objective: Vital Signs Date Time Temp Pulse Resp B/P (MAP) Pulse Ox O2 Delivery O2 Flow Rate FiO2 12/22/17 16:26 81 12/22/17 16:07 97.8 86 18 161/79 (106) 97 12/22/17 15:45 89 22 162/80 (107) 98 Simple Mask 5 12/22/17 15:30 80 17 140/69 (92) 94 Simple Mask 5 12/22/17 15:17 98.9 78 14 146/70 (95) 99 Simple Mask 5 12/22/17 11:29 99.0 73 18 132/74 (93) 94 12/22/17 11:00 68 12/22/17 09:12 99.0 72 18 123/53 (76) 93 12/22/17 07:00 70 12/22/17 06:01 74 12/22/17 05:02 82 12/22/17 04:24 99.6 77 20 141/60 (87) 93 12/22/17 04:00 70 12/22/17 03:06 69 12/22/17 02:04 77 12/22/17 01:04 82 12/22/17 00:07 99.2 84 18 155/82 (106) 95 12/22/17 00:06 86 12/21/17 23:02 79 12/21/17 22:07 82 12/21/17 21:00 85 12/21/17 20:13 100.4 83 20 154/77 (102) 94 12/21/17 20:02 82 12/21/17 19:04 87 Laboratory Tests Test 12/22/17 05:30 White Blood Count 6.1 TH/MM3 Red Blood Count 3.30 MIL/MM3 Hemoglobin 9.2 GM/DL Hematocrit 27.8 % Mean Corpuscular Volume 84.2 FL Mean Corpuscular Hemoglobin 27.9 PG Mean Corpuscular Hemoglobin Concent 33.2 % Red Cell Distribution Width 13.1 % Platelet Count 605 TH/MM3 Mean Platelet Volume 6.8 FL Laboratory Tests Test 12/22/17 05:30 Blood Urea Nitrogen 22 MG/DL Creatinine 1.53 MG/DL Random Glucose 80 MG/DL Calcium Level 9.1 MG/DL Sodium Level 141 MEQ/L Potassium Level 4.8 MEQ/L Chloride Level 106 MEQ/L Carbon Dioxide Level 27.2 MEQ/L Anion Gap 8 MEQ/L Estimat Glomerular Filtration Rate 54 ML/MIN Laboratory Tests Test 12/17/17 10:15 12/18/17 08:34 12/18/17 12:21 Follicle Stimulating Hormone 2.5 mIU/mL Luteinizing Hormone 0.7 mIU/mL Blood Urea Nitrogen 25 MG/DL Creatinine 1.63 MG/DL Random Glucose 85 MG/DL Total Protein 7.4 GM/DL Albumin 2.8 GM/DL Calcium Level 9.5 MG/DL Alkaline Phosphatase 84 U/L Aspartate Amino Transf (AST/SGOT) 52 U/L Alanine Aminotransferase (ALT/SGPT) 65 U/L Total Bilirubin 0.5 MG/DL Sodium Level 139 MEQ/L Potassium Level 4.7 MEQ/L Chloride Level 102 MEQ/L Carbon Dioxide Level 29.3 MEQ/L Anion Gap 8 MEQ/L Estimat Glomerular Filtration Rate 50 ML/MIN C-Reactive Protein 13.00 MG/DL Laboratory Tests Test 12/16/17 12:38 Erythrocyte Sedimentation Rate 96 mm/hr Imaging: Chest X-Ray 12/16/17 0000 Signed Impressions: Service Date/Time: Saturday, December 16, 2017 12:59 - CONCLUSION: 1. Stable mild pulmonary vascular congestion. 2. No significant interval change. Michael Eisenberg MD Lumbar Puncture Fluoroscopy 12/11/17 0000 Signed Impressions: Service Date/Time: November 11:03 - CONCLUSION: Uncomplicated fluoroscopically guided lumbar puncture with pressures as above. Michael Eisenberg MD Head CT 12/10/17 0000 Signed Impressions: Service Date/Time: Sunday, December 10, 2017 12:58 - CONCLUSION: 1. Sellar/suprasellar mass which has been described on recent studies including MRI of the brain. 2. Stable cerebral atrophy and moderate periventricular/subcortical white matter small vessel ischemic changes bilaterally. 3. 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 4. No acute infarct, acute hemorrhage, midline shift or extra-axial bleed. Thien Elkins MD Chest X-Ray 12/10/17 0000 Signed Impressions: Service Date/Time: Sunday, December 10, 2017 13:30 - CONCLUSION: New parenchymal changes right base Bernardino Santo MD FACR Lower Extremity Ultrasound [id number] Signed Impressions: Service Date/Time: Friday, December 08, 2017 18:53 - CONCLUSION: Normal examination. Manuel Perez MD Brain MRI 12/08/17 1908 Signed Impressions: Service Date/Time: Friday, December 08, 2017 21:51 - CONCLUSION: 1. 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 This is of mixed signal intensity. No definite enhancement. 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 Followup study in 3 months recommended for stability. 2. Cerebral atrophy with old bilateral basal ganglia lacunar infarcts. 3. The Sean Rodriguez MD PHYSICAL EXAMINATION: GENERAL: No acute distress. Lethargic HEENT: The head reveals mild ecchymosis at the superior orbital region at the right frontal aspect of the head and also at the area below the right orbit. Extraocular movements appear grossly intact. Pupils reactive to light. No icterus. Oropharynx : Moist mucosa. NECK: Supple without adenopathy or swelling. LUNGS: Decreased breath sounds. HEART: Regular S1, S2, 2/6 systolic ejection murmur at the left sternal border. No rubs. No gallops. ABDOMEN: Bowel sounds diminished. Soft, no tenderness. EXTREMITIES: No clubbing, no cyanosis, no edema. SKIN: No diffuse rash. NEUROLOGIC: Nonfocal. Decreased strength. PSYCHIATRIC: Calm and cooperative. IMPRESSION: 1. Fever and abnormal urinalysis in a patient presenting with headache and dizziness. Also abnormal chest x-ray. Continues to have fever. Negative workup to date. The sedimentation rate is elevated. C-reactive protein is elevated Fever probably not infection related. Rule out autoimmune disease. Rule out temporal arteritis/vasculitis. 2. Lumbar puncture revealed 3 white cells in tube #4 and normal glucose with elevated protein. Does not appear to have central nervous system infection. CSF culture is negative. 3. Abnormality on MRI. The patient with known pituitary mass. This is felt to be a pituitary adenoma. 4. Pneumonia based on abnormal chest x-ray with parenchymal changes at the right base. However, the patient does not appear to be coughing or producing sputum and possibly this could be from aspiration. 5. Acute renal disease. 6. Altered mental status. Very minimal improvement RECOMMENDATIONS: 1. Temporal artery biopsy for working up the elevated temperature in light of elevated sedimentation rate. A positive biopsy would be useful in determining treatment going forward. No evidence of infection on workup thus far. He continues to have FUO. 2. Monitor temperature. 3. Monitor clinical status. 4. Continue to hold off on antibiotics for now. I do not have any evidence for infection. 5. Follow the temporal artery biopsy pathology. May need to get neurology input. Ghulam Ascencio MD Dec 22, 2017 17:47
--- NOTE | 2017-12-22 19:30 | HHI.PR ---
Subjective Remarks Deferred entry, the patient was seen earlier at 2 PM. As per RN the patient has been confused. Patient denies cp/sob Afebrile Objective Vitals Vital Signs Date Time Temp Pulse Resp B/P (MAP) Pulse Ox O2 Delivery O2 Flow Rate FiO2 12/22/17 16:26 81 12/22/17 16:07 97.8 86 18 161/79 (106) 97 12/22/17 15:45 89 22 162/80 (107) 98 Simple Mask 5 12/22/17 15:30 80 17 140/69 (92) 94 Simple Mask 5 12/22/17 15:17 98.9 78 14 146/70 (95) 99 Simple Mask 5 12/22/17 11:29 99.0 73 18 132/74 (93) 94 12/22/17 11:00 68 12/22/17 09:12 99.0 72 18 123/53 (76) 93 12/22/17 07:00 70 12/22/17 06:01 74 12/22/17 05:02 82 12/22/17 04:24 99.6 77 20 141/60 (87) 93 12/22/17 04:00 70 12/22/17 03:06 69 12/22/17 02:04 77 12/22/17 01:04 82 12/22/17 00:07 99.2 84 18 155/82 (106) 95 12/22/17 00:06 86 12/21/17 23:02 79 12/21/17 22:07 82 12/21/17 21:00 85 12/21/17 20:13 100.4 83 20 154/77 (102) 94 12/21/17 20:02 82 I/O 12/21/17 12/21/17 12/21/17 12/22/17 12/22/17 12/22/17 07:00 15:00 23:00 07:00 15:00 23:00 Intake Total 2090 ml 0 ml 500 ml 480 ml Output Total 425 ml 250 ml 550 ml 705 ml Balance -425 ml 1840 ml -550 ml -205 ml 480 ml Intake Oral 840 ml 0 ml 480 ml IV Total 1250 ml Other 500 ml Output Urine Total 425 ml 250 ml 550 ml 700 ml Estimated Blood Loss 5 ml # Voids 3 # Bowel Movements 0 Result Diagram: 12/22/17 0530 12/22/17 0530 Imaging Last Impressions Chest X-Ray 12/16/17 0000 Signed Impressions: Service Date/Time: Saturday, December 16, 2017 12:59 - CONCLUSION: 1. Stable mild pulmonary vascular congestion. 2. No significant interval change. Michael Eisenberg MD Lumbar Puncture Fluoroscopy 12/11/17 0000 Signed Impressions: Service Date/Time: November 11:03 - CONCLUSION: Uncomplicated fluoroscopically guided lumbar puncture with pressures as above. Michael Eisenberg MD Head CT 12/10/17 0000 Signed Impressions: Service Date/Time: Sunday, December 10, 2017 12:58 - CONCLUSION: 1. Sellar/suprasellar mass which has been described on recent studies including MRI of the brain. 2. Stable cerebral atrophy and moderate periventricular/subcortical white matter small vessel ischemic changes bilaterally. 3. 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 4. No acute infarct, acute hemorrhage, midline shift or extra-axial bleed. Thien Elkins MD Lower Extremity Ultrasound [id number] Signed Impressions: Service Date/Time: Friday, December 08, 2017 18:53 - CONCLUSION: Normal examination. Manuel Perez MD Brain MRI [id number] Signed Impressions: Service Date/Time: Friday, December 08, 2017 21:51 - CONCLUSION: 1. 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 This is of mixed signal intensity. No definite enhancement. 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 Followup study in 3 months recommended for stability. 2. Cerebral atrophy with old bilateral basal ganglia lacunar infarcts. 3. The Sean Rodriguez MD Objective Remarks Awake and alert nad PERRLA S1S2 RR, systolic III/ murmur, no rubs or gallops no edema in lower extremities Procedures 12/11- LP Medications and IVs Current Medications Medications (Trade) Dose Ordered Sig/Karli Route Start Time Stop Time Status Last Admin (NS Flush) 2 ml UNSCH PRN IV FLUSH 12/08/17 15:45 (NS Flush) 2 ml BID IV FLUSH 12/08/17 21:00 12/21/17 22:34 (Norvasc) 10 mg DAILY PO 12/09/17 09:00 12/22/17 16:11 (Neurontin) 300 mg BID PO 12/08/17 21:00 12/21/17 22:33 (Apresoline Inj) 10 mg Q30M PRN IV PUSH 12/08/17 20:45 12/13/17 18:06 (Tylenol) 650 mg Q6HR PRN PO 12/09/17 15:15 12/20/17 09:25 (Cardura) 2 mg DAILY PO 12/10/17 09:00 12/22/17 16:11 (Trandate Inj) 10 mg Q6H PRN IV PUSH 12/09/17 16:15 12/16/17 05:24 (Tylenol Supp) 650 mg Q6H PRN RECTAL 12/10/17 04:45 12/18/17 16:07 Dextrose/Sodium Chloride 1,000 ml @ 50 mls/hr Q20H IV 12/11/17 08:30 12/21/17 17:13 (Mycostatin Liq) 5 ml QID SWISH-SWAL 12/11/17 13:00 12/22/17 16:11 (Lopressor) 25 mg Q8H PO 12/12/17 16:00 12/22/17 16:11 (Catapres) 0.1 mg Q6H PRN PO 12/12/17 15:45 12/18/17 01:51 (Lovenox Inj) 40 mg Q24H SQ 12/20/17 11:00 12/21/17 08:33 Lactated Ringer's 1,000 ml @ 30 mls/hr Q24H PRN IV 12/21/17 22:00 12/24/17 21:59 Sodium Chloride 500 ml @ 30 mls/hr [id number] PRN IV 12/21/17 22:00 12/24/17 21:59 (Betadine 5% Antisepsis Kit) 1 applic SENIOR DATA ANALYST PRN EACH NARE 12/21/17 22:00 12/24/17 21:59 (Chlorhexidine 2% Cloth) 3 pack SENIOR DATA ANALYST PRN TOPICAL 12/21/17 22:00 12/24/17 21:59 Miscellaneous Information ALL NURSING DEPARTME... UNSCH PRN .XX 12/22/17 16:00 12/23/17 15:59 Urinary Catheter: No Vascular Central Line Catheter: No A/P Problem List: (1) Suprasellar mass ICD Code: R22.0 - Localized swelling, mass and lump, head Assessment and Plan Lethargy and Generalized Weakness 80% of his day is spent a sleep-like state, though his reports he is awake and listening despite having his eyes closed Encephalopathy secondary to sepsis is a possibility but low likelihood due to adequate treatment of infection without improvement in his affect Temporal artery biopsy is pending following elevated CRP and ESR, though the symptoms are not typical of that diagnosis Hypotestosteronism may be a partial contributor toward this symptomatology, testosterone shot given yesterday Sellar mass has thrown off a number of hormonal balances which may be contributing to his symptomatology as well Provigil may be considered, but that would only be for symptomatic relief and may not address underlying cause Sepsis with encephalopathy Urinary tract Infection- Pyuria, but culture negative Lung infiltrate possible aspiration CSF culture negative, blood culture negative Continue empiric coverage with Zosyn Appreciate Infectious Disease consulting Appreciate general surgery consulting 12/22 for temporal artery biopsy later today Hypotestosteronism Total testosterone was 7.1, repeat level less than 10 (normal begins at 240) Patient is on Lovenox which reduces blood clot risk, with PSA screening returning normal Testosterone shot given on 12/20 Appreciate endocrinology assisting sellar mass with visual disturbance/ dizziness/ falls chronic anticoagulation on coumadin - INR 1.1 on admission Appreciate neurology following Generalized Weakness (deconditioning) We will need intermediate rehab on discharge Intermittent hypertensive urgency Continue clonidine as needed Continue amlodipine Oral thrush Nystatin swish and swallow 4 times daily Left buttock wound Appreciate wound care team consult Moderate skin thickness ulcer Calamine lotion recommended DVT Prophylaxis Lovenox Discharge Planning monitor in the medical floor. Mike Hennessy MD Dec 22, 2017 19:30
[2017-12-23] VITALS (22 sets, daily range): BP systolic 131–146; BP diastolic 67–75; PULSE 56–77; RESP 16–18; TEMP 97.5–98.4; O2SAT 92–98
[2017-12-23] MEDS: METOPROLOL TARTRATE 25 MG TAB PO SCH ×3 (00:56→16:05)
[2017-12-23] MEDS: DEXT 5%-NACL 0.9% 1000 ML INJ 1,000 ML IV SCH ×2 (04:32→09:13)
[2017-12-23] MEDS: SODIUM CHLORIDE 0.9% FLUSH 10 ML FLUSH IV FLUSH SCH ×2 (08:05→22:21)
[2017-12-23] MEDS: GABAPENTIN 300 MG CAP PO SCH ×2 (08:05→22:21)
[2017-12-23] MEDS: DOXAZOSIN MESYLATE 2 MG TAB PO SCH (08:05)
[2017-12-23] MEDS: NYSTATIN SUSP 500,000 U/5 ML CUP SWISH-SWAL SCH ×4 (08:05→22:21)
[2017-12-23] MEDS: ENOXAPARIN SODIUM 40 MG/0.4 ML SYRINGE SQ SCH (11:00)
[2017-12-23 15:00] LABS: BICARBONATE 27.1 MEQ/L (21.0-32.0); CREATININE 1.82 MG/DL (0.60-1.30)
--- NOTE | 2017-12-23 16:37 | HHI.PR ---
Subjective Remarks Patient is more awake and conversant today. Denies chest pain or shortness of breath. A febrile. Objective Vitals Vital Signs Date Time Temp Pulse Resp B/P (MAP) Pulse Ox O2 Delivery O2 Flow Rate FiO2 12/23/17 15:05 98.1 76 18 139/70 (93) 92 12/23/17 15:00 72 12/23/17 11:20 97.5 77 18 139/75 (96) 97 12/23/17 11:00 58 12/23/17 07:58 98.0 18 146/67 (93) 98 12/23/17 07:00 69 12/23/17 06:01 61 12/23/17 05:03 62 12/23/17 04:23 97.7 66 16 140/69 (92) 97 12/23/17 04:08 60 12/23/17 03:04 61 12/23/17 02:02 66 12/23/17 01:04 72 12/23/17 00:18 98.4 77 16 131/71 (91) 97 12/23/17 00:05 70 12/22/17 23:02 66 12/22/17 22:01 71 12/22/17 21:07 68 12/22/17 19:55 73 12/22/17 19:43 98.7 77 18 132/70 (90) 96 12/22/17 19:42 99.1 12/22/17 19:05 76 I/O 12/22/17 12/22/17 12/22/17 12/23/17 12/23/17 12/23/17 06:59 14:59 22:59 06:59 14:59 22:59 Intake Total 0 ml 500 ml 480 ml 1120 ml Output Total 550 ml 705 ml 600 ml Balance -550 ml -205 ml 480 ml 520 ml Intake Oral 0 ml 480 ml 120 ml IV Total 1000 ml Other 500 ml Output Urine Total 550 ml 700 ml 600 ml Estimated Blood Loss 5 ml # Bowel Movements 0 Result Diagram: 12/22/17 0530 12/23/17 [id number] Objective Remarks Awake and alert nad PERRLA S1S2 RR, systolic III/ murmur, no rubs or gallops no edema in lower extremities Abdomen is mildly distended, firm, mildly tender to palpation diffusely, no rebound tenderness or guarding noted. Bowel sounds present Procedures 12/11- LP Medications and IVs Current Medications Medications (Trade) Dose Ordered Sig/Karli Route Start Time Stop Time Status Last Admin (NS Flush) 2 ml UNSCH PRN IV FLUSH 12/08/17 15:45 (NS Flush) 2 ml BID IV FLUSH 12/08/17 21:00 12/21/17 22:34 (Norvasc) 10 mg DAILY PO 12/09/17 09:00 12/23/17 08:05 (Neurontin) 300 mg BID PO 12/08/17 21:00 12/23/17 08:05 (Apresoline Inj) 10 mg Q30M PRN IV PUSH 12/08/17 20:45 12/13/17 18:06 (Tylenol) 650 mg Q6HR PRN PO 12/09/17 15:15 12/20/17 09:25 (Cardura) 2 mg DAILY PO 12/10/17 09:00 12/23/17 08:05 (Trandate Inj) 10 mg Q6H PRN IV PUSH 12/09/17 16:15 12/16/17 05:24 (Tylenol Supp) 650 mg Q6H PRN RECTAL 12/10/17 04:45 12/18/17 16:07 Dextrose/Sodium Chloride 1,000 ml @ 50 mls/hr Q20H IV 12/11/17 08:30 12/23/17 04:32 (Mycostatin Liq) 5 ml QID SWISH-SWAL 12/11/17 13:00 12/23/17 13:23 (Lopressor) 25 mg Q8H PO 12/12/17 16:00 12/23/17 16:05 (Catapres) 0.1 mg Q6H PRN PO 12/12/17 15:45 12/18/17 01:51 (Lovenox Inj) 40 mg Q24H SQ 12/20/17 11:00 12/21/17 08:33 Lactated Ringer's 1,000 ml @ 30 mls/hr Q24H PRN IV 12/21/17 22:00 12/24/17 21:59 Sodium Chloride 500 ml @ 30 mls/hr [id number] PRN IV 12/21/17 22:00 12/24/17 21:59 (Betadine 5% Antisepsis Kit) 1 applic SENIOR LANDSCAPE ARCHITECT PRN EACH NARE 12/21/17 22:00 12/24/17 21:59 (Chlorhexidine 2% Cloth) 3 pack SENIOR LANDSCAPE ARCHITECT PRN TOPICAL 12/21/17 22:00 12/24/17 21:59 Urinary Catheter: No Vascular Central Line Catheter: No A/P Problem List: (1) Suprasellar mass ICD Code: R22.0 - Localized swelling, mass and lump, head Assessment and Plan Lethargy and Generalized Weakness 80% of his day is spent a sleep-like state, though his reports he is awake and listening despite having his eyes closed Encephalopathy secondary to sepsis is a possibility but low likelihood due to adequate treatment of infection without improvement in his affect Temporal artery biopsy is pending following elevated CRP and ESR, though the symptoms are not typical of that diagnosis Hypotestosteronism may be a partial contributor toward this symptomatology, testosterone shot given yesterday Sellar mass has thrown off a number of hormonal balances which may be contributing to his symptomatology as well Sepsis with encephalopathy Urinary tract Infection- Pyuria, but culture negative Lung infiltrate possible aspiration CSF culture negative, blood culture negative Continue empiric coverage with Deniasyn Arturo Infectious Disease consulting Appreciate general surgery consulting 12/22 for temporal artery biopsy later today 12/23 status post temporal artery biopsy on 12/23. Pathology pending. Hypotestosteronism Total testosterone was 7.1, repeat level less than 10 (normal begins at 240) Patient is on Lovenox which reduces blood clot risk, with PSA screening returning normal Testosterone shot given on 12/20 Endocrinology consulted. Follow-up recommendations. sellar mass with visual disturbance/ dizziness/ falls chronic anticoagulation on coumadin - INR 1.1 on admission Neurosurgery consulted, recommended endocrinology workup. Suspected multifactorial encephalopathy. Ophthalmology consulted. Dr. Parada recommended outpatient follow-up for dilated exam and formal Rivera visual field test. Neurology consulted. Status post lumbar puncture with fluid results negative for suspicion of bacterial viral meningitis. Generalized Weakness (deconditioning) We will need residential rehab on discharge Intermittent hypertensive urgency Continue clonidine as needed Continue amlodipine BP stable. Oral thrush Nystatin swish and swallow 4 times daily Left buttock wound Appreciate wound care team consult Moderate skin thickness ulcer Calamine lotion recommended Constipation. Check abdomen KUB. Patient with no BM since 419 and transferrin abdomen. I will give MiraLAX p.o. [address] the constipation protocol. DVT Prophylaxis Lovenox Discharge Planning monitor in the medical floor. Pending pathology results, ID clearance, relief of constipation. Mike Hennessy MD Dec 23, 2017 16:37
[2017-12-23] MEDS ORDERED: POLYETHYLENE GLYCOL 17 GM PKG PO ONE (17:00)
[2017-12-23] MEDS ORDERED: BISACODYL 10 MG SUPP RECTAL ONE (17:00)
[2017-12-24] VITALS (15 sets, daily range): BP systolic 104–150; BP diastolic 65–86; PULSE 60–86; RESP 18–20; TEMP 97.8–98.6; O2SAT 95–98
[2017-12-24] MEDS: METOPROLOL TARTRATE 25 MG TAB PO SCH ×3 (00:08→15:28)
[2017-12-24] MEDS: DEXT 5%-NACL 0.9% 1000 ML INJ 1,000 ML IV SCH (00:11)
[2017-12-24] MEDS: SODIUM CHLORIDE 0.9% FLUSH 10 ML FLUSH IV FLUSH SCH ×2 (09:00→21:24)
[2017-12-24 09:32] LABS: BICARBONATE 25.8 MEQ/L (21.0-32.0); CALCIUM 8.9 MG/DL (8.5-10.1); CREATININE 1.57 MG/DL (0.60-1.30)
[2017-12-24] MEDS: DOXAZOSIN MESYLATE 2 MG TAB PO SCH (09:36)
[2017-12-24] MEDS: NYSTATIN SUSP 500,000 U/5 ML CUP SWISH-SWAL SCH ×4 (09:36→21:24)
[2017-12-24] MEDS: ENOXAPARIN SODIUM 40 MG/0.4 ML SYRINGE SQ SCH (09:36)
[2017-12-24] MEDS: GABAPENTIN 300 MG CAP PO SCH ×2 (09:36→21:24)
--- NOTE | 2017-12-24 12:47 | HHI.IDPN ---
Note Infectious Disease Note . Patient is more awake. He now has his right eye more open. This reports that he was up in a chair earlier. He answers questions but does not verbally communicate without being asked questions. His breathing appears slightly labored. Temperature is improved. He is afebrile. 2D echocardiogram showed no vegetation. C-reactive protein is highly elevated. The sedimentation rate is elevated. CURTIS negative. Rheumatoid factor negative. Presented with altered mental status. The patient's notes that he was having difficulty with ambulation and he fell at home. He was initially brought to [facility] ED and then over to [facility]. He was evaluated on 12/08/2017. The patient apparently was having headache and dizziness for 2 days. When he first arrived, he was noted to be closing his eyes during the interview and that he was a poor historian. He also was noted to have a high systolic blood pressure. She notes that he had complained of headaches off and on, but that he had at most sustained headaches for a couple days before admission and that he was starting to develop dizziness. She also reports that he was having frequent urination, although he wears a diaper. PAST MEDICAL HISTORY: Hypertension. Noted to be on anticoagulation which reportedly started within the recent weeks. ALLERGIES: No known drug allergies. MEDICATIONS: Current Medications Medications (Trade) Dose Ordered Sig/Karli Route PRN Reason Start Time Stop Time Status Last Admin Dose Admin Sodium Chloride (NS Flush) 2 ml UNSCH PRN IV FLUSH FLUSH AFTER USING IV ACCESS 12/08/17 15:45 Sodium Chloride (NS Flush) 2 ml BID IV FLUSH 12/08/17 21:00 12/23/17 22:21 Amlodipine Besylate (Norvasc) 10 mg DAILY PO 12/09/17 09:00 12/24/17 09:36 Gabapentin (Neurontin) 300 mg BID PO 12/08/17 21:00 12/24/17 09:36 Hydralazine HCl (Apresoline Inj) 10 mg Q30M PRN IV PUSH bp>160/70 12/08/17 20:45 12/13/17 18:06 Acetaminophen (Tylenol) 650 mg Q6HR PRN PO headache/fever/pain1-4 12/09/17 15:15 12/20/17 09:25 Doxazosin Mesylate (Cardura) 2 mg DAILY PO 12/10/17 09:00 12/24/17 09:36 Labetalol HCl (Trandate Inj) 10 mg Q6H PRN IV PUSH SYS BP GREATER THAN 170 MMHG 12/09/17 16:15 12/16/17 05:24 Acetaminophen (Tylenol Supp) 650 mg Q6H PRN RECTAL fever 12/10/17 04:45 12/18/17 16:07 Dextrose/Sodium Chloride 1,000 ml @ 50 mls/hr Q20H IV 12/11/17 08:30 12/24/17 00:11 Nystatin (Mycostatin Liq) 5 ml QID SWISH-SWAL 12/11/17 13:00 12/24/17 12:30 Metoprolol Tartrate (Lopressor) 25 mg Q8H PO 12/12/17 16:00 12/24/17 09:36 Clonidine (Catapres) 0.1 mg Q6H PRN PO SBP>160, DBP>90 12/12/17 15:45 12/18/17 01:51 Enoxaparin Sodium (Lovenox Inj) 40 mg Q24H SQ 12/20/17 11:00 12/24/17 09:36 Lactated Ringer's 1,000 ml @ 30 mls/hr Q24H PRN IV SEE LABEL COMMENTS 12/21/17 22:00 12/24/17 21:59 Sodium Chloride 500 ml @ 30 mls/hr [id number] PRN IV SEE LABEL COMMENTS 12/21/17 22:00 12/24/17 21:59 Povidone Iodine (Betadine 5% Antisepsis Kit) 1 applic RIBBING MACHINE OPERATOR PRN EACH NARE SEE LABEL COMMENTS 12/21/17 22:00 12/24/17 21:59 Chlorhexidine Gluconate (Chlorhexidine 2% Cloth) 3 pack RIBBING MACHINE OPERATOR PRN TOPICAL SEE LABEL COMMENTS 12/21/17 22:00 12/24/17 21:59 SOCIAL HISTORY: The patient was born in [place]. Positive tobacco use, 1 pack a day. No alcohol. No illicit drugs. The patient is . Objective: Vital Signs Date Time Temp Pulse Resp B/P (MAP) Pulse Ox O2 Delivery O2 Flow Rate FiO2 12/24/17 12:26 98.3 86 18 128/66 (86) 96 12/24/17 09:19 97.8 74 18 149/86 (107) 95 12/24/17 07:00 74 12/24/17 06:07 65 12/24/17 05:03 64 12/24/17 04:31 98.4 69 18 104/68 (80) 96 12/24/17 04:02 60 12/24/17 03:01 67 12/24/17 02:04 68 12/24/17 01:03 68 12/23/17 23:58 98.4 74 16 143/68 (93) 95 12/23/17 23:44 66 12/23/17 23:13 76 12/23/17 22:00 69 12/23/17 21:05 56 12/23/17 20:47 74 12/23/17 20:32 98.3 77 16 135/72 (93) 95 12/23/17 15:05 98.1 76 18 139/70 (93) 92 12/23/17 15:00 72 Laboratory Tests Test 12/23/17 14:17 12/24/17 08:01 Blood Urea Nitrogen 28 MG/DL 24 MG/DL Creatinine 1.82 MG/DL 1.57 MG/DL Random Glucose 156 MG/DL 69 MG/DL Calcium Level 9.0 MG/DL 8.9 MG/DL Sodium Level 141 MEQ/L 142 MEQ/L Potassium Level 4.3 MEQ/L 4.3 MEQ/L Chloride Level 106 MEQ/L 108 MEQ/L Carbon Dioxide Level 27.1 MEQ/L 25.8 MEQ/L Anion Gap 8 MEQ/L 8 MEQ/L Estimat Glomerular Filtration Rate 44 ML/MIN 52 ML/MIN Laboratory Tests Test 12/16/17 12:38 Erythrocyte Sedimentation Rate 96 mm/hr Imaging: Chest X-Ray 12/16/17 0000 Signed Impressions: Service Date/Time: Saturday, December 16, 2017 12:59 - CONCLUSION: 1. Stable mild pulmonary vascular congestion. 2. No significant interval change. Michael Eisenberg MD Lumbar Puncture Fluoroscopy 12/11/17 0000 Signed Impressions: Service Date/Time: November 11:03 - CONCLUSION: Uncomplicated fluoroscopically guided lumbar puncture with pressures as above. Michael Eisenberg MD Head CT 12/10/17 0000 Signed Impressions: Service Date/Time: Sunday, December 10, 2017 12:58 - CONCLUSION: 1. Sellar/suprasellar mass which has been described on recent studies including MRI of the brain. 2. Stable cerebral atrophy and moderate periventricular/subcortical white matter small vessel ischemic changes bilaterally. 3. 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 4. No acute infarct, acute hemorrhage, midline shift or extra-axial bleed. Thien Elkins MD Chest X-Ray 12/10/17 0000 Signed Impressions: Service Date/Time: Sunday, December 10, 2017 13:30 - CONCLUSION: New parenchymal changes right base Bernardino Santo MD FACR Lower Extremity Ultrasound [id number]/08/[id number] Signed Impressions: Service Date/Time: Friday, December 08, 2017 18:53 - CONCLUSION: Normal examination. Manuel Perez MD Brain MRI [id number] Signed Impressions: Service Date/Time: Friday, December 08, 2017 21:51 - CONCLUSION: 1. 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 This is of mixed signal intensity. No definite enhancement. 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 Followup study in 3 months recommended for stability. 2. Cerebral atrophy with old bilateral basal ganglia lacunar infarcts. 3. The Sean Rodriguez MD PHYSICAL EXAMINATION: GENERAL: No acute distress. HEENT: The mild ecchymosis at the superior orbital region at the right frontal aspect of the head and also at the area below the right orbit has faded. Extraocular movements appear grossly intact. Pupils reactive to light. No icterus. Oropharynx : Moist mucosa. NECK: Supple without adenopathy or swelling. LUNGS: Decreased breath sounds. HEART: Regular S1, S2, 2/6 systolic ejection murmur at the left sternal border. No rubs. No gallops. ABDOMEN: Bowel sounds diminished. Soft, no tenderness. EXTREMITIES: No clubbing, no cyanosis, no edema. SKIN: No diffuse rash. NEUROLOGIC: Nonfocal. Decreased strength. PSYCHIATRIC: Calm and cooperative. IMPRESSION: 1. Fever and abnormal urinalysis in a patient presenting with headache and dizziness. Also abnormal chest x-ray. Continues to have fever. Negative workup to date. The sedimentation rate is elevated. C-reactive protein is elevated Fever probably not infection related. Rule out autoimmune disease. Rule out temporal arteritis/vasculitis. Temporal artery biopsy does not reveal changes of temporal arteritis. 2. Lumbar puncture revealed 3 white cells in tube #4 and normal glucose with elevated protein. Does not appear to have central nervous system infection. CSF culture is negative. 3. Abnormality on MRI. The patient with known pituitary mass. This is felt to be a pituitary adenoma. 4. Pneumonia based on abnormal chest x-ray with parenchymal changes at the right base. However, the patient does not appear to be coughing or producing sputum and possibly this could be from aspiration. 5. Acute renal disease. 6. Altered mental status. Appears to be improving. No evidence of infection on workup. RECOMMENDATIONS: Discussed with Dr. Ray. Patient to be treated for vasculitis since The symptoms suggested vasculitis and infection workup has been negative. No antibiotics necessary. He can be discharged from ID standpoint. Ghulam Ascencio MD Dec 24, 2017 12:47
--- NOTE | 2017-12-24 13:20 | HHI.PR ---
Subjective Remarks Patient is sitting having breakfast. Denies chest pain, shortness of breath. No fever since Objective Vitals Vital Signs Date Time Temp Pulse Resp B/P (MAP) Pulse Ox O2 Delivery O2 Flow Rate FiO2 12/24/17 12:26 98.3 86 18 128/66 (86) 96 12/24/17 09:19 97.8 74 18 149/86 (107) 95 12/24/17 07:00 74 12/24/17 06:07 65 12/24/17 05:03 64 12/24/17 04:31 98.4 69 18 104/68 (80) 96 12/24/17 04:02 60 12/24/17 03:01 67 12/24/17 02:04 68 12/24/17 01:03 68 12/23/17 23:58 98.4 74 16 143/68 (93) 95 12/23/17 23:44 66 12/23/17 23:13 76 12/23/17 22:00 69 12/23/17 21:05 56 12/23/17 20:47 74 12/23/17 20:32 98.3 77 16 135/72 (93) 95 12/23/17 15:05 98.1 76 18 139/70 (93) 92 12/23/17 15:00 72 I/O 12/23/17 12/23/17 12/23/17 12/24/17 12/24/17 12/24/17 07:00 15:00 23:00 07:00 15:00 23:00 Intake Total 1120 ml 1200 ml 1000 ml Output Total 600 ml 750 ml 400 ml Balance 520 ml 450 ml 600 ml Intake Oral 120 ml 1200 ml IV Total 1000 ml 1000 ml Output Urine Total 600 ml 750 ml 400 ml # Voids 1 1 # Bowel Movements 1 2 Result Diagram: 12/22/17 0530 12/24/17 0801 Imaging Last Impressions Chest X-Ray 12/16/17 0000 Signed Impressions: Service Date/Time: Saturday, December 16, 2017 12:59 - CONCLUSION: 1. Stable mild pulmonary vascular congestion. 2. No significant interval change. Michael Eisenberg MD Lumbar Puncture Fluoroscopy 12/11/17 0000 Signed Impressions: Service Date/Time: November 11:03 - CONCLUSION: Uncomplicated fluoroscopically guided lumbar puncture with pressures as above. Michael Eisenberg MD Head CT 12/10/17 0000 Signed Impressions: Service Date/Time: Sunday, December 10, 2017 12:58 - CONCLUSION: 1. Sellar/suprasellar mass which has been described on recent studies including MRI of the brain. 2. Stable cerebral atrophy and moderate periventricular/subcortical white matter small vessel ischemic changes bilaterally. 3. 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 4. No acute infarct, acute hemorrhage, midline shift or extra-axial bleed. Thien Elkins MD Lower Extremity Ultrasound [id number]/08/171907 Signed Impressions: Service Date/Time: Friday, December 08, 2017 18:53 - CONCLUSION: Normal examination. Manuel Perez MD Brain MRI [id number]/171907 Signed Impressions: Service Date/Time: Friday, December 08, 2017 21:51 - CONCLUSION: 1. 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 This is of mixed signal intensity. No definite enhancement. 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 Followup study in 3 months recommended for stability. 2. Cerebral atrophy with old bilateral basal ganglia lacunar infarcts. 3. The Sean Rodriguez MD Objective Remarks Awake and alert nad PERRLA S1S2 RR, systolic III/ murmur, no rubs or gallops no edema in lower extremities Abdomen is mildly distended, firm, mildly tender to palpation diffusely, no rebound tenderness or guarding noted. Bowel sounds present Procedures 12/11- LP Medications and IVs Current Medications Medications (Trade) Dose Ordered Sig/Karli Route Start Time Stop Time Status Last Admin (NS Flush) 2 ml UNSCH PRN IV FLUSH 12/08/17 15:45 (NS Flush) 2 ml BID IV FLUSH 12/08/17 21:00 12/23/17 22:21 (Norvasc) 10 mg DAILY PO 12/09/17 09:00 12/24/17 09:36 (Neurontin) 300 mg BID PO 12/08/17 21:00 12/24/17 09:36 (Apresoline Inj) 10 mg Q30M PRN IV PUSH 12/08/17 20:45 12/13/17 18:06 (Tylenol) 650 mg Q6HR PRN PO 12/09/17 15:15 12/20/17 09:25 (Cardura) 2 mg DAILY PO 12/10/17 09:00 12/24/17 09:36 (Trandate Inj) 10 mg Q6H PRN IV PUSH 12/09/17 16:15 12/16/17 05:24 (Tylenol Supp) 650 mg Q6H PRN RECTAL 12/10/17 04:45 12/18/17 16:07 Dextrose/Sodium Chloride 1,000 ml @ 50 mls/hr Q20H IV 12/11/17 08:30 12/24/17 00:11 (Mycostatin Liq) 5 ml QID SWISH-SWAL 12/11/17 13:00 12/24/17 12:30 (Lopressor) 25 mg Q8H PO 12/12/17 16:00 12/24/17 09:36 (Catapres) 0.1 mg Q6H PRN PO 12/12/17 15:45 12/18/17 01:51 (Lovenox Inj) 40 mg Q24H SQ 12/20/17 11:00 12/24/17 09:36 Lactated Ringer's 1,000 ml @ 30 mls/hr Q24H PRN IV 12/21/17 22:00 12/24/17 21:59 Sodium Chloride 500 ml @ 30 mls/hr [id number] PRN IV 12/21/17 22:00 12/24/17 21:59 (Betadine 5% Antisepsis Kit) 1 applic MACHINE INKER PRN EACH NARE 12/21/17 22:00 12/24/17 21:59 (Chlorhexidine 2% Cloth) 3 pack MACHINE INKER PRN TOPICAL 12/21/17 22:00 12/24/17 21:59 A/P Problem List: (1) Suprasellar mass ICD Code: R22.0 - Localized swelling, mass and lump, head (2) Fever ICD Code: R50.9 - Fever, unspecified (3) Elevated sedimentation rate ICD Code: R70.0 - Elevated erythrocyte sedimentation rate (4) Headache ICD Code: R51 - Headache (5) Encephalopathy ICD Code: G93.40 - Encephalopathy, unspecified (6) Low testosterone in male ICD Code: R79.89 - Other specified abnormal findings of blood chemistry Assessment and Plan Lethargy and Generalized Weakness 80% of his day is spent a sleep-like state, though his reports he is awake and listening despite having his eyes closed Encephalopathy secondary to sepsis is a possibility but low likelihood due to adequate treatment of infection without improvement in his affect Temporal artery biopsy is pending following elevated CRP and ESR, though the symptoms are not typical of that diagnosis Hypotestosteronism may be a partial contributor toward this symptomatology, testosterone shot given yesterday Sellar mass has thrown off a number of hormonal balances which may be contributing to his symptomatology as well Fever/encephalopathy Suspected giant cell arteritis Patient had fever and encephalopathy with abnormal urinalysis presenting with headache and dizziness. Abnormal UA with pyuria but negative culture. Abnormal chest x-ray with lung infiltrate and possible aspiration. Patient had a lumbar puncture CSF culture negative, blood cultures negative. Patient was initially treated with IV Zosyn. Sed rate and CRP elevated and likely fever not infectious related. Infectious disease specialist discontinued antibiotics. Temporal artery biopsy was obtained on 12/23/17. Pathology is pending. 12/24 since patient has had fever, headache and dizziness associated with elevated ESR and CRP suggestive of an autoimmune process. I will start the patient on oral prednisone to treat for vasculitis. The patient will be started 1 mg/kg with a maximum dose of 60 mg per day and treatment should be kept for about 2 but no more than 4 weeks and then prednisone should be tapered. Hypotestosteronism Total testosterone was 7.1, repeat level less than 10 (normal begins at 240) Patient is on Lovenox which reduces blood clot risk, with PSA screening returning normal Testosterone shot given on 12/20 Endocrinology consulted. Follow-up recommendations. sellar mass with visual disturbance/ dizziness/ falls chronic anticoagulation on coumadin - INR 1.1 on admission Neurosurgery consulted, recommended endocrinology workup. Suspected multifactorial encephalopathy. Ophthalmology consulted. Dr. Parada recommended outpatient follow-up for dilated exam and formal Rivera visual field test. Neurology consulted. Status post lumbar puncture with fluid results negative for suspicion of bacterial viral meningitis. Generalized Weakness (deconditioning) We will need long term rehab on discharge Intermittent hypertensive urgency Continue clonidine as needed Continue amlodipine BP stable. Oral thrush Nystatin swish and swallow 4 times daily Left buttock wound Appreciate wound care team consult Moderate skin thickness ulcer Calamine lotion recommended Constipation. Check abdomen KUB. Patient with no BM since 419 and transferrin abdomen. I will give MiraLAX p.o. [address] the constipation protocol. 12/24 constipation resolved. Continue stool softeners. DVT Prophylaxis Lovenox Discharge Planning Start patient on prednisone orally. Will monitor overnight. Possible discharge in a.m. if patient is tolerating the medication well. Mike Hennessy MD Dec 24, 2017 13:20
[2017-12-24] MEDS: predniSONE 20 MG TAB PO SCH (15:28)
[2017-12-24 15:38] LABS: % SATURATION IRON PROFILE 14.2 % (20-50); IRON (FE) 41 MCG/DL (65-175); TOTAL IRON BINDING CAPACITY 288 MCG/DL (250-450)
[2017-12-24 15:41] LABS: FERRITIN 108 NG/ML (26-388)
[2017-12-25] VITALS (8 sets, daily range): BP systolic 131–165; BP diastolic 68–90; PULSE 61–77; RESP 18–22; TEMP 97.7–98.6; O2SAT 97–98
[2017-12-25] MEDS: METOPROLOL TARTRATE 25 MG TAB PO SCH ×3 (00:37→15:40)
[2017-12-25] MEDS: NYSTATIN SUSP 500,000 U/5 ML CUP SWISH-SWAL SCH ×3 (08:22→18:00)
[2017-12-25] MEDS: SODIUM CHLORIDE 0.9% FLUSH 10 ML FLUSH IV FLUSH SCH (08:22)
[2017-12-25] MEDS: GABAPENTIN 300 MG CAP PO SCH (08:22)
[2017-12-25] MEDS: predniSONE 20 MG TAB PO SCH (08:22)
[2017-12-25] MEDS: DOXAZOSIN MESYLATE 2 MG TAB PO SCH (08:22)
[2017-12-25] MEDS: ENOXAPARIN SODIUM 40 MG/0.4 ML SYRINGE SQ SCH (08:32)
[2017-12-25] MEDS ORDERED: DOXAZOSIN MESYLATE 2 MG TAB PO ONE (09:15)
[2017-12-25 10:35] LABS: AUTOMATED NEUTROPHIL # 8.6 TH/MM3 (1.8-7.7); BASOPHIL % 0.2 % (0.0-2.0); HEMOGLOBIN 9.3 GM/DL (13.0-17.0); LYMPH % 8.7 % (9.0-44.0); LYMPHOCYTE # 0.9 TH/MM3 (1.0-4.8); MEAN CELL VOLUME 83.3 FL (80.0-100.0); MEAN CORPUSCULAR HEMOGLOBIN 27.8 PG (27.0-34.0); MEAN CORPUSCULAR HGB CONC 33.3 % (32.0-36.0); MEAN PLATELET VOLUME 6.4 FL (7.0-11.0); MONO % 4.6 % (0.0-8.0); MONOCYTE # 0.5 TH/MM3 (0-0.9); NEUT % 86.5 % (16.0-70.0); PLATELET COUNT 675 TH/MM3 (150-450); RED BLOOD COUNT 3.36 MIL/MM3 (4.50-5.90); WHITE BLOOD COUNT 9.9 TH/MM3 (4.0-11.0)
[2017-12-25 10:57] LABS: ALBUMIN 2.9 GM/DL (3.4-5.0); ALT (GPT) 69 U/L (12-78); AST (GOT) 48 U/L (15-37); BICARBONATE 27.4 MEQ/L (21.0-32.0); BLOOD UREA NITROGEN 29 MG/DL (7-18); C-REACTIVE PROTEIN 4.39 MG/DL (0.00-0.30); CALCIUM 8.9 MG/DL (8.5-10.1); CHLORIDE 104 MEQ/L (98-107); CREATININE 1.49 MG/DL (0.60-1.30); GLOMERULAR FILTRATION RATE 56 ML/MIN (>89); GLUCOSE,RANDOM 123 MG/DL (74-106); SODIUM (NA) 139 MEQ/L (136-145)
[2017-12-25 10:59] LABS: ALKALINE PHOSPHATASE 99 U/L (45-117); TOTAL BILIRUBIN ADULT 0.3 MG/DL (0.2-1.0); TOTAL PROTEIN 7.6 GM/DL (6.4-8.2)
--- NOTE | 2017-12-25 11:22 | HHI.IDPN ---
Note Infectious Disease Note . Patient is more awake. He now has his right eye more widely open. This reports that he was up in a chair earlier. He answers questions but does not verbally communicate without being asked questions. His breathing appears slightly labored. Temperature is improved. He is afebrile. 2D echocardiogram showed no vegetation. C-reactive protein is highly elevated. The sedimentation rate is elevated. CURTIS negative. Rheumatoid factor negative. Presented with altered mental status. The patient's notes that he was having difficulty with ambulation and he fell at home. He was initially brought to [facility] ED and then over to [facility]. He was evaluated on 12/08/2017. The patient apparently was having headache and dizziness for 2 days. When he first arrived, he was noted to be closing his eyes during the interview and that he was a poor historian. He also was noted to have a high systolic blood pressure. She notes that he had complained of headaches off and on, but that he had at most sustained headaches for a couple days before admission and that he was starting to develop dizziness. She also reports that he was having frequent urination, although he wears a diaper. PAST MEDICAL HISTORY: Hypertension. Noted to be on anticoagulation which reportedly started within the recent weeks. ALLERGIES: No known drug allergies. MEDICATIONS: Current Medications Medications (Trade) Dose Ordered Sig/Karli Route PRN Reason Start Time Stop Time Status Last Admin Dose Admin Sodium Chloride (NS Flush) 2 ml UNSCH PRN IV FLUSH FLUSH AFTER USING IV ACCESS 12/08/17 15:45 Sodium Chloride (NS Flush) 2 ml BID IV FLUSH 12/08/17 21:00 12/23/17 22:21 Amlodipine Besylate (Norvasc) 10 mg DAILY PO 12/09/17 09:00 12/24/17 09:36 Gabapentin (Neurontin) 300 mg BID PO 12/08/17 21:00 12/24/17 09:36 Hydralazine HCl (Apresoline Inj) 10 mg Q30M PRN IV PUSH bp>160/70 12/08/17 20:45 12/13/17 18:06 Acetaminophen (Tylenol) 650 mg Q6HR PRN PO headache/fever/pain1-4 12/09/17 15:15 12/20/17 09:25 Doxazosin Mesylate (Cardura) 2 mg DAILY PO 12/10/17 09:00 12/24/17 09:36 Labetalol HCl (Trandate Inj) 10 mg Q6H PRN IV PUSH SYS BP GREATER THAN 170 MMHG 12/09/17 16:15 12/16/17 05:24 Acetaminophen (Tylenol Supp) 650 mg Q6H PRN RECTAL fever 12/10/17 04:45 12/18/17 16:07 Dextrose/Sodium Chloride 1,000 ml @ 50 mls/hr Q20H IV 12/11/17 08:30 12/24/17 00:11 Nystatin (Mycostatin Liq) 5 ml QID SWISH-SWAL 12/11/17 13:00 12/24/17 12:30 Metoprolol Tartrate (Lopressor) 25 mg Q8H PO 12/12/17 16:00 12/24/17 09:36 Clonidine (Catapres) 0.1 mg Q6H PRN PO SBP>160, DBP>90 12/12/17 15:45 12/18/17 01:51 Enoxaparin Sodium (Lovenox Inj) 40 mg Q24H SQ 12/20/17 11:00 12/24/17 09:36 Lactated Ringer's 1,000 ml @ 30 mls/hr Q24H PRN IV SEE LABEL COMMENTS 12/21/17 22:00 12/24/17 21:59 Sodium Chloride 500 ml @ 30 mls/hr [id number] PRN IV SEE LABEL COMMENTS 12/21/17 22:00 12/24/17 21:59 Povidone Iodine (Betadine 5% Antisepsis Kit) 1 applic USER SUPPORT ANALYST PRN EACH NARE SEE LABEL COMMENTS 12/21/17 22:00 12/24/17 21:59 Chlorhexidine Gluconate (Chlorhexidine 2% Cloth) 3 pack USER SUPPORT ANALYST PRN TOPICAL SEE LABEL COMMENTS 12/21/17 22:00 12/24/17 21:59 SOCIAL HISTORY: The patient was born in [place]. Positive tobacco use, 1 pack a day. No alcohol. No illicit drugs. The patient is . Objective: Vital Signs Date Time Temp Pulse Resp B/P (MAP) Pulse Ox O2 Delivery O2 Flow Rate FiO2 12/24/17 12:26 98.3 86 18 128/66 (86) 96 12/24/17 09:19 97.8 74 18 149/86 (107) 95 12/24/17 07:00 74 12/24/17 06:07 65 12/24/17 05:03 64 12/24/17 04:31 98.4 69 18 104/68 (80) 96 12/24/17 04:02 60 12/24/17 03:01 67 12/24/17 02:04 68 12/24/17 01:03 68 12/23/17 23:58 98.4 74 16 143/68 (93) 95 12/23/17 23:44 66 12/23/17 23:13 76 12/23/17 22:00 69 12/23/17 21:05 56 12/23/17 20:47 74 12/23/17 20:32 98.3 77 16 135/72 (93) 95 12/23/17 15:05 98.1 76 18 139/70 (93) 92 12/23/17 15:00 72 Laboratory Tests Test 12/23/17 14:17 12/24/17 08:01 Blood Urea Nitrogen 28 MG/DL 24 MG/DL Creatinine 1.82 MG/DL 1.57 MG/DL Random Glucose 156 MG/DL 69 MG/DL Calcium Level 9.0 MG/DL 8.9 MG/DL Sodium Level 141 MEQ/L 142 MEQ/L Potassium Level 4.3 MEQ/L 4.3 MEQ/L Chloride Level 106 MEQ/L 108 MEQ/L Carbon Dioxide Level 27.1 MEQ/L 25.8 MEQ/L Anion Gap 8 MEQ/L 8 MEQ/L Estimat Glomerular Filtration Rate 44 ML/MIN 52 ML/MIN Laboratory Tests Test 12/16/17 12:38 Erythrocyte Sedimentation Rate 96 mm/hr Imaging: Chest X-Ray 12/16/17 0000 Signed Impressions: Service Date/Time: Saturday, December 16, 2017 12:59 - CONCLUSION: 1. Stable mild pulmonary vascular congestion. 2. No significant interval change. Michael Eisenberg MD Lumbar Puncture Fluoroscopy 12/11/17 0000 Signed Impressions: Service Date/Time: November 11:03 - CONCLUSION: Uncomplicated fluoroscopically guided lumbar puncture with pressures as above. Michael Eisenberg MD Head CT 12/10/17 0000 Signed Impressions: Service Date/Time: Sunday, December 10, 2017 12:58 - CONCLUSION: 1. Sellar/suprasellar mass which has been described on recent studies including MRI of the brain. 2. Stable cerebral atrophy and moderate periventricular/subcortical white matter small vessel ischemic changes bilaterally. 3. 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 4. No acute infarct, acute hemorrhage, midline shift or extra-axial bleed. Thien Elkins MD Chest X-Ray 12/10/17 0000 Signed Impressions: Service Date/Time: Sunday, December 10, 2017 13:30 - CONCLUSION: New parenchymal changes right base Bernardino Santo MD FACR Lower Extremity Ultrasound [id number]/08/171907 Signed Impressions: Service Date/Time: Friday, December 08, 2017 18:53 - CONCLUSION: Normal examination. Manuel Perez MD Brain MRI [id number] Signed Impressions: Service Date/Time: Friday, December 08, 2017 21:51 - CONCLUSION: 1. 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 This is of mixed signal intensity. No definite enhancement. 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 Followup study in 3 months recommended for stability. 2. Cerebral atrophy with old bilateral basal ganglia lacunar infarcts. 3. The Sean Rodriguez MD PHYSICAL EXAMINATION: GENERAL: No acute distress. HEENT: The mild ecchymosis at the superior orbital region at the right frontal aspect of the head and also at the area below the right orbit has faded. Extraocular movements appear grossly intact. Pupils reactive to light. No icterus. Oropharynx : Moist mucosa. NECK: Supple without adenopathy or swelling. LUNGS: Decreased breath sounds. HEART: Regular S1, S2, 2/6 systolic ejection murmur at the left sternal border. No rubs. No gallops. ABDOMEN: Bowel sounds diminished. Soft, no tenderness. EXTREMITIES: No clubbing, no cyanosis, no edema. SKIN: No diffuse rash. NEUROLOGIC: Nonfocal. Decreased strength. PSYCHIATRIC: Calm and cooperative. IMPRESSION: 1. Fever and abnormal urinalysis in a patient presenting with headache and dizziness. Also abnormal chest x-ray. Continues to have fever. Negative workup to date. The sedimentation rate is elevated. C-reactive protein is elevated Fever probably not infection related. Rule out autoimmune disease. Rule out temporal arteritis/vasculitis. Temporal artery biopsy does not reveal changes of temporal arteritis. 2. Lumbar puncture revealed 3 white cells in tube #4 and normal glucose with elevated protein. Does not appear to have central nervous system infection. CSF culture is negative. 3. Abnormality on MRI. The patient with known pituitary mass. This is felt to be a pituitary adenoma. 4. Pneumonia based on abnormal chest x-ray with parenchymal changes at the right base. However, the patient does not appear to be coughing or producing sputum and possibly this could be from aspiration. 5. Acute renal disease. 6. Altered mental status. Appears to be improving. No evidence of infection on workup. RECOMMENDATIONS: Discussed with Dr. Ray. Patient to be treated for vasculitis since The symptoms suggested possible vasculitis and infection workup has been negative. No antibiotics necessary. He can be discharged from ID standpoint. Ghulam Ascencio MD Dec 25, 2017 11:22
--- NOTE | 2017-12-25 11:49 | HHI.DCPOC ---
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 Avoid second hand smoke Call the 24-hour hour crisis hotline for domestic abuse at Mike Hennessy MD Dec 25, 2017 11:49
[2017-12-25] MEDS ORDERED: CARD4TAB2 PO (17:06)
[2017-12-25] MEDS ORDERED: PRED20 PO (17:06)
[2017-12-25] MEDS ORDERED: ENOX40P SQ (17:06)
[2017-12-25] MEDS ORDERED: METO25TA3 PO (17:07)
--- NOTE | 2017-12-25 17:13 | HHI.DS ---
Discharge Summary Admission Date Dec 10, 2017 at 11:31 Discharge Date: Dec 25, 2017 Admitting Diagnosis (1) Suprasellar mass ICD Code: R22.0 - Localized swelling, mass and lump, head (2) Fever ICD Code: R50.9 - Fever, unspecified (3) Elevated sedimentation rate ICD Code: R70.0 - Elevated erythrocyte sedimentation rate (4) Headache ICD Code: R51 - Headache (5) Encephalopathy ICD Code: G93.40 - Encephalopathy, unspecified (6) Low testosterone in male ICD Code: R79.89 - Other specified abnormal findings of blood chemistry Procedures 12/11- LP Brief History - From Admission hx from patient, at the bedside, daughter at the bedside, and review of records. pt is transferred here from [place] [facility] reports headaches and dizziness for past 2 days poor historian closing his eyes during interview bp was high in [place] and here as well 189/85 vison problems over past few months no fever no neck pain urinary incontinence for past 1 yr or so denies missing his meds fell down today fell down last month once as well it wasnt witnessed , he told his he fell he stated he fell on his bottom did not hit head no syncope otherwise denies other symptoms but again, closing his eyes during interview likely due to headaches or photosensitivity though he denies when asked CBC/BMP: 12/25/17 1020 12/25/17 1020 Significant Findings Laboratory Tests Test 12/23/17 14:17 12/24/17 08:01 12/25/17 10:20 Blood Urea Nitrogen 28 MG/DL (7-18) 24 MG/DL (7-18) 29 MG/DL (7-18) Creatinine 1.82 MG/DL (0.60-1.30) 1.57 MG/DL (0.60-1.30) 1.49 MG/DL (0.60-1.30) Random Glucose 156 MG/DL (74-106) 69 MG/DL (74-106) 123 MG/DL (74-106) Estimat Glomerular Filtration Rate 44 ML/MIN (>89) 52 ML/MIN (>89) 56 ML/MIN (>89) Chloride Level 108 MEQ/L (98-107) Iron Level 41 MCG/DL (65-175) Percent Iron Saturation 14.2 % (20-50) Red Blood Count 3.36 MIL/MM3 (4.50-5.90) Hemoglobin 9.3 GM/DL (13.0-17.0) Hematocrit 28.0 % (39.0-51.0) Platelet Count 675 TH/MM3 (150-450) Mean Platelet Volume 6.4 FL (7.0-11.0) Neutrophils (%) (Auto) 86.5 % (16.0-70.0) Lymphocytes (%) (Auto) 8.7 % (9.0-44.0) Neutrophils # (Auto) 8.6 TH/MM3 (1.8-7.7) Lymphocytes # (Auto) 0.9 TH/MM3 (1.0-4.8) Erythrocyte Sedimentation Rate 102 mm/hr (0-20) Albumin 2.9 GM/DL (3.4-5.0) Aspartate Amino Transf (AST/SGOT) 48 U/L (15-37) C-Reactive Protein 4.39 MG/DL (0.00-0.30) Imaging Last Impressions Chest X-Ray 12/16/17 0000 Signed Impressions: Service Date/Time: Saturday, December 16, 2017 12:59 - CONCLUSION: 1. Stable mild pulmonary vascular congestion. 2. No significant interval change. Michael Eisenberg MD Lumbar Puncture Fluoroscopy 12/11/17 0000 Signed Impressions: Service Date/Time: November 11:03 - CONCLUSION: Uncomplicated fluoroscopically guided lumbar puncture with pressures as above. Michael Eisenberg MD Head CT 12/10/17 0000 Signed Impressions: Service Date/Time: Sunday, December 10, 2017 12:58 - CONCLUSION: 1. Sellar/suprasellar mass which has been described on recent studies including MRI of the brain. 2. Stable cerebral atrophy and moderate periventricular/subcortical white matter small vessel ischemic changes bilaterally. 3. 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 4. No acute infarct, acute hemorrhage, midline shift or extra-axial bleed. Thien Elkins MD Lower Extremity Ultrasound [id number]/[id number] Signed Impressions: Service Date/Time: Friday, December 08, 2017 18:53 - CONCLUSION: Normal examination. Manuel Perez MD Brain MRI [id number] Signed Impressions: Service Date/Time: Friday, December 08, 2017 21:51 - CONCLUSION: 1. 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 This is of mixed signal intensity. No definite enhancement. 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 Followup study in 3 months recommended for stability. 2. Cerebral atrophy with old bilateral basal ganglia lacunar infarcts. 3. The Sean Rodriguez MD PE at Discharge Awake and alert nad PERRLA S1S2 RR, systolic III/ murmur, no rubs or gallops no edema in lower extremities Abdomen is mildly distended, firm, mildly tender to palpation diffusely, no rebound tenderness or guarding noted. Bowel sounds present Pt Condition on Discharge: Stable Discharge Disposition: Discharge to SNF Discharge Time: > 30 minutes Discharge Instructions DIET: Follow Instructions for: Heart Healthy Diet Activities you can perform: Regular-No Restrictions Other Activity Instructions: As per PT OOB with assistance Follow up Referrals: Endocrinology - 2 Weeks Neurology - 2 Weeks Neurosurgery - 2 Weeks PCP Follow-up - 4 Weeks New Medications: Doxazosin (Cardura) 4 Mg Tab 4 MG PO DAILY for Blood Pressure Management, #31 TAB Enoxaparin Inj (Lovenox Inj) 40 Mg/0.4 Ml Syr 40 MG SQ Q24H for Blood Clot Prevention, #10 INJECTION Metoprolol Tartrate (Metoprolol Tartrate) 25 Mg Tab 25 MG PO Q8H for Blood Pressure Management, #93 TAB Prednisone (Prednisone) 20 Mg Tab 60 MG PO DAILY for Inflammation, #28 TAB Continued Medications: Amlodipine (Amlodipine) 10 Mg Tab 10 MG PO DAILY for Blood Pressure Management, TAB 0 Refills Clonidine (Clonidine) 0.1 Mg Tab 0.1 MG PO HS for Blood Pressure Management, TAB 0 Refills Gabapentin (Gabapentin) 300 Mg Cap 300 MG PO BID, CAP 0 Refills Warfarin (Warfarin) 2.5 Mg Tab 2.5 MG PO DAILY for Blood Clot Prevention, TAB 0 Refills Mike Hennessy MD Dec 25, 2017 17:13
--- NOTE | 2017-12-25 18:20 | HHI.PR ---
Subjective Remarks Patient is about to be discharged to rehab facility. 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 He was given one Testosterone injection in the hospital. Objective Vital Signs Date Time Temp Pulse Resp B/P (MAP) Pulse Ox O2 Delivery O2 Flow Rate FiO2 12/25/17 15:39 98.6 77 18 131/68 (89) 98 12/25/17 13:08 72 12/25/17 11:50 98.6 67 22 144/74 (97) 97 12/25/17 08:00 68 12/25/17 08:00 97.8 71 22 132/76 (94) 98 12/25/17 04:45 97.7 65 18 152/77 (102) 97 12/25/17 04:00 61 12/25/17 00:30 98.5 68 18 165/90 (115) 97 12/25/17 00:02 73 12/24/17 21:19 98.6 71 20 150/80 (103) 98 12/24/17 20:09 66 I/O 12/24/17 12/24/17 12/24/17 12/25/17 12/25/17 12/25/17 07:00 15:00 23:00 07:00 15:00 23:00 Intake Total 1000 ml 1230 ml 240 ml Output Total 400 ml 1400 ml Balance 600 ml -170 ml 240 ml Intake Oral 1230 ml 240 ml IV Total 1000 ml Output Urine Total 400 ml 1400 ml # Voids 1 2 1 1 1 # Bowel Movements 2 0 Result Diagram: 12/25/17 1020 12/25/17 1020 Objective Remarks Patient is awake and eating sitting up in bed. 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 Mental status changes History of Headaches At this point picture is consistent with Hypogonadotrophic hypogonadism of mixed etiology including his pituitary mass as well as his severe systemic illness. At this point I do not feel his testosterone levels are the main explanation to his mental status changes and how much of this will be due to his illness remains to be seen. In case supplemental testosterone is to be desired as an outpatient will recommend a transdermal gel hence avoiding intramuscular injections since he is going to be anti-coagulated with Warfarin. Otherwise this will also be easier to wean off gradually as needed in an outpatient setting. From my perspective recommend follow up in 1 month. Card provided to patient's . Thank you for allowing me to participate in the medical management of this interesting patient. Edmar Perez MD Dec 25, 2017 18:20
[2017-12-26] MEDS ORDERED: DOXAZOSIN MESYLATE 4 MG TAB PO SCH (09:00)
== END 2017-12-25 20:00 | DRG 853 ==
LOC: NEDDLT 18:24 → NEDA 18:34 → NEDH 12-09 01:01 → N04B 12-09 16:16 → HCIS 12-09 18:58 → OBSVTOIN 12-10 11:31 → HCIN 12-15 15:58
PROVIDERS: ADMIT Hospitalist; ATTEND Hospitalist
PROC: 009U3ZX Drainage of Spinal Canal, Percutaneous Approach, Diagnostic (ICD-10-PCS; principal; 2017-12-11)
PROC: 03BS0ZX Excision of Right Temporal Artery, Open Approach, Diagnostic (ICD-10-PCS; 2017-12-22)
DX: R50.9 Fever, unspecified (principal); G93.40 Encephalopathy, unspecified; N17.9 Acute kidney failure, unspecified; L89.329 Pressure ulcer of left buttock, unspecified stage; B37.0 Candidal stomatitis; N39.0 Urinary tract infection, site not specified; E87.1 Hypo-osmolality and hyponatremia; I16.0 Hypertensive urgency; D35.2 Benign neoplasm of pituitary gland; F17.210 Nicotine dependence, cigarettes, uncomplicated; H53.9 Unspecified visual disturbance; Z79.01 Long term (current) use of anticoagulants; I87.8 Other specified disorders of veins; R32 Unspecified urinary incontinence; W19.XXXA Unspecified fall, initial encounter; Y92.009 Unspecified place in unspecified non-institutional (private) residence as the place of occurrence of the external cause; Z86.73 Personal history of transient ischemic attack (TIA), and cerebral infarction without residual deficits; L84 Corns and callosities; N18.9 Chronic kidney disease, unspecified; K59.00 Constipation, unspecified; E29.1 Testicular hypofunction; R70.0 Elevated erythrocyte sedimentation rate; R51 Headache; I12.9 Hypertensive chronic kidney disease with stage 1 through stage 4 chronic kidney disease, or unspecified chronic kidney disease
CPT/HCPCS: 36415; 36600; 62270; 70450; 70553; 71045; 77003; 80048; 80053; 81001; 82140; 82533; 82670; 82728; 82805; 82945; 82948; 83001; 83002; 83036; 83540; 83550; 83605; 83615; 83735; 83880; 84100; 84146; 84157; 84305; 84403; 84410; 84439; 84443; 84484; 85025; 85027; 85610; 85652; 85730; 86038; 86140; 86430; 86592; 87015; 87040; 87070; 87086; 87102; 87116; 87205; 87206; 87493; 87529; 88108; 88304; 89051; 93005; 93306; 93970; 94664; 96374; 96376; A9579; G0103; G8987-GP; G8988-GP; J0131; J0330; J0360; J1071; J1100; J1650; J2270; J2370; J2405; J2543; J3010; J7040; J7042; J7050; J7512